=== PATIENT | female | born 1940 | race Caucasian/White ===

== ENCOUNTER 2016-06-27 19:37 | Inpatient (IN) | payer MEDICARE, MEDICAID ==
[~2016-06-27] VITALS: Ht 152.4 cm; Wt 39.6 kg
[~2016-06-27 19:37] MED LIST: ARIP5TAB20 PO; ASCO500T20 PO; ASPI-892 PO; BETH25TA PO; BSC10SU PR; CHOL100011 PO; DCS100C PO; FLUO10CA19 PO; FOLI1TAB24 PO; FURO40TA4 PO; HYDR-757 PO; IPRA3AMP11 INH; IRON150C13 PO; MAGN-47 PO; MELA1TAB11 PO; MEMA5TAB2 PO; MIRT15TA6 PO; MULT-974 PO; NF-TYLARTH PO; POLY17PO23 PO; TRAM50TA2 PO; WARF2.5T PO; [UNRECOGNIZED DRUG - CODE] PO
[2016-06-27] MEDS ORDERED: NS IV 1000 ML 1,000 ML IV ONE (19:44)
--- NOTE | 2016-06-27 20:53 | Diagnostic Imaging Report ---
INDICATION: Fever, poor appetite. COMPARISON: 10/28/2014. FINDINGS: Right basilar heterogeneous consolidations are new since prior examination. No pleural effusion or pneumothorax. Normal heart size. Normal pulmonary vasculature. IMPRESSION: 1. Right basilar pneumonia. Dictated by: Dictated on workstation # [id number]
[2016-06-27 20:54] LABS: INR 1.3 (0.8-1.4); PROTHROMBIN TIME PATIENT 15.4 SEC (12.2-14.7)
--- NOTE | 2016-06-27 20:58 | ED General ---
General Chief Complaint: Fever-Adult/Adol Stated Complaint: FEVER Nursing Triage Note: EMS activated for c/o poor eating. Pt report on scene included sats in 78% range for over an hr. 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 91% Rm air after EMS offload. Pt is non-verbal, hx Alzheimers. Nursing Sepsis Screen: Possible Sepsis Risk Source of Information: EMS, [facility] Records (ALL PMH IS FROM [facility] NOTES) History of Present Illness Time Seen by Provider: 19:40 Initial Comments PT ARRIVES VIA EMS FROM [facility] EMS WAS CALLED FOR PT WITH "DECREASED APPETITE" ON EMS ARRIVAL AT SCENE, PT WAS NOTED TO HAVE O2 SATS IN 70'S, AND HAD BEEN THAT WAY FOR AN HOUR ACCORDING TO [facility] STAFF O2 SATS IN LOW 90'S ON O2 BY EMS PT HAD TEMP OF 102.9, SO [facility] STAFF GAVE PT ONE TYLENOL AND ONE HYDROCODONE PT IS NON-VERBAL, LETHARGIC, AND DOES NOT FOLLOW ANY COMMANDS PT IS DNR NO OTHER INFORMATION IS OBTAINABLE PCP: DR. MOORE Allergies and Home Medications Allergies Coded Allergies: No Known Drug Allergies (Unverified , 10/20/14) Home Medications Acetaminophen 650 Mg Cplt, 650 MG PO Q4H PRN for PAIN, (Reported) Albuterol/Ipratropium 3 Ml Nebu, 3 ML INH Q6H PRN for SHORTNESS OF BREATH, ( Reported) Aripiprazole 5 Mg Tablet, 5 MG PO DAILY, (Reported) Ascorbic Acid 500 Mg Tablet, 500 MG PO DAILY, (Reported) Aspirin 81 Mg Tabec, 81 MG PO DAILY, (Reported) Bethanechol Chloride 25 Mg Tablet, 25 MG PO QID, (Reported) Bisacodyl 10 Mg Supp, 10 MG [place] DAILY PRN for CONSTIPATION, (Reported) Cholecalciferol 1,000 Unit Capsule, 2,000 UNIT PO DAILY, (Reported) TAKES 2 (1000UNIT) CAPSULES Docusate Sodium 100 Mg Cap, 100 MG PO BID, (Reported) Fluoxetine Hcl 10 Mg Capsule, 10 MG PO DAILY, (Reported) Folic Acid 1 Mg Tablet, 1 MG PO DAILY, (Reported) Furosemide 40 Mg Tablet, 40 MG PO DAILY, (Reported) Hydrocodone Bit/Acetaminophen 1 Tab Tablet, 1-2 PO Q4H, #60 (Reported) Magnesium Hydroxide 400 Mg/5 Ml Oral.susp, 30 ML PO DAILY PRN for NO BM FOR 3 DAYS, (Reported) Megestrol Acetate 8 Oz Susp, 200 MG PO BID, (Reported) Memantine Hcl 5 Mg Tablet, 10 MG PO BID, (Reported) TAKES 2 (5MG) TABLETS Mirtazapine 15 Mg Tablet, 7.5 MG PO HS, (Reported) TAKES 1/2 (7.5MG) TABLET Mirtazapine 15 Mg Tablet, 7.5 MG PO WITH EVENING MEAL, (Reported) TAKES 1/2 (15MG) TABLET Multivitamin 1 Each Tablet, 1 TAB PO DAILY, (Reported) Polyethylene Glycol 17 Gm Pack, 17 GM PO DAILY PRN for CONSTIPATION, (Reported) Polysaccharide Iron Complex 150 Mg Cap, 1 EACH PO BID, #60 (Reported) Pyridoxine/Melatonin 1 Tab Tablet, 6 MG PO HS, (Reported) TAKES 2 (3MG) TABLETS Tramadol Hcl 50 Mg Tablet, 50 MG PO TID PRN for PAIN, (Reported) Warfarin Sodium 2.5 Mg Tablet, 2.5 MG PO HS, #21 (Reported) Constitutional: see HPI, fever, other (UNABLE TO OBTAIN ANY INFORMATION FROM PT ) Past Itzovjj-Vrdodw-Qbksck Hx Patient Social History Smoking Status: Unknown if Ever Smoked 2nd Hand Smoke Exposure: No Recent Foreign Travel: No Contact w/Someone Who Travel: No Recent Infectious Disease Expo: No Recent Hopitalizations: No Immunizations Up To Date Tetanus Booster (TDap): Unknown Date of Influenza Vaccine: Sep 21, 2014 Seasonal Allergies Seasonal Allergies: No Surgeries HX Surgeries: Yes (RIGHT HIP FX / REPLACEMENT, SCAR TO RIGHT FLANK--? RENAL SURG ? ; SCAR IN RLQ--? APPY? ; SURGICAL SCAR TO LEFT ANKLE) Surgeries: Appendectomy, CABG, Orthopedic Respiratory Hx Respiratory Disorders: Yes Respiratory Disorders: COPD Cardiovascular Hx Cardiac Disorders: Yes Cardiac Disorders: Coronary Artery Disease, Hypertension Neurological Hx Neurological Disorders: Yes (ALZHEIMER'S ; ESSENTALLY NON-VERBAL) Neurological Disorders: Dementia Reproductive System Hx Reproductive Disorders: No Genitourinary Hx Genitourinary Disorders: Yes (RETENTION) Genitourinary Disorders: Neurogenic Bladder Gastrointestinal Hx Gastrointestinal Disorders: Yes (Hx Dysphagia) Gastrointestinal Disorders: Chronic Constipation Musculoskeletal Hx Musculoskeletal Disorders: Yes (RIGHT HIP FX) Musculoskeletal Disorders: Fractures Endocrine Hx Endocrine Disorders: No HEENT HX ENT Disorders: Yes (DYSPHAGIA) Cancer Hx Cancer: No Psychosocial Hx Psychiatric Problems: Yes (INSOMNIA) Behavioral Health Disorders: Sleep Difficulties, Bipolar, Depression Integumentary HX Skin/Integumentary Disorder: No Blood Transfusions Hx Blood Disorders: No Physical Exam Vital Signs Vital Sign - Last 12Hours 06/27/16 19:38 Temp 99.9 Pulse 102 Resp 20 B/P (MAP) 119/57 Pulse Ox 95 O2 Delivery Simple Mask Capillary Refill : Less Than 3 Seconds General Appearance: Thin, Other (PT LETHARGIC, LAYING IN POSITION ON LEFT SIDE. DOES OPEN EYES TO VOICE, BUT OTHERWISE DOES NOT FOLLOW ANY OTHER COMMANDS AND IS NOT TALKING ON ARRIVAL) HEENT: PERRL/EOMI, Other (DRY ORAL MUCOSA) Respiratory: Rales (IN BASES) Cardiovascular: Regular Rate, Rhythm, No Edema, No JVD, Normal Peripheral Pulses, Systolic Murmur (1-2/6) Gastrointestinal: Normal Bowel Sounds, No Organomegaly, No Pulsatile Mass, Non Tender, Soft Back: No CVA Tenderness Extremity: Normal Capillary Refill, Non Tender, No Pedal Edema Neurologic/Psychiatric: No Motor/Sensory Deficits (MOVES ALL EXTREMITIES), Other (MENTATION ABOVE. PT IS NOT TALKING OR FOLLOWING ANY COMMANDS OTHER THAN EYE OPENING TO VOICE. ) Skin: Normal Color, Warm/Dry, Other (DRESSING TO LEFT LOWER LEG IS CLEAN/ DRY / INTACT) Focused Exam Lactic Acid Level Progress/Results/Core Measures Results/Orders Lab Results Laboratory Tests Test 06/27/16 20:28 06/27/16 21:00 06/27/16 23:09 Range/Units White Blood Count 14.6 H 4.3-11.0 10^3/uL Red Blood Count 4.58 4.35-5.85 10^6/uL Hemoglobin 12.5 11.5-16.0 G/DL Hematocrit 40 35-52 % Mean Corpuscular Volume 87 80-99 FL Mean Corpuscular Hemoglobin 27 25-34 PG Mean Corpuscular Hemoglobin Concent 31 L 32-36 G/DL Red Cell Distribution Width 15.2 H 10.0-14.5 % Platelet Count 306 130-400 10^3/uL Mean Platelet Volume 10.0 7.4-10.4 FL Neutrophils (%) (Auto) 87 H 42-75 % Lymphocytes (%) (Auto) 6 L 12-44 % Monocytes (%) (Auto) 7 0-12 % Eosinophils (%) (Auto) 0 0-10 % Basophils (%) (Auto) 0 0-10 % Neutrophils # (Auto) 12.7 H 1.8-7.8 X 10^3 Lymphocytes # (Auto) 0.8 L 1.0-4.0 X 10^3 Monocytes # (Auto) 1.0 0.0-1.0 X 10^3 Eosinophils # (Auto) 0.0 0.0-0.3 10^3/uL Basophils # (Auto) 0.0 0.0-0.1 10^3/uL Neutrophils % (Manual) 72 % Lymphocytes % (Manual) 10 % Monocytes % (Manual) 5 % Eosinophils % (Manual) 0 % Basophils % (Manual) 0 % Band Neutrophils 13 % Blood Morphology Comment NORMAL Prothrombin Time 15.4 H 12.2-14.7 SEC INR Comment 1.3 0.8-1.4 Activated Partial Thromboplast Time 40 H 24-35 SEC Sodium Level 144 135-145 MMOL/L Potassium Level 4.0 3.6-5.0 MMOL/L Chloride Level 106 98-107 MMOL/L Carbon Dioxide Level 25 21-32 MMOL/L Anion Gap 13 5-14 MMOL/L Blood Urea Nitrogen 37 H 7-18 MG/DL Creatinine 0.99 0.60-1.30 MG/DL Estimat Glomerular Filtration Rate 54 BUN/Creatinine Ratio 37 Glucose Level 132 H 70-105 MG/DL Lactic Acid Level 0.90 0.50-2.00 MMOL/L Calcium Level 9.8 8.5-10.1 MG/DL Magnesium Level 2.1 1.8-2.4 MG/DL Total Bilirubin 0.3 0.1-1.0 MG/DL Aspartate Amino Transf (AST/SGOT) 30 5-34 U/L Alanine Aminotransferase (ALT/SGPT) 21 0-55 U/L Alkaline Phosphatase 101 40-136 U/L Total Creatine Kinase 24 L 29-168 U/L Creatine Kinase MB 0.9 <6.6 NG/ML Troponin I < 0.30 <0.30 NG/ML B-Type Natriuretic Peptide 48.2 <100.0 PG/ML Total Protein 8.0 6.4-8.2 G/DL Albumin 3.4 3.2-4.5 G/DL Blood Gas Puncture Site RIGHT RADIAL Blood Gas Patient Temperature 99.9 Arterial Blood pH 7.33 *L 7.37-7.43 Arterial Blood Partial Pressure CO2 56 H 35-45 MMHG Arterial Blood Partial Pressure O2 51 L 79-93 MMHG Arterial Blood HCO3 28 H 23-27 MMOL/L Arterial Blood Total CO2 29.6 21.0-31.0 MMOL/L Arterial Blood Oxygen Saturation 81 L 94-100 % Arterial Blood Base Excess 2.6 H -2.5-2.5 MMOL/L Ken Test POSITIVE Blood Gas Ventilator Setting NO Blood Gas Inspired Oxygen 6L Urine Color YELLOW Urine Clarity VERY CLOUDY H Urine pH 5 5-9 Urine Specific [place] 1.015 L 1.016-1.022 Urine Protein 3+ H NEGATIVE Urine Glucose (UA) NEGATIVE NEGATIVE Urine Ketones NEGATIVE NEGATIVE Urine Nitrite NEGATIVE NEGATIVE Urine Bilirubin NEGATIVE NEGATIVE Urine Urobilinogen NORMAL NORMAL MG/DL Urine Leukocyte Esterase 3+ H NEGATIVE Urine RBC (Auto) 5+ H NEGATIVE Urine RBC >100 H /HPF Urine WBC 10-25 H /HPF Urine Squamous Epithelial Cells 2-5 /HPF Urine Crystals NONE /LPF Urine Bacteria FEW H /HPF Urine Casts NONE /LPF Urine Mucus NEGATIVE /LPF Urine Culture Indicated YES Micro Results Microbiology 06/27/16 Influenza Types A,B Antigen (SUKUMAR) - Final, Complete My Orders Orders - AMTEUSZ BREWER DO Saline Lock/Iv-Start (06/27/16 19:44) Ekg Tracing (06/27/16 19:44) O2 (06/27/16 19:44) Monitor-Rhythm Ecg Trace Only (06/27/16 19:44) Arterial Blood Gas (06/27/16 19:44) BNP (06/27/16 19:44) Cbc With Automated Diff (06/27/16 19:44) Comprehensive Metabolic Panel (06/27/16 19:44) Creatine Kinase (06/27/16 19:44) Creatine Kinase Mb (06/27/16 19:44) Lactic Acid Analyzer (06/27/16 19:44) Magnesium (06/27/16 19:44) Protime With Inr (06/27/16 19:44) Partial Thromboplastin Time (06/27/16 19:44) Troponin I (06/27/16 19:44) Blood Culture (06/27/16 19:44) Influenza A And B Antigens (06/27/16 19:44) Chest 1 View, Ap/Pa Only (06/27/16 19:44) Saline Lock/Iv-Start (06/27/16 19:44) Ns Iv 1000 Ml (Sodium Chloride 0.9%) (06/27/16 19:44) Manual Differential (06/27/16 20:28) Ceftriaxone Injection (Rocephin Injectio (06/27/16 21:15) Medications Given in ED Current Medications Medications Dose Ordered Sig/Yonny Route Start Time Stop Time Status Last Admin Dose Admin Sodium Chloride 1,000 ml @ 0 mls/hr Q0M ONCE IV 06/27/16 19:44 06/27/16 19:46 DC 06/27/16 20:38 999 MLS/HR Vital Signs/I&O Vital Sign - Last 12Hours 06/27/16 06/27/16 06/27/16 06/27/16 19:38 21:30 21:30 21:38 Temp 99.9 98.4 98.4 Pulse 102 89 89 Resp 20 18 18 B/P (MAP) 119/57 132/62 132/62 Pulse Ox 95 100 100 91 O2 Delivery Simple Mask Simple Mask Simple Mask O2 Flow Rate 4.00 4.00 4.00 06/27/16 06/27/16 06/27/16 06/27/16 22:00 22:10 22:10 22:35 Temp 98.4 97.6 Pulse 89 89 Resp 18 18 B/P (MAP) 148/69 Pulse Ox 99 99 99 98 O2 Delivery Simple Mask Simple Mask O2 Flow Rate 4.00 4.00 4.00 2.00 06/28/16 06/28/16 06/28/16 06/28/16 00:10 01:03 02:04 04:03 Temp 97.8 96.8 96.8 Pulse 91 85 93 87 Resp 20 16 16 B/P (MAP) 156/74 143/57 159/63 Pulse Ox 95 96 97 O2 Delivery Nasal Cannula Nasal Cannula Nasal Cannula O2 Flow Rate 2.00 2.00 2.00 06/28/16 04:50 Temp 96.0 Pulse 90 Resp 16 B/P (MAP) 146/87 Pulse Ox 92 O2 Delivery Nasal Cannula O2 Flow Rate 2.00 Blood Pressure Mean: 77 Progress Note : Progress Note O2 SATS REMAINED 95-96 % ON 6L / SIMPLE MASK PT MUCH MORE ALERT AT TIME OF ADMIT AND NODS HEAD WHEN I TOLD HER SHE HAD PNEUMONIA AND WOULD BE STAYING IN HOSPITAL, AND SAYS "YES" WHEN I ASKED HER IF SHE HAD BEEN COUGHING. NO OTHER VERBAL RESPONSE FROM PT ECG Initial ECG Impression Time: 20:05 Initial ECG Rate: 98 Initial ECG Rhythm: Normal Sinus Initial ECG Comparisson: No Previous ECG Available Diagnostic Imaging Comments CXR--RIGHT BASILAR PNEUMONIA--PER RADIOLOGIST REPORT @ 2056 Reviewed: Reviewed by Me Departure Communication Progress Notes 2024--SPOKE WITH DR. MOORE--WILL CALL HIM BACK WITH ALL TEST RESULTS. 2107--SPOKE WITH DR. MOORE--ACCEPTS PT FOR ADMIT Impression Impression: Primary Impression: RLL pneumonia Additional Impressions: Hypoxia Sepsis Dementia Acute respiratory failure Dehydration Disposition: ADMITTED INPATIENT Condition: Improved Decision to Admit Reason: Admit from ER (General) Decision to Admit/Date: Jun 27, 2016 Time/Decision to Admit Time: 21:00 Departure-Patient Inst. Referrals: LO MOORE DO (PCP/Family) Primary Care Physician MATEUSZ BREWER DO Jun 27, 2016 20:58
[2016-06-27 20:59] LABS: BASOPHILS % (AUTO) 0 % (0-10); EOSINOPHILS % (AUTO) 0 % (0-10); LYMPHOCYTES # (AUTO) 0.8 X 10^3 (1.0-4.0); LYMPHOCYTES % (AUTO) 6 % (12-44); MEAN CORPUSCULAR HEMOGLOBIN 27 PG (25-34); MEAN CORPUSCULAR HGB CONC 31 G/DL (32-36); MEAN CORPUSCULAR VOLUME 87 FL (80-99); MONOCYTES % (AUTO) 7 % (0-12); NEUTROPHILS # (AUTO) 12.7 X 10^3 (1.8-7.8); NEUTROPHILS % (AUTO) 87 % (42-75); PLATELET COUNT 306 10^3/uL (130-400); RED BLOOD COUNT 4.58 10^6/uL (4.35-5.85); RED CELL DISTRIBUTION WIDTH 15.2 % (10.0-14.5); WHITE BLOOD COUNT 14.6 10^3/uL (4.3-11.0)
[2016-06-27 21:05] LABS: ABG BASE EXCESS 2.6 MMOL/L (-2.5-2.5); ABG HCO3 28 MMOL/L (23-27); ABG OXYGEN SATURATION 81 % (94-100); ABG PCO2 56 MMHG (35-45); ABG PO2 51 MMHG (79-93); ABG TCO2 29.6 MMOL/L (21.0-31.0)
[2016-06-27 21:06] LABS: ABG PH 7.33 (7.37-7.43); ALLENS TEST POSITIVE
[2016-06-27 21:07] LABS: PATIENT TEMP 99.9
[2016-06-27 21:07] LABS: ALANINE AMINOTRANSFERASE 21 U/L (0-55); ALBUMIN 3.4 G/DL (3.2-4.5); ANION GAP 13 MMOL/L (5-14); ASPARTATE AMINO TRANSFERASE 30 U/L (5-34); BILIRUBIN,TOTAL 0.3 MG/DL (0.1-1.0); BLOOD UREA NITROGEN 37 MG/DL (7-18); BUN/CREATININE RATIO 37; CALCIUM 9.8 MG/DL (8.5-10.1); CARBON DIOXIDE 25 MMOL/L (21-32); CHLORIDE 106 MMOL/L (98-107); CREATINE KINASE 24 U/L (29-168); CREATININE SERUM 0.99 MG/DL (0.60-1.30); GFR ESTIMATED 54; GLUCOSE 132 MG/DL (70-105); MAGNESIUM 2.1 MG/DL (1.8-2.4); SODIUM 144 MMOL/L (135-145)
[2016-06-27 21:13] LABS: TROPONIN I < 0.30 NG/ML (<0.30)
[2016-06-27 21:15] LABS: BAND NEUTROPHILS 13 %; BASOPHILS % (MANUAL) 0 %; EOSINOPHILS % (MANUAL) 0 %; LYMPHOCYTES % (MANUAL) 10 %; NEUTROPHILS % (MANUAL) 72 %
[2016-06-27] MEDS ORDERED: cefTRIAXone INJECTION 1,000 MG in NS (IVPB) 50 ML IV ONE (21:15)
[2016-06-27 21:30] VITALS: BP 132/62
[2016-06-27 22:10] VITALS: BP 148/69
[2016-06-27] MEDS ORDERED: AZITHROMYCIN 500 MG/NS 250 ML IVPB (1 X DOSE) IV SCH ×2 (22:32)
[2016-06-27] MEDS ORDERED: RT-ALBUTEROL SULF 2.5 MG/3 ML PRE-MIX VIAL IH PRN (22:45)
[2016-06-27] MEDS ORDERED: ACETAMINOPHEN 650 MG SUPP (TYLENOL) PR PRN (22:45)
[2016-06-27 23:14] LABS: BILIRUBIN,URINE NEGATIVE (NEGATIVE); KETONES,URINE NEGATIVE (NEGATIVE); LEUKOCYTE ESTERASE ,URINE 3+ (NEGATIVE); NITRITE,URINE NEGATIVE (NEGATIVE); PH,URINE 5 (5-9); PROTEIN,URINE 3+ (NEGATIVE); UROBILINOGEN,URINE NORMAL (NORMAL)
[2016-06-27] MEDS: D5 1/2 NS 1000 ML IV SOLUTION 1,000 ML IV SCH (23:18)
[2016-06-28] VITALS (11 sets, daily range): BP systolic 103–166; BP diastolic 57–87
[2016-06-28 06:11] LABS: BASOPHILS % (AUTO) 0 % (0-10); EOSINOPHILS % (AUTO) 0 % (0-10); LYMPHOCYTES # (AUTO) 0.9 X 10^3 (1.0-4.0); LYMPHOCYTES % (AUTO) 6 % (12-44); MEAN CORPUSCULAR HEMOGLOBIN 27 PG (25-34); MEAN CORPUSCULAR HGB CONC 30 G/DL (32-36); MEAN CORPUSCULAR VOLUME 89 FL (80-99); MONOCYTES % (AUTO) 7 % (0-12); NEUTROPHILS % (AUTO) 87 % (42-75); PLATELET COUNT 270 10^3/uL (130-400); RED BLOOD COUNT 3.83 10^6/uL (4.35-5.85); RED CELL DISTRIBUTION WIDTH 14.9 % (10.0-14.5); WHITE BLOOD COUNT 13.8 10^3/uL (4.3-11.0)
[2016-06-28 06:28] LABS: ALANINE AMINOTRANSFERASE 18 U/L (0-55); ALBUMIN 2.8 G/DL (3.2-4.5); ANION GAP 8 MMOL/L (5-14); ASPARTATE AMINO TRANSFERASE 22 U/L (5-34); BILIRUBIN,TOTAL 0.2 MG/DL (0.1-1.0); BLOOD UREA NITROGEN 26 MG/DL (7-18); BUN/CREATININE RATIO 34; CALCIUM 8.8 MG/DL (8.5-10.1); CARBON DIOXIDE 26 MMOL/L (21-32); CHLORIDE 111 MMOL/L (98-107); CREATININE SERUM 0.76 MG/DL (0.60-1.30); GFR ESTIMATED > 60; GLUCOSE 141 MG/DL (70-105); POTASSIUM 3.9 MMOL/L (3.6-5.0); SODIUM 145 MMOL/L (135-145); TOTAL PROTEIN 6.6 G/DL (6.4-8.2)
[2016-06-28] MEDS ORDERED: CATHETER FLUSH 10 ML SYR IV PRN (07:00)
[2016-06-28] MEDS ORDERED: PHARMACY TO DOSE IV SCH (07:30)
[2016-06-28] MEDS ORDERED: PIPERACILLIN SODIUM/TAZOBACTAM 4.5 GM in NS (IVPB) 100 ML IV SCH (07:30)
--- NOTE | 2016-06-28 07:30 | Pulmonary Consultation ---
History of Present Illness History of Present Illness Date of Consultation 06/28/16 07:25 Date of Admission History of Present Illness 75yo pt from [place] [facility] presented secondary to decreased appetite. Upon EMS arrival Sp02 was 70's. Pt was also found to have a fever of 102.9. CXR shows RLL pneumonia. I am consulted for pulmonary. Allergies and Home Medications Allergies Coded Allergies: No Known Drug Allergies (Unverified , 10/20/14) Home Medications Acetaminophen 650 Mg Cplt, 650 MG PO Q4H PRN for PAIN, (Reported) Albuterol/Ipratropium 3 Ml Nebu, 3 ML INH Q6H PRN for SHORTNESS OF BREATH, ( Reported) Aripiprazole 5 Mg Tablet, 5 MG PO DAILY, (Reported) Ascorbic Acid 500 Mg Tablet, 500 MG PO DAILY, (Reported) Aspirin 81 Mg Tabec, 81 MG PO DAILY, (Reported) Bethanechol Chloride 25 Mg Tablet, 25 MG PO QID, (Reported) Bisacodyl 10 Mg Supp, 10 MG [place] DAILY PRN for CONSTIPATION, (Reported) Cholecalciferol 1,000 Unit Capsule, 2,000 UNIT PO DAILY, (Reported) TAKES 2 (1000UNIT) CAPSULES Docusate Sodium 100 Mg Cap, 100 MG PO BID, (Reported) Fluoxetine Hcl 10 Mg Capsule, 10 MG PO DAILY, (Reported) Folic Acid 1 Mg Tablet, 1 MG PO DAILY, (Reported) Furosemide 40 Mg Tablet, 40 MG PO DAILY, (Reported) Hydrocodone Bit/Acetaminophen 1 Tab Tablet, 1-2 PO Q4H, #60 (Reported) Magnesium Hydroxide 400 Mg/5 Ml Oral.susp, 30 ML PO DAILY PRN for NO BM FOR 3 DAYS, (Reported) Megestrol Acetate 8 Oz Susp, 200 MG PO BID, (Reported) Memantine Hcl 5 Mg Tablet, 10 MG PO BID, (Reported) TAKES 2 (5MG) TABLETS Mirtazapine 15 Mg Tablet, 7.5 MG PO HS, (Reported) TAKES 1/2 (7.5MG) TABLET Mirtazapine 15 Mg Tablet, 7.5 MG PO WITH EVENING MEAL, (Reported) TAKES 1/2 (15MG) TABLET Multivitamin 1 Each Tablet, 1 TAB PO DAILY, (Reported) Polyethylene Glycol 17 Gm Pack, 17 GM PO DAILY PRN for CONSTIPATION, (Reported) Polysaccharide Iron Complex 150 Mg Cap, 1 EACH PO BID, #60 (Reported) Pyridoxine/Melatonin 1 Tab Tablet, 6 MG PO HS, (Reported) TAKES 2 (3MG) TABLETS Tramadol Hcl 50 Mg Tablet, 50 MG PO TID PRN for PAIN, (Reported) Warfarin Sodium 2.5 Mg Tablet, 2.5 MG PO HS, #21 (Reported) Past Fbfodpj-Qzmfns-Jubjkt Hx Patient Social History Smoking Status: Unknown if Ever Smoked 2nd Hand Smoke Exposure: No Recent Foreign Travel: No Contact w/Someone Who Travel: No Recent Infectious Disease Expo: No Recent Hopitalizations: No Physical Abuse Screen: No Sexual Abuse: No Immunizations Up To Date Tetanus Booster (TDap): Unknown Date of Pneumonia Vaccine: Oct 24, 2014 Date of Influenza Vaccine: Jan 17, 2016 Seasonal Allergies Seasonal Allergies: No Surgeries HX Surgeries: Yes (RIGHT HIP FX / REPLACEMENT, SCAR TO RIGHT FLANK--? RENAL SURG ? ; SCAR IN RLQ--? APPY? ; SURGICAL SCAR TO LEFT ANKLE) Surgeries: Appendectomy, CABG, Orthopedic Respiratory Hx Respiratory Disorders: Yes Respiratory Disorders: COPD Cardiovascular Hx Cardiac Disorders: Yes Cardiac Disorders: Coronary Artery Disease, Hypertension Neurological Hx Neurological Disorders: Yes (ALZHEIMER'S ; ESSENTALLY NON-VERBAL) Neurological Disorders: Dementia Reproductive System Hx Reproductive Disorders: No Genitourinary Hx Genitourinary Disorders: Yes (RETENTION) Genitourinary Disorders: Neurogenic Bladder Gastrointestinal Hx Gastrointestinal Disorders: Yes (Hx Dysphagia) Gastrointestinal Disorders: Chronic Constipation Musculoskeletal Hx Musculoskeletal Disorders: Yes (RIGHT HIP FX) Musculoskeletal Disorders: Fractures Endocrine Hx Endocrine Disorders: No HEENT HX ENT Disorders: Yes (DYSPHAGIA) Cancer Hx Cancer: No Psychosocial Hx Psychiatric Problems: Yes (INSOMNIA) Behavioral Health Disorders: Sleep Difficulties, Bipolar, Depression Integumentary HX Skin/Integumentary Disorder: No Blood Transfusions Hx Blood Disorders: No Family Medical History Family Medial History: Patient reports no known family medical history. Exam Exam Vital Signs Date Time Temp Pulse Resp B/P (MAP) Pulse Ox O2 Delivery O2 Flow Rate FiO2 06/28/16 07:00 89 2.00 06/28/16 06:10 98.4 103 18 138/57 91 Nasal Cannula 2.00 06/28/16 04:50 96.0 90 16 146/87 92 Nasal Cannula 2.00 06/28/16 04:03 96.8 87 16 159/63 97 Nasal Cannula 2.00 06/28/16 02:04 96.8 93 16 143/57 96 Nasal Cannula 2.00 06/28/16 01:03 85 06/28/16 00:10 97.8 91 20 156/74 95 Nasal Cannula 2.00 06/27/16 22:35 98 2.00 06/27/16 22:10 97.6 89 18 148/69 99 Simple Mask 4.00 06/27/16 22:10 99 Simple Mask 4.00 06/27/16 22:00 98.4 89 18 99 4.00 06/27/16 21:38 91 Simple Mask 4.00 06/27/16 21:30 98.4 89 18 132/62 100 Simple Mask 4.00 06/27/16 21:30 98.4 89 18 132/62 100 4.00 06/27/16 19:38 99.9 102 20 119/57 95 Simple Mask I & O 06/28/16 07:00 Intake Total 1300 ml Output Total 100 ml Balance 1200 ml General Appearance: Thin, Other (PT LETHARGIC, LAYING IN POSITION ON LEFT SIDE. DOES OPEN EYES TO VOICE, BUT OTHERWISE DOES NOT FOLLOW ANY OTHER COMMANDS AND IS NOT TALKING ON ARRIVAL) HEENT: PERRL/EOMI, Other (DRY ORAL MUCOSA) Respiratory: Rales (IN BASES) Cardiovascular: Regular Rate, Rhythm, No Edema, No JVD, Normal Peripheral Pulses, Systolic Murmur (1-2/6) Capillary Refill: Less Than 3 Seconds Extremity: Normal Capillary Refill, Non Tender, No Pedal Edema Neurologic/Psychiatric: No Motor/Sensory Deficits (MOVES ALL EXTREMITIES), Other (MENTATION ABOVE. PT IS NOT TALKING OR FOLLOWING ANY COMMANDS OTHER THAN EYE OPENING TO VOICE. ) Skin: Normal Color, Warm/Dry, Other (DRESSING TO LEFT LOWER LEG IS CLEAN/ DRY / INTACT) Results Lab Laboratory Tests 06/27/16 20:28 06/28/16 06:00 Assessment/Plan Assessment/Plan HCAP with hypoxia and sepsis -Change Abx to vanco zosyn -await wright cultures Dementia Dehydration -IVF Clinical Quality Measures DVT/VTE Risk/Contraindication: Risk Factor Score Per Nursin RFS Level Per Nursing on Admit: 4+=Very High HANSA CAR DO Jun 28, 2016 07:30
--- NOTE | 2016-06-28 07:47 | History & Physicial ---
History of Present Illness History of Present Illness Reason for visit/HPI patient has Alzheimer's and unable to give a history area Patient states she 15 years old. Patient does not know where she is at now. Patient resident of a halfway. According to them patient running an elevated temperature of over 102. Pulse ox went down to the 70s. Patient weak. Patient transferred to emergency room showing a right lower lobe pneumonia infection. Patient admitted Date of Admission Jun 27, 2016 at 21:00 I consulted on this patient on 06/28/16 07:44 Attending Physician Balaji Moore DO Admitting Physician Balaji Moore DO Consult Allergies and Home Medications Allergies Coded Allergies: No Known Drug Allergies (Unverified , 10/20/14) Home Medications Acetaminophen 650 Mg Cplt, 650 MG PO Q4H PRN for PAIN, (Reported) Albuterol/Ipratropium 3 Ml Nebu, 3 ML INH Q6H PRN for SHORTNESS OF BREATH, ( Reported) Aripiprazole 5 Mg Tablet, 5 MG PO DAILY, (Reported) Ascorbic Acid 500 Mg Tablet, 500 MG PO DAILY, (Reported) Aspirin 81 Mg Tabec, 81 MG PO DAILY, (Reported) Bethanechol Chloride 25 Mg Tablet, 25 MG PO QID, (Reported) Bisacodyl 10 Mg Supp, 10 MG [place] DAILY PRN for CONSTIPATION, (Reported) Cholecalciferol 1,000 Unit Capsule, 2,000 UNIT PO DAILY, (Reported) TAKES 2 (1000UNIT) CAPSULES Docusate Sodium 100 Mg Cap, 100 MG PO BID, (Reported) Fluoxetine Hcl 10 Mg Capsule, 10 MG PO DAILY, (Reported) Folic Acid 1 Mg Tablet, 1 MG PO DAILY, (Reported) Furosemide 40 Mg Tablet, 40 MG PO DAILY, (Reported) Hydrocodone Bit/Acetaminophen 1 Tab Tablet, 1-2 PO Q4H, #60 (Reported) Magnesium Hydroxide 400 Mg/5 Ml Oral.susp, 30 ML PO DAILY PRN for NO BM FOR 3 DAYS, (Reported) Megestrol Acetate 8 Oz Susp, 200 MG PO BID, (Reported) Memantine Hcl 5 Mg Tablet, 10 MG PO BID, (Reported) TAKES 2 (5MG) TABLETS Mirtazapine 15 Mg Tablet, 7.5 MG PO HS, (Reported) TAKES 1/2 (7.5MG) TABLET Mirtazapine 15 Mg Tablet, 7.5 MG PO WITH EVENING MEAL, (Reported) TAKES 1/2 (15MG) TABLET Multivitamin 1 Each Tablet, 1 TAB PO DAILY, (Reported) Polyethylene Glycol 17 Gm Pack, 17 GM PO DAILY PRN for CONSTIPATION, (Reported) Polysaccharide Iron Complex 150 Mg Cap, 1 EACH PO BID, #60 (Reported) Pyridoxine/Melatonin 1 Tab Tablet, 6 MG PO HS, (Reported) TAKES 2 (3MG) TABLETS Tramadol Hcl 50 Mg Tablet, 50 MG PO TID PRN for PAIN, (Reported) Warfarin Sodium 2.5 Mg Tablet, 2.5 MG PO HS, #21 (Reported) Past Gbyfodw-Cmwcxe-Rhjegb Hx Patient Social History Smoking Status: Unknown if Ever Smoked 2nd Hand Smoke Exposure: No Physical Abuse Screen: No Sexual Abuse: No Recent Foreign Travel: No Contact w/other who traveled: No Recent Hopitalizations: No Recent Infectious Disease Expo: No Immunizations Up To Date Tetanus Booster (TDap): Unknown Date of Pneumonia Vaccine: Oct 24, 2014 Date of Influenza Vaccine: Jan 17, 2016 Seasonal Allergies Seasonal Allergies: No Surgeries HX Surgeries: Yes (RIGHT HIP FX / REPLACEMENT, SCAR TO RIGHT FLANK--? RENAL SURG ? ; SCAR IN RLQ--? APPY? ; SURGICAL SCAR TO LEFT ANKLE) Surgeries: Appendectomy, CABG, Orthopedic Respiratory Hx Respiratory Disorders: Yes Cardiovascular Hx Cardiovascular Disorders: Yes Cardiac Disorders: Coronary Artery Disease, Hypertension Neurological Hx Neurological Disorders: Yes (ALZHEIMER'S ; ESSENTALLY NON-VERBAL) Neurological Disorders: Dementia Reproductive System Hx Reproductive Disorders: No Genitourinary Hx Genitourinary Disorders: Yes (RETENTION) Genitourinary Disorders: Neurogenic Bladder Gastrointestinal Hx Gastrointestinal Disorders: Yes (Hx Dysphagia) Gastrointestinal Disorders: Chronic Constipation Musculoskeletal Hx Musculoskeletal Disorders: Yes (RIGHT HIP FX) Musculoskeletal Disorders: Fractures Endocrine Hx Endocrine Disorders: No HEENT HX ENT Disorders: Yes (DYSPHAGIA) Cancer Hx Cancer: No Psychosocial Hx Psychiatric Problems: Yes (INSOMNIA) Behavioral Health Disorders: Sleep Difficulties, Bipolar, Depression Integumentary HX Skin/Integumentary Disorder: No Blood Transfusions Hx Blood Disorders: No Family Medical History Family Hx: Patient reports no known family medical history. Constitutional: fever, weakness EENTM: no symptoms reported Respiratory: short of breath Cardiovascular: no symptoms reported Gastrointestinal: no symptoms reported Genitourinary: no symptoms reported Physical Exam Vital Signs Vital Sign - Last 12Hours 06/27/16 19:38 Temp 99.9 Pulse 102 Resp 20 B/P (MAP) 119/57 Pulse Ox 95 O2 Delivery Simple Mask Capillary Refill : Less Than 3 Seconds General Appearance: No Apparent Distress, Thin Eyes: Bilateral Eye Normal Inspection HEENT: Normal ENT Inspection Neck: Full Range of Motion, Normal Inspection, Non Tender Respiratory: Chest Non Tender, Normal Breath Sounds, No Accessory Muscle Use, No Respiratory Distress Cardiovascular: Regular Rate, Rhythm, No Murmur Gastrointestinal: Non Tender, Soft Assessment/Plan Assessment and Plan right lower lobe pneumonia. Hypoxia. Sepsis. Dementia Problems: Clinical Quality Measures DVT/VTE Risk/Contraindication: Risk Factor Score Per Nursin RFS Level Per Nursing on Admit: 4+=Very High Contraindications-Pharm: Other *list below* BALAJI MOORE DO Jun 28, 2016 07:47
[2016-06-28 07:53] LABS: INR 1.3 (0.8-1.4); PROTHROMBIN TIME PATIENT 15.4 SEC (12.2-14.7)
[2016-06-28] MEDS ORDERED: PIPERACILLIN/TAZOBACTAM 4.5 GM/NS100 ML IVPB IV NR ×2 (08:00)
[2016-06-28] MEDS ORDERED: VANCOMYCIN 750 MG/NS 250 ML IVPB IV NR ×2 (08:00)
[2016-06-28] MEDS ORDERED: MULT-166 PO (08:24)
[2016-06-28] MEDS ORDERED: ACET325T38 PO (08:24)
[2016-06-28] MEDS ORDERED: FLUO10TA PO (08:24)
--- NOTE | 2016-06-28 09:15 | Diagnostic Imaging Report ---
INDICATION: Right lower lobe pneumonia. Hypoxia and acute respiratory failure. EXAMINATION: Chest on 06/28/2016. COMPARISON: 06/27/2016. FINDINGS: There is an infiltrate at the right lung base. This has increased from previous imaging. Mild pulmonary vascular prominence is stable. The heart is unchanged. No pneumothorax is noted. There are no pleural effusions. IMPRESSION: Infiltrate noted at the right lung base which has increased from previous imaging. The remaining chest is stable. Followup is recommended. Dictated by: Dictated on workstation # [id number]
[2016-06-28] MEDS: VANCOMYCIN 500 MG/NS 100 ML IVPB IV SCH ×2 (10:13)
[2016-06-28] MEDS: D5 1/2 NS 1000 ML IV SOLUTION 1,000 ML IV SCH ×3 (11:11→23:49)
--- NOTE | 2016-06-28 11:25 | Physician Query ---
PQ-Uncertain Diagnosis Admission/Discharge Admission Date: Jun 27, 2016 at 21:00 Discharge Date: The medical record reflects the following clinical scenario: History/Risk Factors: Pneumonia with sepsis. Clinical Findings: Blood gas PH 7.33, ABG pC02 56, ABG p02 51, Sats 81% Resp 20. Treatment: 02 6 liters Simple Mask. Question: 1. Is Acute Respiratory Failure with hypoxia a clinically valid diagnosis? yes Acute Respiratory Failure and hypoxia were documented in the ED record/Dr. Ramon with no further documentation in the medical record. 2. If Acute Respiratory Failure with hypoxia was it due to sepsis, other etiology, unspecified or unable to be determined?pneumonia Please document a response below. number 1 yes number 2 pneumonia Please remember a lack of response to the above will prompt a phone page by [facility]/ coding staff. In responding to this query, please exercise your independent professional judgment. The purpose of this communication is to more accurately reflect the complexity of your patients condition. The fact that a question is asked does not imply that any particular answer is desired or expected. Thank you for your timely response to this clarification. Requestors name: Edita Contreras [facility] Phone # ext [phone] or [phone] THIS PHYSICIAN QUERY FORM IS A PERMANENT PART OF THE MEDICAL RECORD EDITA CONTRERAS Jun 28, 2016 11:25 LO MOORE DO Jun 29, 2016 08:53
[2016-06-28] MEDS ORDERED: MILK OF MAGNESIA 400 MG/5 ML 30 ML UDC PO PRN (17:00)
[2016-06-28] MEDS ORDERED: POLYETHYLENE GLYCOL 17 GM (MIRALAX) PACK PO PRN (17:00)
[2016-06-28] MEDS: ACETAMINOPHEN 325 MG TABLET/CAPLET (TYLENOL) PO PRN (17:10)
[2016-06-28] MEDS: PIPERACILLIN/TAZOBACTAM 4.5 GM/NS 100 ML IVPB IV SCH ×2 (20:26)
[2016-06-28] MEDS: DOCUSATE SODIUM 100 MG (COLACE) CAP PO SCH (20:27)
[2016-06-28] MEDS: MELATONIN 3 MG TABLET PO SCH (20:27)
[2016-06-28] MEDS: BETHANECHOL 25 MG (URECHOLINE) TAB PO SCH (20:27)
[2016-06-28] MEDS ORDERED: cefTRIAXone 1 GM/NS 50 ML IVPB IV SCH ×2 (21:00)
[2016-06-28] MEDS ORDERED: ENOXAPARIN 40 MG/0.4 ML (LOVENOX) SYR SC SCH (21:00)
[2016-06-28] MEDS ORDERED: AZITHROMYCIN 250 MG TAB (ZITHROMAX) PO SCH (21:00)
[2016-06-29] VITALS: BP 144/63
[2016-06-29 04:00] VITALS: BP 148/65
[2016-06-29 06:10] LABS: BASOPHILS % (AUTO) 0 % (0-10); EOSINOPHILS % (AUTO) 0 % (0-10); LYMPHOCYTES % (AUTO) 9 % (12-44); MEAN CORPUSCULAR HEMOGLOBIN 27 PG (25-34); MEAN CORPUSCULAR HGB CONC 31 G/DL (32-36); MEAN CORPUSCULAR VOLUME 88 FL (80-99); MEAN PLATELET VOLUME 9.7 FL (7.4-10.4); MONOCYTES # (AUTO) 0.9 X 10^3 (0.0-1.0); MONOCYTES % (AUTO) 8 % (0-12); NEUTROPHILS # (AUTO) 9.5 X 10^3 (1.8-7.8); NEUTROPHILS % (AUTO) 83 % (42-75); PLATELET COUNT 265 10^3/uL (130-400); RED BLOOD COUNT 3.57 10^6/uL (4.35-5.85); RED CELL DISTRIBUTION WIDTH 14.8 % (10.0-14.5); WHITE BLOOD COUNT 11.5 10^3/uL (4.3-11.0)
[2016-06-29] MEDS: BETHANECHOL 25 MG (URECHOLINE) TAB PO SCH ×4 (06:10→20:19)
[2016-06-29] MEDS: MULTIVIT W/MINERALS TAB (THERAGRAN M) PO SCH (06:10)
[2016-06-29 06:23] LABS: INR 1.3 (0.8-1.4); PROTHROMBIN TIME PATIENT 15.6 SEC (12.2-14.7)
[2016-06-29 06:43] LABS: ALANINE AMINOTRANSFERASE 21 U/L (0-55); ALBUMIN 2.5 G/DL (3.2-4.5); ANION GAP 7 MMOL/L (5-14); ASPARTATE AMINO TRANSFERASE 30 U/L (5-34); BILIRUBIN,TOTAL 0.4 MG/DL (0.1-1.0); BLOOD UREA NITROGEN 11 MG/DL (7-18); BUN/CREATININE RATIO 17; CALCIUM 8.5 MG/DL (8.5-10.1); CARBON DIOXIDE 25 MMOL/L (21-32); CHLORIDE 109 MMOL/L (98-107); CREATININE SERUM 0.65 MG/DL (0.60-1.30); GFR ESTIMATED > 60; GLUCOSE 119 MG/DL (70-105); POTASSIUM 3.6 MMOL/L (3.6-5.0); SODIUM 141 MMOL/L (135-145)
--- NOTE | 2016-06-29 07:53 | Pulmonary Progress Note ---
Subjective Subjective/Events-last exam NO complications noted. Exam Exam Vital Signs Date Time Temp Pulse Resp B/P (MAP) Pulse Ox O2 Delivery O2 Flow Rate FiO2 06/29/16 06:45 2.00 06/29/16 04:00 97.8 98 24 148/65 95 Nasal Cannula 2.00 06/29/16 01:16 77 06/29/16 00:00 99.0 100 22 144/63 92 Nasal Cannula 2.00 06/28/16 21:39 97 3.00 06/28/16 20:30 Nasal Cannula 3.00 06/28/16 20:10 98.1 86 20 148/73 97 Nasal Cannula 2.00 06/28/16 19:00 78 06/28/16 18:00 100.3 06/28/16 17:10 101.5 06/28/16 16:45 101.4 100 20 166/74 91 Nasal Cannula 3.00 06/28/16 13:00 91 06/28/16 12:00 99.9 93 20 164/69 93 Nasal Cannula 3.00 06/28/16 10:00 99.5 90 16 152/61 96 Nasal Cannula 3.00 06/28/16 08:00 98.6 98 20 152/61 91 Nasal Cannula 3.00 06/28/16 08:00 93 Nasal Cannula 3.00 I & O 06/29/16 07:00 Intake Total 2110 ml Output Total 120 ml Balance 1990 ml General Appearance: No Apparent Distress, Thin HEENT: Normal ENT Inspection Neck: Full Range of Motion, Normal Inspection, Non Tender Respiratory: Chest Non Tender, Normal Breath Sounds, No Accessory Muscle Use, No Respiratory Distress Cardiovascular: Regular Rate, Rhythm, No Murmur Capillary Refill: Less Than 3 Seconds Extremity: Normal Capillary Refill, Non Tender, No Pedal Edema Neurologic/Psychiatric: No Motor/Sensory Deficits (MOVES ALL EXTREMITIES), Other (MENTATION ABOVE. PT IS NOT TALKING OR FOLLOWING ANY COMMANDS OTHER THAN EYE OPENING TO VOICE. ) Skin: Normal Color, Warm/Dry, Other (DRESSING TO LEFT LOWER LEG IS CLEAN/ DRY / INTACT) Results Lab Laboratory Tests 06/27/16 20:28 06/28/16 06:00 06/29/16 05:58 Assessment/Plan Assessment/Plan HCAP with hypoxia and sepsis -Continue vanco zosyn -CXR looks worse today Abx just changed 06/28./ BNP is normal -await wright cultures Dementia Dehydration -IVF Clinical Quality Measures DVT/VTE Risk/Contraindication: Risk Factor Score Per Nursin RFS Level Per Nursing on Admit: 4+=Very High Contraindications-Pharm: Other *list below* HANSA CAR DO Jun 29, 2016 07:53
[2016-06-29 08:00] VITALS: BP 159/73
--- NOTE | 2016-06-29 08:02 | Progress Note (SOAP) ---
Subjective Subjective/Events-last exam Right lower lobe pneumonia. Hypoxia. Sepsis. Dementia Patient appears weak this morning. Chest x-ray yesterday looks worse in the right lower lobe pneumonia. Patient weak Objective Exam Vital Signs Date Time Temp Pulse Resp B/P (MAP) Pulse Ox O2 Delivery O2 Flow Rate FiO2 06/29/16 06:45 2.00 06/29/16 04:00 97.8 98 24 148/65 95 Nasal Cannula 2.00 06/29/16 01:16 77 06/29/16 00:00 99.0 100 22 144/63 92 Nasal Cannula 2.00 06/28/16 21:39 97 3.00 06/28/16 20:30 Nasal Cannula 3.00 06/28/16 20:10 98.1 86 20 148/73 97 Nasal Cannula 2.00 06/28/16 19:00 78 06/28/16 18:00 100.3 06/28/16 17:10 101.5 06/28/16 16:45 101.4 100 20 166/74 91 Nasal Cannula 3.00 06/28/16 13:00 91 06/28/16 12:00 99.9 93 20 164/69 93 Nasal Cannula 3.00 06/28/16 10:00 99.5 90 16 152/61 96 Nasal Cannula 3.00 06/28/16 08:00 98.6 98 20 152/61 91 Nasal Cannula 3.00 06/28/16 08:00 93 Nasal Cannula 3.00 I & O 06/29/16 07:00 Intake Total 2110 ml Output Total 120 ml Balance 1990 ml Capillary Refill : Less Than 3 Seconds General Appearance: Thin, Other (Dementia) HEENT: Normal ENT Inspection Respiratory: Chest Non Tender, No Respiratory Distress, Decreased Breath Sounds Cardiovascular: Regular Rate, Rhythm, No Murmur Gastrointestinal: non tender, soft Results Lab Laboratory Tests 06/29/16 05:58 Laboratory Tests 06/29/16 05:58: White Blood Count 11.5H, Red Blood Count 3.57L, Hemoglobin 9.7L, Hematocrit 31L , Mean Corpuscular Volume 88, Mean Corpuscular Hemoglobin 27, Mean Corpuscular Hemoglobin Concent 31L, Red Cell Distribution Width 14.8H, Platelet Count 265, Mean Platelet Volume 9.7, Neutrophils (%) (Auto) 83H, Lymphocytes (%) (Auto) 9L , Monocytes (%) (Auto) 8, Eosinophils (%) (Auto) 0, Basophils (%) (Auto) 0, Neutrophils # (Auto) 9.5H, Lymphocytes # (Auto) 1.0, Monocytes # (Auto) 0.9, Eosinophils # (Auto) 0.0, Basophils # (Auto) 0.0, Prothrombin Time 15.6H, INR Comment 1.3, Sodium Level 141, Potassium Level 3.6, Chloride Level 109H, Carbon Dioxide Level 25, Anion Gap 7, Blood Urea Nitrogen 11, Creatinine 0.65, Estimat Glomerular Filtration Rate > 60, BUN/Creatinine Ratio 17, Glucose Level 119H, Calcium Level 8.5, Total Bilirubin 0.4, Aspartate Amino Transf (AST/SGOT) 30, Alanine Aminotransferase (ALT/SGPT) 21, Alkaline Phosphatase 81, Total Protein 6.0L, Albumin 2.5L Microbiology 06/27/16 Blood Culture - Preliminary, Resulted No growth 06/27/16 Influenza Types A,B Antigen (SUKUMAR) - Final, Complete 06/27/16 Urine Culture - Preliminary, Resulted Assessment/Plan Assessment/Plan Assess & Plan/Chief Complaint Right lower lobe pneumonia chest x-ray yesterday showed increase in pneumonia. Hypoxia. Sepsis. Dementia. Patient weak this morning. Patient still a work in progress Clinical Quality Measures DVT/VTE Risk/Contraindication: Risk Factor Score Per Nursin RFS Level Per Nursing on Admit: 4+=Very High Contraindications-Pharm: Other *list below* LO MOORE DO Jun 29, 2016 08:02
[2016-06-29] MEDS: DOCUSATE SODIUM 100 MG (COLACE) CAP PO SCH ×2 (08:27→20:18)
[2016-06-29] MEDS: VANCOMYCIN 500 MG/NS 100 ML IVPB IV SCH ×2 (08:53)
[2016-06-29] MEDS: VITAMIN D3 1,000 UNITS (CHOLECALCIFEROL) TABLET PO SCH (08:55)
[2016-06-29] MEDS: FUROSEMIDE 40 MG (LASIX) TAB PO SCH (08:55)
[2016-06-29] MEDS: lisINopril 10 MG (PRINIVIL) TAB PO SCH (08:55)
[2016-06-29] MEDS: ASCORBIC ACID (VIT C) 500 MG TABLET PO SCH (08:55)
[2016-06-29] MEDS: FOLIC ACID 1 MG TAB PO SCH (08:55)
--- NOTE | 2016-06-29 08:57 | Diagnostic Imaging Report ---
EXAMINATION: Semiupright portable radiograph of the chest. COMPARISON: 06/28/2016. INDICATION: Pneumonia. FINDINGS: The right infrahilar and basilar large infiltrate is again seen and appears slightly worse compared to the previous study. There is minimal left perihilar infiltrate. The heart size is normal. There is no significant effusion. No pneumothorax. IMPRESSION: Slight worsening in the right infrahilar and basilar infiltrate. Minimal left perihilar infiltrate. Dictated by: Dictated on workstation # [id number]
[2016-06-29] MEDS ORDERED: FLUOXETINE HCL 10 MG PO SCH (09:00)
[2016-06-29] MEDS: PIPERACILLIN/TAZOBACTAM 4.5 GM/NS 100 ML IVPB IV SCH ×4 (10:56→20:17)
[2016-06-29] MEDS: FLUoxetine HCL 10 MG (PROzac) CAPSULE/TABLET PO SCH (10:57)
[2016-06-29 12:00] VITALS: BP 186/83
[2016-06-29 17:10] VITALS: BP 158/67
[2016-06-29] MEDS: ACETAMINOPHEN 325 MG TABLET/CAPLET (TYLENOL) PO PRN (18:56)
[2016-06-29] MEDS: D5 1/2 NS 1000 ML IV SOLUTION 1,000 ML IV SCH (19:13)
[2016-06-29 19:15] VITALS: BP 166/76
[2016-06-29] MEDS: ENOXAPARIN 30 MG/0.3 ML (LOVENOX) SYR SC SCH (20:19)
[2016-06-29] MEDS: MELATONIN 3 MG TABLET PO SCH (20:19)
[2016-06-30] VITALS: BP 153/65
[2016-06-30 04:00] VITALS: BP 107/55
[2016-06-30] MEDS: MULTIVIT W/MINERALS TAB (THERAGRAN M) PO SCH (06:45)
[2016-06-30] MEDS: BETHANECHOL 25 MG (URECHOLINE) TAB PO SCH ×4 (06:46→20:22)
[2016-06-30 06:47] LABS: BASOPHILS % (AUTO) 0 % (0-10); EOSINOPHILS # (AUTO) 0.2 10^3/uL (0.0-0.3); EOSINOPHILS % (AUTO) 2 % (0-10); LYMPHOCYTES % (AUTO) 10 % (12-44); MEAN CORPUSCULAR HEMOGLOBIN 27 PG (25-34); MEAN CORPUSCULAR HGB CONC 32 G/DL (32-36); MEAN CORPUSCULAR VOLUME 87 FL (80-99); MEAN PLATELET VOLUME 9.7 FL (7.4-10.4); MONOCYTES # (AUTO) 0.7 X 10^3 (0.0-1.0); MONOCYTES % (AUTO) 7 % (0-12); NEUTROPHILS % (AUTO) 81 % (42-75); PLATELET COUNT 299 10^3/uL (130-400); RED BLOOD COUNT 4.25 10^6/uL (4.35-5.85); RED CELL DISTRIBUTION WIDTH 14.7 % (10.0-14.5); WHITE BLOOD COUNT 9.8 10^3/uL (4.3-11.0)
[2016-06-30 06:54] LABS: ANION GAP 10 MMOL/L (5-14); BLOOD UREA NITROGEN 7 MG/DL (7-18); BUN/CREATININE RATIO 10; CALCIUM 9.3 MG/DL (8.5-10.1); CARBON DIOXIDE 24 MMOL/L (21-32); CHLORIDE 105 MMOL/L (98-107); CREATININE SERUM 0.69 MG/DL (0.60-1.30); GFR ESTIMATED > 60; GLUCOSE 100 MG/DL (70-105); POTASSIUM 3.2 MMOL/L (3.6-5.0); SODIUM 139 MMOL/L (135-145)
[2016-06-30] MEDS ORDERED: TROUGH ORDER-PHARMACY XX NR (07:00)
[2016-06-30] MEDS ORDERED: KCL 20 MEQ TAB (K-DUR) PO NR (07:30)
[2016-06-30] MEDS ORDERED: KCL 10 MEQ TAB (MICRO K) PO NR (07:30)
--- NOTE | 2016-06-30 07:39 | Progress Note (SOAP) ---
Subjective Subjective/Events-last exam pneumonia. Patient still congested. Hypokalemia. Potassium 3.2 replace. Alzheimer's disease. patient work in progress. Objective Exam Vital Signs Date Time Temp Pulse Resp B/P (MAP) Pulse Ox O2 Delivery O2 Flow Rate FiO2 06/30/16 06:19 95 4.00 06/30/16 04:00 95.7 75 20 107/55 93 Nasal Cannula 4.00 06/30/16 00:00 96.3 84 20 153/65 94 Nasal Cannula 4.00 06/29/16 21:15 97.2 06/29/16 20:20 Nasal Cannula 4.00 06/29/16 19:46 2.00 06/29/16 19:15 101.0 111 28 166/76 89 Nasal Cannula 4.00 06/29/16 17:10 101.7 105 24 158/67 85 Nasal Cannula 2.00 06/29/16 12:00 100.6 115 24 186/83 91 Nasal Cannula 2.00 06/29/16 08:00 91 Nasal Cannula 2.00 06/29/16 08:00 98.9 93 24 159/73 95 Nasal Cannula 2.00 I & O 06/30/16 07:00 Intake Total 1130 ml Balance 1130 ml Capillary Refill : Less Than 3 Seconds General Appearance: No Apparent Distress, Thin HEENT: Normal ENT Inspection Neck: Normal Inspection Respiratory: No Accessory Muscle Use, No Respiratory Distress, Other ( congestion with coughing) Cardiovascular: Regular Rate, Rhythm, No Murmur Results Lab Laboratory Tests 06/30/16 06:25 Laboratory Tests 06/29/16 22:14: Glucometer 117H 06/30/16 06:25: White Blood Count 9.8, Red Blood Count 4.25L, Hemoglobin 11.6, Hematocrit 37, Mean Corpuscular Volume 87, Mean Corpuscular Hemoglobin 27, Mean Corpuscular Hemoglobin Concent 32, Red Cell Distribution Width 14.7H, Platelet Count 299, Mean Platelet Volume 9.7, Neutrophils (%) (Auto) 81H, Lymphocytes (%) (Auto) 10L , Monocytes (%) (Auto) 7, Eosinophils (%) (Auto) 2, Basophils (%) (Auto) 0, Neutrophils # (Auto) 8.0H, Lymphocytes # (Auto) 1.0, Monocytes # (Auto) 0.7, Eosinophils # (Auto) 0.2, Basophils # (Auto) 0.0, Sodium Level 139, Potassium Level 3.2L, Chloride Level 105, Carbon Dioxide Level 24, Anion Gap 10, Blood Urea Nitrogen 7, Creatinine 0.69, Estimat Glomerular Filtration Rate > 60, BUN/ Creatinine Ratio 10, Glucose Level 100, Calcium Level 9.3, Vancomycin Level Trough 7.7L Microbiology 06/27/16 Blood Culture - Preliminary, Resulted No growth 06/27/16 Influenza Types A,B Antigen (SUKUMAR) - Final, Complete 06/27/16 Urine Culture - Final, Complete Assessment/Plan Assessment/Plan Assess & Plan/Chief Complaint Right lower lobe pneumonia chest x-ray yesterday showed increase in pneumonia. Hypoxia. Sepsis. Dementia. Patient weak this morning. Patient still a work in progress. . 06/30/16. Pneumonia. Hypoxia. Sepsis. Patient still has congestion. Clinical Quality Measures DVT/VTE Risk/Contraindication: Risk Factor Score Per Nursin RFS Level Per Nursing on Admit: 4+=Very High Contraindications-Pharm: Other *list below* LO MOORE DO Jun 30, 2016 07:39
[2016-06-30] MEDS ORDERED: VANCOMYCIN 1 GM/NS 250 ML IVPB IV SCH ×2 (08:00)
[2016-06-30 08:30] VITALS: BP 122/59
[2016-06-30] MEDS: RT-ALBUTEROL SULF 2.5 MG/3 ML PRE-MIX VIAL IH SCH ×4 (09:16→22:32)
--- NOTE | 2016-06-30 09:19 | Diagnostic Imaging Report ---
INDICATION: Pneumonia. Comparison study: Chest from 06/29/2016. FINDINGS: A frontal view of the chest demonstrates resolution of the mild infiltrate in the left midlung. Infiltrates in the right lower lung have slightly improved. There is minimal infiltrate in the left base. Heart size and vascularity are normal. No pleural effusions are present. IMPRESSION: There are improving pulmonary infiltrates. Dictated by: Dictated on workstation # [id number]
[2016-06-30] MEDS: FUROSEMIDE 40 MG (LASIX) TAB PO SCH (09:51)
[2016-06-30] MEDS: lisINopril 10 MG (PRINIVIL) TAB PO SCH (09:51)
[2016-06-30] MEDS: DOCUSATE SODIUM 100 MG (COLACE) CAP PO SCH ×2 (09:51→20:21)
[2016-06-30] MEDS: FOLIC ACID 1 MG TAB PO SCH (09:51)
[2016-06-30] MEDS: VITAMIN D3 1,000 UNITS (CHOLECALCIFEROL) TABLET PO SCH (09:51)
[2016-06-30] MEDS: FLUoxetine HCL 10 MG (PROzac) CAPSULE/TABLET PO SCH (09:52)
[2016-06-30] MEDS: ASCORBIC ACID (VIT C) 500 MG TABLET PO SCH (09:52)
[2016-06-30] MEDS: PIPERACILLIN/TAZOBACTAM 4.5 GM/NS 100 ML IVPB IV SCH ×4 (09:52→20:19)
[2016-06-30] MEDS: ACETAMINOPHEN 325 MG TABLET/CAPLET (TYLENOL) PO PRN (09:55)
[2016-06-30] MEDS ORDERED: RT-ALBUTEROL SULF 2.5 MG/3 ML PRE-MIX VIAL IH PRN (10:00)
[2016-06-30] MEDS: D5 1/2 NS 1000 ML IV SOLUTION 1,000 ML IV SCH (10:14)
[2016-06-30 12:00] VITALS: BP 117/59
[2016-06-30 16:25] VITALS: BP 130/63
[2016-06-30 20:15] VITALS: BP 127/60
[2016-06-30] MEDS: MELATONIN 3 MG TABLET PO SCH (20:19)
[2016-06-30] MEDS: ENOXAPARIN 30 MG/0.3 ML (LOVENOX) SYR SC SCH (20:19)
[2016-07-01 00:45] VITALS: BP 133/63
[2016-07-01] MEDS: RT-ALBUTEROL SULF 2.5 MG/3 ML PRE-MIX VIAL IH SCH ×4 (02:37→11:01)
[2016-07-01 04:45] VITALS: BP 135/60
[2016-07-01] MEDS: BETHANECHOL 25 MG (URECHOLINE) TAB PO SCH ×2 (05:21→10:29)
[2016-07-01] MEDS: D5 1/2 NS 1000 ML IV SOLUTION 1,000 ML IV SCH (05:21)
[2016-07-01] MEDS: MULTIVIT W/MINERALS TAB (THERAGRAN M) PO SCH (05:21)
[2016-07-01 06:16] LABS: BASOPHILS % (AUTO) 0 % (0-10); EOSINOPHILS # (AUTO) 0.1 10^3/uL (0.0-0.3); EOSINOPHILS % (AUTO) 1 % (0-10); LYMPHOCYTES % (AUTO) 11 % (12-44); MEAN CORPUSCULAR HEMOGLOBIN 27 PG (25-34); MEAN CORPUSCULAR HGB CONC 31 G/DL (32-36); MEAN CORPUSCULAR VOLUME 86 FL (80-99); MEAN PLATELET VOLUME 9.7 FL (7.4-10.4); MONOCYTES # (AUTO) 0.6 X 10^3 (0.0-1.0); MONOCYTES % (AUTO) 7 % (0-12); NEUTROPHILS % (AUTO) 81 % (42-75); PLATELET COUNT 296 10^3/uL (130-400); RED BLOOD COUNT 3.42 10^6/uL (4.35-5.85); RED CELL DISTRIBUTION WIDTH 14.5 % (10.0-14.5); WHITE BLOOD COUNT 8.7 10^3/uL (4.3-11.0)
[2016-07-01 06:53] LABS: ANION GAP 9 MMOL/L (5-14); BLOOD UREA NITROGEN 6 MG/DL (7-18); BUN/CREATININE RATIO 9; CALCIUM 8.5 MG/DL (8.5-10.1); CARBON DIOXIDE 26 MMOL/L (21-32); CHLORIDE 105 MMOL/L (98-107); CREATININE SERUM 0.69 MG/DL (0.60-1.30); GFR ESTIMATED > 60; GLUCOSE 125 MG/DL (70-105); POTASSIUM 3.2 MMOL/L (3.6-5.0); SODIUM 140 MMOL/L (135-145)
[2016-07-01] MEDS: lisINopril 10 MG (PRINIVIL) TAB PO SCH (07:35)
[2016-07-01] MEDS: PIPERACILLIN/TAZOBACTAM 4.5 GM/NS 100 ML IVPB IV SCH ×2 (07:35)
[2016-07-01] MEDS: ASCORBIC ACID (VIT C) 500 MG TABLET PO SCH (07:35)
[2016-07-01] MEDS: ACETAMINOPHEN 325 MG TABLET/CAPLET (TYLENOL) PO PRN (07:35)
[2016-07-01] MEDS: FUROSEMIDE 40 MG (LASIX) TAB PO SCH (07:36)
[2016-07-01] MEDS: DOCUSATE SODIUM 100 MG (COLACE) CAP PO SCH (07:36)
[2016-07-01] MEDS: FOLIC ACID 1 MG TAB PO SCH (07:36)
[2016-07-01] MEDS: FLUoxetine HCL 10 MG (PROzac) CAPSULE/TABLET PO SCH (07:36)
[2016-07-01] MEDS: VITAMIN D3 1,000 UNITS (CHOLECALCIFEROL) TABLET PO SCH (07:36)
--- NOTE | 2016-07-01 07:43 | Diagnostic Imaging Report ---
Portable upright radiograph of the chest. INDICATION: Right lower lobe infiltrate. FINDINGS: There is a right lower lobe infiltrate similar to 06/30/2016. The left lung demonstrate mild basilar infiltrates or atelectasis. There is a tiny left pleural effusion. The heart size is normal. No pneumothorax. The mediastinum and surendra appear unremarkable. IMPRESSION: Stable right lower lobe infiltrate. Dictated by: Dictated on workstation # [id number]
[2016-07-01 08:00] VITALS: BP 114/62
--- NOTE | 2016-07-01 08:13 | Progress Note (SOAP) ---
Subjective Subjective/Events-last exam pneumonia. Hypoxia. Patient looks better this morning. Chest x-ray stable. During the evening patient had a be put up to 5 L of nasal oxygen. The put in a PICC line. Consult swing bed Objective Exam Vital Signs Date Time Temp Pulse Resp B/P (MAP) Pulse Ox O2 Delivery O2 Flow Rate FiO2 07/01/16 06:52 93 5.00 07/01/16 04:45 98.3 89 18 135/60 93 Nasal Cannula 5.00 07/01/16 02:37 92 5.00 07/01/16 00:45 99.7 98 18 133/63 92 Nasal Cannula 5.00 06/30/16 22:32 83 4.00 06/30/16 20:20 Nasal Cannula 4.00 06/30/16 20:15 99.2 91 24 127/60 94 Nasal Cannula 5.00 06/30/16 18:45 91 4.00 06/30/16 16:25 98.6 87 20 130/63 96 Nasal Cannula 4.00 06/30/16 13:24 97 6.00 06/30/16 12:00 97.0 89 18 117/59 92 Nasal Cannula 5.00 06/30/16 09:16 85 4.00 06/30/16 08:30 96.8 81 18 122/59 91 Nasal Cannula 4.00 I & O 07/01/16 07:00 Intake Total 1940 ml Balance 1940 ml Capillary Refill : Less Than 3 Seconds General Appearance: No Apparent Distress, Thin Neck: Full Range of Motion, Non Tender Respiratory: Chest Non Tender, No Accessory Muscle Use, No Respiratory Distress Cardiovascular: Regular Rate, Rhythm, No Murmur Gastrointestinal: non tender, soft Results Lab Laboratory Tests 07/01/16 05:30 Laboratory Tests 07/01/16 05:30: White Blood Count 8.7, Red Blood Count 3.42L, Hemoglobin 9.2#L, Hematocrit 29L, Mean Corpuscular Volume 86, Mean Corpuscular Hemoglobin 27, Mean Corpuscular Hemoglobin Concent 31L, Red Cell Distribution Width 14.5, Platelet Count 296, Mean Platelet Volume 9.7, Neutrophils (%) (Auto) 81H, Lymphocytes (%) (Auto) 11L , Monocytes (%) (Auto) 7, Eosinophils (%) (Auto) 1, Basophils (%) (Auto) 0, Neutrophils # (Auto) 7.0, Lymphocytes # (Auto) 1.0, Monocytes # (Auto) 0.6, Eosinophils # (Auto) 0.1, Basophils # (Auto) 0.0, Sodium Level 140, Potassium Level 3.2L, Chloride Level 105, Carbon Dioxide Level 26, Anion Gap 9, Blood Urea Nitrogen 6L, Creatinine 0.69, Estimat Glomerular Filtration Rate > 60, BUN/ Creatinine Ratio 9, Glucose Level 125H, Calcium Level 8.5 Microbiology 06/27/16 Blood Culture - Preliminary, Resulted No growth 06/27/16 Influenza Types A,B Antigen (SUKUMAR) - Final, Complete 06/27/16 Urine Culture - Final, Complete Assessment/Plan Assessment/Plan Assess & Plan/Chief Complaint Right lower lobe pneumonia chest x-ray yesterday showed increase in pneumonia. Hypoxia. Sepsis. Dementia. Patient weak this morning. Patient still a work in progress. . 06/30/16. Pneumonia. Hypoxia. Sepsis. Patient still has congestion.. . 06/3116. Pneumonia. Dementia. Hypoxia. Patient looks better this morning. Nasal oxygen and had go up to 5 L last night. Chest x-ray stable. Swing bed evaluation Clinical Quality Measures DVT/VTE Risk/Contraindication: Risk Factor Score Per Nursin RFS Level Per Nursing on Admit: 4+=Very High Contraindications-Pharm: Other *list below* LO MOORE DO Jul 01, 2016 08:13
[2016-07-01] MEDS ORDERED: KCL 20 MEQ TAB (K-DUR) PO NR (08:20)
--- NOTE | 2016-07-01 08:28 | Pulmonary Progress Note ---
Exam Exam Vital Signs Date Time Temp Pulse Resp B/P (MAP) Pulse Ox O2 Delivery O2 Flow Rate FiO2 07/01/16 06:52 93 5.00 07/01/16 04:45 98.3 89 18 135/60 93 Nasal Cannula 5.00 07/01/16 02:37 92 5.00 07/01/16 00:45 99.7 98 18 133/63 92 Nasal Cannula 5.00 06/30/16 22:32 83 4.00 06/30/16 20:20 Nasal Cannula 4.00 06/30/16 20:15 99.2 91 24 127/60 94 Nasal Cannula 5.00 06/30/16 18:45 91 4.00 06/30/16 16:25 98.6 87 20 130/63 96 Nasal Cannula 4.00 06/30/16 13:24 97 6.00 06/30/16 12:00 97.0 89 18 117/59 92 Nasal Cannula 5.00 06/30/16 09:16 85 4.00 06/30/16 08:30 96.8 81 18 122/59 91 Nasal Cannula 4.00 I & O 07/01/16 07:00 Intake Total 1940 ml Balance 1940 ml General Appearance: No Apparent Distress, Thin HEENT: Normal ENT Inspection Neck: Full Range of Motion, Non Tender Respiratory: Chest Non Tender, No Accessory Muscle Use, No Respiratory Distress Cardiovascular: Regular Rate, Rhythm, No Murmur Capillary Refill: Less Than 3 Seconds Gastrointestinal: non tender, soft Extremity: Normal Capillary Refill, Non Tender, No Pedal Edema Neurologic/Psychiatric: No Motor/Sensory Deficits (MOVES ALL EXTREMITIES), Other (MENTATION ABOVE. PT IS NOT TALKING OR FOLLOWING ANY COMMANDS OTHER THAN EYE OPENING TO VOICE. ) Skin: Normal Color, Warm/Dry, Other (DRESSING TO LEFT LOWER LEG IS CLEAN/ DRY / INTACT) Results Lab Laboratory Tests 06/30/16 06:25 07/01/16 05:30 Assessment/Plan Assessment/Plan HCAP with hypoxia and sepsis -Continue zosyn -CXR looks stable -await wright cultures Dementia Dehydration -IVF Clinical Quality Measures DVT/VTE Risk/Contraindication: Risk Factor Score Per Nursin RFS Level Per Nursing on Admit: 4+=Very High Contraindications-Pharm: Other *list below* HANSA CAR DO Jul 01, 2016 08:28
--- NOTE | 2016-07-05 08:32 | Discharge Summary ---
Diagnosis/Chief Complaint Date of Admission Jun 27, 2016 at 21:00 Date of Discharge Jul 01, 2016 at 13:10 Admission Diagnosis Admission Diagnosis right lower lobe pneumonia. Hypoxia. Sepsis. Dementia Discharge Diagnosis acute respiratory failure with hypoxia. Pneumonia. Alzheimer's disease. Coronary artery disease. Bipolar disorder. Dehydration. DO NOT RESUSCITATE. Dementia. Hypokalemia. Reason Hospital Visit patient has Alzheimer's and unable to give a history area Patient states she 15 years old. Patient does not know where she is at now. Patient resident of a group home. According to them patient running an elevated temperature of over 102. Pulse ox went down to the 70s. Patient weak. Patient transferred to emergency room showing a right lower lobe pneumonia infection. Patient admitted Discharge Summary Consultations consulted by pulmonology Discharge Physical Examination Allergies: Coded Allergies: No Known Drug Allergies (Unverified , 10/20/14) Vitals & I&Os Vital Signs Date Time Temp Pulse Resp B/P (MAP) Pulse Ox O2 Delivery O2 Flow Rate FiO2 07/01/16 11:02 95 5.00 07/01/16 08:00 Nasal Cannula 07/01/16 08:00 97.5 87 22 114/62 Hospital Course Labs (last 24 hrs) Laboratory Tests 06/27/16 20:28: White Blood Count 14.6H, Red Blood Count 4.58, Hemoglobin 12.5, Hematocrit 40, Mean Corpuscular Volume 87, Mean Corpuscular Hemoglobin 27, Mean Corpuscular Hemoglobin Concent 31L, Red Cell Distribution Width 15.2H, Platelet Count 306, Mean Platelet Volume 10.0, Neutrophils (%) (Auto) 87H, Lymphocytes (%) (Auto) 6L , Monocytes (%) (Auto) 7, Eosinophils (%) (Auto) 0, Basophils (%) (Auto) 0, Neutrophils # (Auto) 12.7H, Lymphocytes # (Auto) 0.8L, Monocytes # (Auto) 1.0, Eosinophils # (Auto) 0.0, Basophils # (Auto) 0.0, Neutrophils % (Manual) 72, Lymphocytes % (Manual) 10, Monocytes % (Manual) 5, Eosinophils % (Manual) 0, Basophils % (Manual) 0, Band Neutrophils 13, Blood Morphology Comment NORMAL, Prothrombin Time 15.4H, INR Comment 1.3, Activated Partial Thromboplast Time 40H , Sodium Level 144, Potassium Level 4.0, Chloride Level 106, Carbon Dioxide Level 25, Anion Gap 13, Blood Urea Nitrogen 37H, Creatinine 0.99, Estimat Glomerular Filtration Rate 54, BUN/Creatinine Ratio 37, Glucose Level 132H, Lactic Acid Level 0.90, Calcium Level 9.8, Magnesium Level 2.1, Total Bilirubin 0.3, Aspartate Amino Transf (AST/SGOT) 30, Alanine Aminotransferase (ALT/SGPT) 21, Alkaline Phosphatase 101, Total Creatine Kinase 24L, Creatine Kinase MB 0.9 , Troponin I < 0.30, B-Type Natriuretic Peptide 48.2, Total Protein 8.0, Albumin 3.4 06/27/16 21:00: Blood Gas Puncture Site RIGHT RADIAL, Blood Gas Patient Temperature 99.9, Arterial Blood pH 7.33*L, Arterial Blood Partial Pressure CO2 56H, Arterial Blood Partial Pressure O2 51L, Arterial Blood HCO3 28H, Arterial Blood Total CO2 29.6, Arterial Blood Oxygen Saturation 81L, Arterial Blood Base Excess 2.6H , Ken Test POSITIVE, Blood Gas Ventilator Setting NO, Blood Gas Inspired Oxygen 6L 06/27/16 23:09: Urine Color YELLOW, Urine Clarity VERY CLOUDYH, Urine pH 5, Urine Specific Tillson 1.015L, Urine Protein 3+H, Urine Glucose (UA) NEGATIVE, Urine Ketones NEGATIVE, Urine Nitrite NEGATIVE, Urine Bilirubin NEGATIVE, Urine Urobilinogen NORMAL, Urine Leukocyte Esterase 3+H, Urine RBC (Auto) 5+H, Urine RBC >100H, Urine WBC 10-25H, Urine Squamous Epithelial Cells 2-5, Urine Crystals NONE, Urine Bacteria FEWH, Urine Casts NONE, Urine Mucus NEGATIVE, Urine Culture Indicated YES 06/28/16 06:00: White Blood Count 13.8H, Red Blood Count 3.83L, Hemoglobin 10.3L, Hematocrit 34L , Mean Corpuscular Volume 89, Mean Corpuscular Hemoglobin 27, Mean Corpuscular Hemoglobin Concent 30L, Red Cell Distribution Width 14.9H, Platelet Count 270, Mean Platelet Volume 10.0, Neutrophils (%) (Auto) 87H, Lymphocytes (%) (Auto) 6L , Monocytes (%) (Auto) 7, Eosinophils (%) (Auto) 0, Basophils (%) (Auto) 0, Neutrophils # (Auto) 12.0H, Lymphocytes # (Auto) 0.9L, Monocytes # (Auto) 1.0, Eosinophils # (Auto) 0.0, Basophils # (Auto) 0.0, Prothrombin Time 15.4H, INR Comment 1.3, Sodium Level 145, Potassium Level 3.9, Chloride Level 111H, Carbon Dioxide Level 26, Anion Gap 8, Blood Urea Nitrogen 26H, Creatinine 0.76, Estimat Glomerular Filtration Rate > 60, BUN/Creatinine Ratio 34, Glucose Level 141H, Calcium Level 8.8, Total Bilirubin 0.2, Aspartate Amino Transf (AST/SGOT) 22, Alanine Aminotransferase (ALT/SGPT) 18, Alkaline Phosphatase 83, Total Protein 6.6, Albumin 2.8L 06/29/16 05:58: White Blood Count 11.5H, Red Blood Count 3.57L, Hemoglobin 9.7L, Hematocrit 31L , Mean Corpuscular Volume 88, Mean Corpuscular Hemoglobin 27, Mean Corpuscular Hemoglobin Concent 31L, Red Cell Distribution Width 14.8H, Platelet Count 265, Mean Platelet Volume 9.7, Neutrophils (%) (Auto) 83H, Lymphocytes (%) (Auto) 9L , Monocytes (%) (Auto) 8, Eosinophils (%) (Auto) 0, Basophils (%) (Auto) 0, Neutrophils # (Auto) 9.5H, Lymphocytes # (Auto) 1.0, Monocytes # (Auto) 0.9, Eosinophils # (Auto) 0.0, Basophils # (Auto) 0.0, Prothrombin Time 15.6H, INR Comment 1.3, Sodium Level 141, Potassium Level 3.6, Chloride Level 109H, Carbon Dioxide Level 25, Anion Gap 7, Blood Urea Nitrogen 11, Creatinine 0.65, Estimat Glomerular Filtration Rate > 60, BUN/Creatinine Ratio 17, Glucose Level 119H, Calcium Level 8.5, Total Bilirubin 0.4, Aspartate Amino Transf (AST/SGOT) 30, Alanine Aminotransferase (ALT/SGPT) 21, Alkaline Phosphatase 81, Total Protein 6.0L, Albumin 2.5L 06/29/16 22:14: Glucometer 117H 06/30/16 06:25: White Blood Count 9.8, Red Blood Count 4.25L, Hemoglobin 11.6, Hematocrit 37, Mean Corpuscular Volume 87, Mean Corpuscular Hemoglobin 27, Mean Corpuscular Hemoglobin Concent 32, Red Cell Distribution Width 14.7H, Platelet Count 299, Mean Platelet Volume 9.7, Neutrophils (%) (Auto) 81H, Lymphocytes (%) (Auto) 10L , Monocytes (%) (Auto) 7, Eosinophils (%) (Auto) 2, Basophils (%) (Auto) 0, Neutrophils # (Auto) 8.0H, Lymphocytes # (Auto) 1.0, Monocytes # (Auto) 0.7, Eosinophils # (Auto) 0.2, Basophils # (Auto) 0.0, Sodium Level 139, Potassium Level 3.2L, Chloride Level 105, Carbon Dioxide Level 24, Anion Gap 10, Blood Urea Nitrogen 7, Creatinine 0.69, Estimat Glomerular Filtration Rate > 60, BUN/ Creatinine Ratio 10, Glucose Level 100, Calcium Level 9.3, Vancomycin Level Trough 7.7L 07/01/16 05:30: White Blood Count 8.7, Red Blood Count 3.42L, Hemoglobin 9.2#L, Hematocrit 29L, Mean Corpuscular Volume 86, Mean Corpuscular Hemoglobin 27, Mean Corpuscular Hemoglobin Concent 31L, Red Cell Distribution Width 14.5, Platelet Count 296, Mean Platelet Volume 9.7, Neutrophils (%) (Auto) 81H, Lymphocytes (%) (Auto) 11L , Monocytes (%) (Auto) 7, Eosinophils (%) (Auto) 1, Basophils (%) (Auto) 0, Neutrophils # (Auto) 7.0, Lymphocytes # (Auto) 1.0, Monocytes # (Auto) 0.6, Eosinophils # (Auto) 0.1, Basophils # (Auto) 0.0, Sodium Level 140, Potassium Level 3.2L, Chloride Level 105, Carbon Dioxide Level 26, Anion Gap 9, Blood Urea Nitrogen 6L, Creatinine 0.69, Estimat Glomerular Filtration Rate > 60, BUN/ Creatinine Ratio 9, Glucose Level 125H, Calcium Level 8.5 Microbiology 06/27/16 Blood Culture - Final, Complete No growth 06/30/16 C. difficile GDH Antigen & Toxins - Final, Complete 06/27/16 Influenza Types A,B Antigen (SUKUMAR) - Final, Complete 06/27/16 Urine Culture - Final, Complete Laboratory Tests 06/27/16 20:28 06/28/16 06:00 06/29/16 05:58 06/30/16 06:25 07/01/16 05:30 Pending Labs Microbiology Date/Time Source Procedure Growth Status 06/27/16 20:37 Peripheral Rt Ac Blood Culture - Final No growth Complete 06/27/16 20:28 Peripheral Left Forearm Blood Culture - Preliminary Gram Positive Dale Resulted 06/30/16 20:00 Stool C. difficile GDH Antigen & Toxins - Final Complete 06/27/16 20:11 Nasopharynx Influenza Types A,B Antigen (SUKUMAR) - Final Complete 06/27/16 23:09 Urine Clean Catch Urine Culture - Final Complete Laboratory Tests 06/27/16 20:28: White Blood Count 14.6, Red Blood Count 4.58, Hemoglobin 12.5, Hematocrit 40, Mean Corpuscular Volume 87, Mean Corpuscular Hemoglobin 27, Mean Corpuscular Hemoglobin Concent 31, Red Cell Distribution Width 15.2, Platelet Count 306, Mean Platelet Volume 10.0, Neutrophils (%) (Auto) 87, Lymphocytes (%) (Auto) 6, Monocytes (%) (Auto) 7, Eosinophils (%) (Auto) 0, Basophils (%) (Auto) 0, Neutrophils # (Auto) 12.7, Lymphocytes # (Auto) 0.8, Monocytes # (Auto) 1.0, Eosinophils # (Auto) 0.0, Basophils # (Auto) 0.0, Neutrophils % (Manual) 72, Lymphocytes % (Manual) 10, Monocytes % (Manual) 5, Eosinophils % (Manual) 0, Basophils % (Manual) 0, Band Neutrophils 13, Blood Morphology Comment NORMAL, Prothrombin Time 15.4, INR Comment 1.3, Activated Partial Thromboplast Time 40, Sodium Level 144, Potassium Level 4.0, Chloride Level 106, Carbon Dioxide Level 25, Anion Gap 13, Blood Urea Nitrogen 37, Creatinine 0.99, Estimat Glomerular Filtration Rate 54, BUN/Creatinine Ratio 37, Glucose Level 132, Lactic Acid Level 0.90, Calcium Level 9.8, Magnesium Level 2.1, Total Bilirubin 0.3, Aspartate Amino Transf (AST/SGOT) 30, Alanine Aminotransferase (ALT/SGPT) 21, Alkaline Phosphatase 101, Total Creatine Kinase 24, Creatine Kinase MB 0.9, Troponin I < 0.30, B-Type Natriuretic Peptide 48.2, Total Protein 8.0, Albumin 3.4 06/27/16 21:00: Blood Gas Puncture Site RIGHT RADIAL, Blood Gas Patient Temperature 99.9, Arterial Blood pH 7.33, Arterial Blood Partial Pressure CO2 56, Arterial Blood Partial Pressure O2 51, Arterial Blood HCO3 28, Arterial Blood Total CO2 29.6, Arterial Blood Oxygen Saturation 81, Arterial Blood Base Excess 2.6, Ken Test POSITIVE, Blood Gas Ventilator Setting NO, Blood Gas Inspired Oxygen 6L 06/27/16 23:09: Urine Color YELLOW, Urine Clarity VERY CLOUDY, Urine pH 5, Urine Specific Tillson 1.015, Urine Protein 3+, Urine Glucose (UA) NEGATIVE, Urine Ketones NEGATIVE, Urine Nitrite NEGATIVE, Urine Bilirubin NEGATIVE, Urine Urobilinogen NORMAL, Urine Leukocyte Esterase 3+, Urine RBC (Auto) 5+, Urine RBC >100, Urine WBC 10-25, Urine Squamous Epithelial Cells 2-5, Urine Crystals NONE, Urine Bacteria FEW, Urine Casts NONE, Urine Mucus NEGATIVE, Urine Culture Indicated YES 06/28/16 06:00: White Blood Count 13.8, Red Blood Count 3.83, Hemoglobin 10.3, Hematocrit 34, Mean Corpuscular Volume 89, Mean Corpuscular Hemoglobin 27, Mean Corpuscular Hemoglobin Concent 30, Red Cell Distribution Width 14.9, Platelet Count 270, Mean Platelet Volume 10.0, Neutrophils (%) (Auto) 87, Lymphocytes (%) (Auto) 6, Monocytes (%) (Auto) 7, Eosinophils (%) (Auto) 0, Basophils (%) (Auto) 0, Neutrophils # (Auto) 12.0, Lymphocytes # (Auto) 0.9, Monocytes # (Auto) 1.0, Eosinophils # (Auto) 0.0, Basophils # (Auto) 0.0, Prothrombin Time 15.4, INR Comment 1.3, Sodium Level 145, Potassium Level 3.9, Chloride Level 111, Carbon Dioxide Level 26, Anion Gap 8, Blood Urea Nitrogen 26, Creatinine 0.76, Estimat Glomerular Filtration Rate > 60, BUN/Creatinine Ratio 34, Glucose Level 141, Calcium Level 8.8, Total Bilirubin 0.2, Aspartate Amino Transf (AST/SGOT) 22, Alanine Aminotransferase (ALT/SGPT) 18, Alkaline Phosphatase 83, Total Protein 6.6, Albumin 2.8 06/29/16 05:58: White Blood Count 11.5, Red Blood Count 3.57, Hemoglobin 9.7, Hematocrit 31, Mean Corpuscular Volume 88, Mean Corpuscular Hemoglobin 27, Mean Corpuscular Hemoglobin Concent 31, Red Cell Distribution Width 14.8, Platelet Count 265, Mean Platelet Volume 9.7, Neutrophils (%) (Auto) 83, Lymphocytes (%) (Auto) 9, Monocytes (%) (Auto) 8, Eosinophils (%) (Auto) 0, Basophils (%) (Auto) 0, Neutrophils # (Auto) 9.5, Lymphocytes # (Auto) 1.0, Monocytes # (Auto) 0.9, Eosinophils # (Auto) 0.0, Basophils # (Auto) 0.0, Prothrombin Time 15.6, INR Comment 1.3, Sodium Level 141, Potassium Level 3.6, Chloride Level 109, Carbon Dioxide Level 25, Anion Gap 7, Blood Urea Nitrogen 11, Creatinine 0.65, Estimat Glomerular Filtration Rate > 60, BUN/Creatinine Ratio 17, Glucose Level 119, Calcium Level 8.5, Total Bilirubin 0.4, Aspartate Amino Transf (AST/SGOT) 30, Alanine Aminotransferase (ALT/SGPT) 21, Alkaline Phosphatase 81, Total Protein 6.0, Albumin 2.5 06/29/16 22:14: Glucometer 117 06/30/16 06:25: White Blood Count 9.8, Red Blood Count 4.25, Hemoglobin 11.6, Hematocrit 37, Mean Corpuscular Volume 87, Mean Corpuscular Hemoglobin 27, Mean Corpuscular Hemoglobin Concent 32, Red Cell Distribution Width 14.7, Platelet Count 299, Mean Platelet Volume 9.7, Neutrophils (%) (Auto) 81, Lymphocytes (%) (Auto) 10, Monocytes (%) (Auto) 7, Eosinophils (%) (Auto) 2, Basophils (%) (Auto) 0, Neutrophils # (Auto) 8.0, Lymphocytes # (Auto) 1.0, Monocytes # (Auto) 0.7, Eosinophils # (Auto) 0.2, Basophils # (Auto) 0.0, Sodium Level 139, Potassium Level 3.2, Chloride Level 105, Carbon Dioxide Level 24, Anion Gap 10, Blood Urea Nitrogen 7, Creatinine 0.69, Estimat Glomerular Filtration Rate > 60, BUN/ Creatinine Ratio 10, Glucose Level 100, Calcium Level 9.3, Vancomycin Level Trough 7.7 07/01/16 05:30: White Blood Count 8.7, Red Blood Count 3.42, Hemoglobin 9.2, Hematocrit 29, Mean Corpuscular Volume 86, Mean Corpuscular Hemoglobin 27, Mean Corpuscular Hemoglobin Concent 31, Red Cell Distribution Width 14.5, Platelet Count 296, Mean Platelet Volume 9.7, Neutrophils (%) (Auto) 81, Lymphocytes (%) (Auto) 11, Monocytes (%) (Auto) 7, Eosinophils (%) (Auto) 1, Basophils (%) (Auto) 0, Neutrophils # (Auto) 7.0, Lymphocytes # (Auto) 1.0, Monocytes # (Auto) 0.6, Eosinophils # (Auto) 0.1, Basophils # (Auto) 0.0, Sodium Level 140, Potassium Level 3.2, Chloride Level 105, Carbon Dioxide Level 26, Anion Gap 9, Blood Urea Nitrogen 6, Creatinine 0.69, Estimat Glomerular Filtration Rate > 60, BUN/ Creatinine Ratio 9, Glucose Level 125, Calcium Level 8.5 Radiology Reviewed chest x-ray on admission shows right lower lobe pneumonia. Chest x-ray later may show in the left lung also. Discussion & Recommendations patient traveled to swing bed more IV antibiotics Discharge Home Medications: Active Scripts Active Reported Tylenol (Acetaminophen) 325 Mg Tablet 650 Mg PO Q4H PRN TAKES 2 (325MG) TABLETS Multivitamins with Minerals (Multivitamin with Minerals) 1 Each Tablet 1 Tab PO DAILY Fluoxetine HCl 10 Mg Tablet 10 Mg PO DAILY Nebo 5/325 Tablet (Hydrocodone Bit/Acetaminophen) 1 Tab Tablet 1 Tab PO BID Vitamin C 500 Mg (Ascorbic Acid) 500 Mg Tablet 500 Mg PO DAILY Bethanechol Chloride 25 Mg Tablet 25 Mg PO ACHS Mirtazapine 15 Mg (Mirtazapine) 15 Mg Tablet 15 Mg PO HS Miralax 17 Gm Packet (Polyethylene Glycol) 17 Gm Pack 17 Gm PO DAILY PRN Milk Of Magnesia (Magnesium Hydroxide) 400 Mg/5 Ml Oral.susp 30 Ml PO DAILY PRN Melatonin 3 Mg Tablet (Pyridoxine/Melatonin) 1 Tab Tablet 6 Mg PO HS TAKES 2 (3MG) TABLETS Furosemide 40 Mg Tablet 40 Mg PO DAILY Folic Acid 1 Mg Tablet 1 Mg PO DAILY Colace (Docusate Sodium) 100 Mg Cap 100 Mg PO BID Vitamin D3 (Cholecalciferol) 1,000 Unit Capsule 2,000 Unit PO DAILY TAKES 2 (1000UNIT) CAPSULES Instructions to patient/family Please see electonic discharge instructions given to patient. Clinical Quality Measures DVT/VTE Risk/Contraindication: Risk Factor Score Per Nursin RFS Level Per Nursing on Admit: 4+=Very High Contraindications-Pharm: Other *list below* LO MOORE DO Jul 05, 2016 08:32
--- OUTSIDE RECORDS SUMMARY | 2016-07-12 19:14 | XMS REPORT ---
Author Author [facility] Medical Staff Organization 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 Encounters No authorized problems tracked for encounter diagnoses are available for this visit. Medications Home Medications Medication Directions Started Status Source Aspirin Childrens 81 mg chewable tablet 1 tablet oral -Daily Current Patient medication list Exelon Patch 9.5 mg/24 hr transdermal 1 patch TD -Daily Current Patient medication list folic acid 1 mg tablet 1 tablet oral -Daily Current Patient medication list Lasix 40 mg tablet 1 tablet oral -Daily Current Patient medication list Miralax 17 gram oral powder packet 17 gm oral Every morning Current Patient medication list Vitamin C 100 mg chewable tablet 1 tablet oral -Daily Current Patient medication list Vitamin D3 2,000 unit tablet 1 tablet oral -Daily Current Patient medication list Depakote Sprinkles 125 mg capsule 2 tablet oral 2 times per day Current Patient medication list docusate sodium 100 mg capsule 1 tablet oral 2 times per day Current Patient medication list multivitamin tablet 1 tablet oral Every morning Current Patient medication list Namenda XR 7 mg capsule sprinkle,ER 24hr 1 tablet oral Every morning Current Patient medication list QUEtiapine 25 mg tablet 1 tablet oral At bed time Current Patient medication list traZODone 50 mg tablet 1 tablet oral At bed time Current Patient medication list Milk of Magnesia 400 mg/5 mL oral suspension 30 ml oral As needed Current Patient medication list traZODone 50 mg tablet 1 tablet oral As Needed At Bedtime Current Patient medication list Tylenol 325 mg tablet 2 tablet oral As Needed Every 4 Hours Current Patient medication list Ultram 50 mg tablet 1 tablet oral As Needed Every 8 Hours Current Patient medication list albuterol sulfate 2.5 mg/3 mL (0.083 %) solution for nebulization 1 applicator inhl Every 4 hours Current Patient medication list DuoNeb 0.5 mg-3 mg(2.5 mg base)/3 mL solution for nebulization 1 applicator inhl Every 4 hours Current Patient medication list Depakote Sprinkles 125 mg capsule 1 tablet oral As Needed Every 6 Hours Current Patient medication list Dulcolax (bisacodyl) 10 mg rectal suppository 1 SUPP rect As needed Current Patient medication list Allergies, adverse reactions, alerts Allergen Category Ingredient Status Reaction Severity Onset No known drug allergies No known drug allergies No known drug allergies Active Immunizations No immunizations recorded for this patient visit Relevant diagnostic tests and/or laboratory data RESULTS CBC [id number]:00 Result Normal Range Units WBC 7.85 4.60-10.20 x 103/uL RBC 4.54 4.04-6.13 x 106/uL Hemoglobin L 11.6 12.2-18.1 g/dl Hematocrit 38.0 37.7-53.7 % MCV 83.7 80.0-97.0 FL MCH L 25.6 27.0-31.2 pg MCHC L 30.5 31.8-35.4 g/dl RDW H 16.9 11.6-14.8 % Platelets 360 142-424 x 103/uL MPV 9.5 9.4-12.4 FL Neutrophil % 70.4 37-80 % Neutrophils 5.53 2.0-6.9 x 103/uL Lymphocyte % 19.9 10-50 % Lymphocytes 1.56 0.6-3.4 x 103/uL Monocyte % 6.0 0-12 % Monocytes 0.47 0.0-1.0 x 103/uL Eosinophil % 3.1 0-7 % Eosinophils 0.24 0-0.7 x 103/uL Basophil % 0.6 0-2 % Basophils 0.05 0.0-0.1 x 103/uL Manual Diff Not Indicated :34:00 Result Normal Range Units WBC 8.08 4.60-10.20 x 103/uL RBC 4.41 4.04-6.13 x 106/uL Hemoglobin L 11.5 12.2-18.1 g/dl Hematocrit L 37.4 37.7-53.7 % MCV 84.8 80.0-97.0 FL MCH L 26.1 27.0-31.2 pg MCHC L 30.7 31.8-35.4 g/dl RDW H 17.5 11.6-14.8 % Platelets H 464 142-424 x 103/uL MPV 9.6 9.4-12.4 FL Manual Diff Not Indicated Neutrophil % 75.3 37-80 % Neutrophils 6.08 2.0-6.9 x 103/uL Lymphocyte % 14.1 10-50 % Lymphocytes 1.14 0.6-3.4 x 103/uL Monocyte % 7.7 0-12 % Monocytes 0.62 0.0-1.0 x 103/uL Eosinophil % 2.2 0-7 % Eosinophils 0.18 0-0.7 x 103/uL Basophil % 0.7 0-2 % Basophils 0.06 0.0-0.1 x 103/uL Urinalysis :43:00 Result Normal Range Units Site Voided Urine Color Yellow Yellow Urine Appearance Clear Clear Urine Glucose Negative Negative Urine Bilirubin Negative Negative Urine Ketones Negative Negative Urine Specific [place] 1.020 1.010-1.020 Urine PH 6.0 5.5-7.5 Urine Protein Negative Negative Urine Urobilinogen 0.2 0.2-1.0 Urine Nitrites Negative Negative Urine Blood Negative Negative Urine Leukocytes AB Trace Negative Urine WBC's 6-10 Urine RBC's 0-2 Squamous Epi's Trace Chemistry Group :55:00 Result Normal Range Units Glucose H 115 65-110 mg/dl BUN 15 7-21 mg/dl Creatinine 0.9 0.7-1.5 mg/dl Sodium 140 137-145 mmol/L Potassium 4.3 3.6-5.0 mmol/L Chloride 101 98-107 mmol/L CO2 H 31 22-30 mmol/L BUN/Creatinine Ratio 16.6 7-25 Ratio Calcium 9.1 8.4-10.2 mg/dl Osmolality 272 261-280 mOsm/kg Anion GAP 7.7 mmol/L :34:00 Result Normal Range Units Glucose 98 65-110 mg/dl BUN H 22 7-21 mg/dl Creatinine 0.9 0.7-1.5 mg/dl Sodium 145 137-145 mmol/L Potassium 4.7 3.6-5.0 mmol/L Chloride 100 98-107 mmol/L CO2 H 31 22-30 mmol/L BUN/Creatinine Ratio 23.0 7-25 Ratio Calcium 9.2 8.4-10.2 mg/dl Protein Total 8.0 6.3-8.2 g/dl Albumin 3.8 3.5-5.0 g/dl A/G Ratio L 0.9 1.2-2.2 Ratio AST 18 15-46 U/L ALT 18 7-56 U/L ALP 98 38-126 U/L Bilirubin Total 0.4 0.2-1.3 mg/dl Osmolality H 283 261-280 mOsm/kg Globulin H 4.2 2.4-3.5 g/dL Valproic Acid L 46.12 50-100 ug/ml Free T4 1.21 0.70-1.48 ng/dl TSH 2.11 0.35-4.94 uIU/mL Reference Lab Group [id number]:00 EKG See Manual Report Urinalysis [id number] Result Normal Range Units Site Voided Urine Color Yellow Yellow Urine Appearance Clear Clear Urine Glucose Negative Negative Urine Bilirubin Negative Negative Urine Ketones Negative Negative Urine Specific [place] 1.020 1.010-1.020 Urine PH 6.0 5.5-7.5 Urine Protein Negative Negative Urine Urobilinogen 0.2 0.2-1.0 Urine Nitrites Negative Negative Urine Blood Negative Negative Urine Leukocytes AB Trace Negative Urine WBC's 6-10 Urine RBC's 0-2 Squamous Epi's Trace Special Chemistry [id number]:00 Result Normal Range Units Vitamin B12 214 763-9752 pg/ml Folate >40 Test Folate with result of>40 was originally reported as 40.0 and was changed on 07/31/2014 17:20 by [facility] History of procedures No procedures recorded for this patient visit. Functional status Functional Status Finding Observation Time Dexterity Right-handed : Weight Bearing Statu Full [id number] Transferring/Ambulat Needs Assistance :00 Bathing Needs Assistance [id number] Dressing Needs Assistance [id number] Eating Independent :00 Drinking Independent :00 Toileting Needs Assistance : Able to Turn Self in Independent :00 Stairs Not Done : Cognitive Status Finding Observation Time Level of Consciousne Alert :15 Oriented to Person Yes :[address] No :15 Oriented to Time No :15 Combative Other (specify) Comment: no combative beahvior noted at this time. [id number] Eyes - JADE Yes :15 Vital signs Type Value Date Respirations 18 :00 Pulse 90 :00 O2 Saturation 96% :00 Systolic Blood Press 132mm/HG :00 Diastolic Blood Pres 68mm/HG :00 Temperature (Fahr) 97.8Degrees :00 Height 60in [id number]:30 Weight 95LB [id number] Social history Type Value Smoking Status NEVER SMOKER Treatment Plan Treatment Plan at [facility] F/U with blanca Kevin August 18 at 1030 Hospital discharge instructions Diagnosis agitation and aggression Diet regular diet Activity Level as tolerated Personal Items Retur Yes Flu Vaccine Given Comment: 01/[address] Kevin Appointment Date and August 18 At 1030
--- OUTSIDE RECORDS SUMMARY | 2016-07-12 19:16 | XMS REPORT ---
Author Author [facility] Medical Staff Organization [facility] Address [address] [place], [place] [id number] Phone [phone] Care Team Providers Care Longwall Machine Operator Helper Name Role Phone JOYCE SALCEDO MD PP [phone] Summary purpose CCDA Sent to [facility] Chief Complaint and Reason for Visit No authorized Reason for Visit (Admitting Diagnosis) is available for this visit. Problem list No authorized problems tracked for continuity of care are available for this visit. Encounters No authorized problems tracked for encounter diagnoses are available for this visit. Medications No home medications recorded for this patient visit Allergies, adverse reactions, alerts Allergen Category Ingredient Status Reaction Severity Onset No known drug allergies No known drug allergies No known drug allergies Active Immunizations No immunizations recorded for this patient visit Relevant diagnostic tests and/or laboratory data No authorized results are available for this patient visit History of procedures Procedure Code Code Type Description Date Performed Performing Physician [id number] CPT-4 ELECTROCARDIOGRAM REPORT 07-31-2014 DANIELA [place] Functional status No functional or cognitive status observations are available for this visit. Vital signs No authorized vital signs are available for this visit. Social history No Social History or smoking status observations were recorded for this visit. ( Unknown if ever smoked.) Treatment Plan No treatment plan text is available for this visit. Hospital discharge instructions No discharge instruction text is available for this visit.
--- OUTSIDE RECORDS SUMMARY | 2016-07-12 19:16 | XMS REPORT | Continuity of Care Document ---
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 07/31/2014 DANIELA MONTANA MD 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 07/31/2014 DANIELA MONTANA MD 307.9 SPECIAL SYMPTOM NEC/NOS 07/31/2014 DANIELA MONTANA MD 312.9 CONDUCT DISTURBANCE NOS 07/31/2014 DANIELA MONTANA MD 401.9 HYPERTENSION NOS 07/31/2014 DANIELA MONTANA MD 564.00 CONSTIPATION NOS 07/31/2014 DANIELA MONTANA MD 799.23 IMPULSIVENESS 07/31/2014 DANIELA MONTANA MD V58.69 FDC MEDICATION USE 08/15/2014 IVAN MEDRANO MD 294.11 DEMENTIA W/ BEHAV DISTUR 08/15/2014 IVAN MEDRANO MD 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 08/15/2014 IVAN MEDRANO MD 307.9 SPECIAL SYMPTOM NEC/NOS 08/15/2014 IVAN MEDRANO MD 312.30 IMPULSE CONTROL DIS NOS 08/15/2014 IVAN MEDRANO MD 331.0 ALZHEIMER'S DISEASE 08/15/2014 IVAN MEDRANO MD 368.9 VISUAL DISTURBANCE NOS 08/15/2014 IVAN MEDRANO MD 401.9 HYPERTENSION NOS 08/15/2014 IVAN MEDRANO MD 564.00 CONSTIPATION NOS 08/15/2014 MITCHELL LIVINGSTON, IVAN Lovell V11.8 HX-MENTAL DISORDER NEC 08/15/2014 MITCHELL LIVINGSTON, IVAN Lovell V15.51 HX TRAUMATIC FX 08/15/2014 MITCHELL LIVINGSTON, IVAN Lovell V60.6 PERSON IN RESIDENT INST 08/15/2014 MITCHELL LIVINGTSON, IVAN Lovell V62.89 PSYCHOLOGICAL STRESS NEC 10/22/2014 GELLENDER DO, LO A Ot 296.80 10/22/2014 GELLENDER DO, LO A Ot 331.0 10/22/2014 GELLENDER DO, LO A Ot 596.54 10/22/2014 GELLENDER DO, LO A Ot 780.52 10/22/2014 GELLENDER DO, LO A Ot 788.20 10/22/2014 GELLENDER DO, LO A Ot 820.09 10/22/2014 GELLENDER DO, LO A Ot E000.8 10/22/2014 GELLENDER DO, LO A Ot E849.7 10/22/2014 GELLENDER DO, LO A Ot E888.9 10/23/2014 GELLENDER DO, LO A Ot 296.80 10/23/2014 GELLENDER DO, LO A Ot 331.0 10/23/2014 GELLENDER DO, LO A Ot 596.54 10/23/2014 GELLENDER DO, LO A Ot 780.52 10/23/2014 GELLENDER DO, LO A Ot 788.20 10/23/2014 GELLENDER DO, LO A Ot 820.09 10/23/2014 GELLENDER DO, LO A Ot E000.8 10/23/2014 GELLENDER DO, LO A Ot E849.7 10/23/2014 GELLENDER DO, LO A Ot E888.9 10/24/2014 GELLENDER DO, LO A Ot 285.1 10/24/2014 GELLENDER DO, LO A Ot 296.80 10/24/2014 GELLENDER DO, LO A Ot 331.0 10/24/2014 GELLENDER DO, LO A Ot 596.54 10/24/2014 GELLENDER DO, LO A Ot 599.0 10/24/2014 GELLENDER DO, LO A Ot 780.52 10/24/2014 GELLENDER DO, LO A Ot 788.20 10/24/2014 GELLENDER DO, LO Flowers Ot 790.92 10/24/2014 GELLENDER DO, LO Flowers Ot 820.09 10/24/2014 GELLENDER DO, LO Flowers Ot E000.8 10/24/2014 GELLENDER DO, LO Flowers Ot E849.7 10/24/2014 GELLENDER DO, LO Flowers Ot E888.9 10/28/2014 ANDREIA LIVINGSTON, ANTOINETTE T Ot 723.0 10/28/2014 ANDREIA LIVINGSTON, ANTOINETTE T Ot 959.09 10/28/2014 ANDREIA LIVINGSTON, ANTOINETTE T Ot E000.8 10/28/2014 ANDREIA LIVINGSTON, ANTOINETTE T Ot E849.7 10/28/2014 ANDREIA LIVINGSTON, ANTOINETTE T Ot E884.4 12/04/2014 OSMAN HDZ MATEUSZ Wally Ot 285.9 ANEMIA NOS 12/04/2014 OSMAN HDZ MATEUSZ Wally Ot 792.1 ABN FIND-STOOL CONTENTS 12/04/2014 OSMAN HDZ MATEUSZ Lo Ot V58.69 OT MED,LT,CURRENT USE 01/06/2016 GELLENDER DO, LO Flowers Ot S69.92XA UNSP INJURY OF LEFT WRIST, HAND AND FING 01/06/2016 GELLENDER DO, LO Flowers Ot X58.XXXA EXPOSURE TO OTHER SPECIFIED FACTORS , INI 01/06/2016 GELLENDER DO, LO Flowers Ot Y99.8 OTHER EXTERNAL CAUSE STATUS 01/27/2016 GELLENDER DO, LO Flowers Ot S69.92XA UNSP INJURY OF LEFT WRIST, HAND AND FING 01/27/2016 GELLENDER DO, LO Flowers Ot X58.XXXA EXPOSURE TO OTHER SPECIFIED FACTORS , INI 01/27/2016 GELLENDER DO, LO Flowers Ot Y99.8 OTHER EXTERNAL CAUSE STATUS 02/04/2016 GELLENDER DO, LO Flowers Ot S69.92XA UNSP INJURY OF LEFT WRIST, HAND AND FING 02/04/2016 GELLENDER DO, LO Flowers Ot X58.XXXA EXPOSURE TO OTHER SPECIFIED FACTORS , INI 02/04/2016 GELLENDER DO, LO Flowers Ot Y99.8 OTHER EXTERNAL CAUSE STATUS 06/29/2016 GELLENDER DO, LO Flowers Ot A41.9 SEPSIS, UNSPECIFIED ORGANISM 06/29/2016 GELLENDER DO, LO Flowers Ot E86.0 DEHYDRATION 06/29/2016 GELLENDER DO, LO Flowers Ot F02.80 DEMENTIA IN OTH DISEASES CLASSD ELSWHR W 06/29/2016 GELLENDER DO, LO Flowers Ot F31.9 BIPOLAR DISORDER, UNSPECIFIED 06/29/2016 GELLENDER DO, LO Flowers Ot G30.9 ALZHEIMER'S DISEASE, UNSPECIFIED 06/29/2016 GELLENDER DO, LO Flowers Ot G47.00 INSOMNIA, UNSPECIFIED 06/29/2016 GELLENDER DO, LO Flowers Ot I10 ESSENTIAL (PRIMARY) HYPERTENSION 06/29/2016 GELLENDER DO, LO Flowers Ot I25.10 ATHSCL HEART DISEASE OF [place] CORONARY 06/29/2016 GELLENDER DO, LO Flowers Ot J18.9 PNEUMONIA, UNSPECIFIED ORGANISM 06/29/2016 GELLENDER DO, LO Flowers Ot J44.0 CHRONIC OBSTRUCTIVE PULMON DISEASE W ACU 06/29/2016 GELLENDER DO, LO Flowers Ot J96.01 ACUTE RESPIRATORY FAILURE WITH HYPOXIA 06/29/2016 GELLENDER DO, LO Flowers Ot K59.09 OTHER CONSTIPATION 06/29/2016 GELLENDER DO, LO Flowers Ot N31.9 NEUROMUSCULAR DYSFUNCTION OF [place], UN 06/29/2016 GELLENDER DO, LO Flowers Ot R13.10 DYSPHAGIA, UNSPECIFIED 06/29/2016 GELLENDER DO, LO Flowers Ot Z66 DO NOT RESUSCITATE 06/29/2016 GELLENDER DO, LO Flowers Ot Z95.1 PRESENCE OF AORTOCORONARY BYPASS GRAFT 06/29/2016 GELLENDER DO, LO Flowers Ot Z96.641 PRESENCE OF RIGHT ARTIFICIAL HIP JOINT 07/01/2016 GELLENDER DO, LO Flowers Ot A41.9 SEPSIS, UNSPECIFIED ORGANISM 07/01/2016 GELLENDER DO, LO Flowers Ot E86.0 DEHYDRATION 07/01/2016 GELLENDER DO, LO Flowers Ot E87.6 HYPOKALEMIA 07/01/2016 GELLENDER DO, LO Flowers Ot F02.80 DEMENTIA IN OTH DISEASES CLASSD ELSWHR W 07/01/2016 GELLENDER DO, LO Flowers Ot F31.9 BIPOLAR DISORDER, UNSPECIFIED 07/01/2016 GELLENDER DO, LO Flowers Ot G30.9 ALZHEIMER'S DISEASE, UNSPECIFIED 07/01/2016 GELLENDER DO, LO Flowers Ot G47.00 INSOMNIA, UNSPECIFIED 07/01/2016 GELLENDER DO, LO Flowers Ot I10 ESSENTIAL (PRIMARY) HYPERTENSION 07/01/2016 GELLENDER DO, LO Flowers Ot I25.10 ATHSCL HEART DISEASE OF [place] CORONARY 07/01/2016 GELLENDER DO, LO Flowers Ot J18.9 PNEUMONIA, UNSPECIFIED ORGANISM 07/01/2016 GELLENDER DO, LO Flowers Ot J44.0 CHRONIC OBSTRUCTIVE PULMON DISEASE W ACU 07/01/2016 GELLENDER DO, LO Flowers Ot J96.01 ACUTE RESPIRATORY FAILURE WITH HYPOXIA 07/01/2016 GELLENDER DO, LO Flowers Ot K59.09 OTHER CONSTIPATION 07/01/2016 GELLENDER DO, LO Flowers Ot N31.9 NEUROMUSCULAR DYSFUNCTION OF [place], UN 07/01/2016 GELLENDER DO, LO Flowers Ot R13.10 DYSPHAGIA, UNSPECIFIED 07/01/2016 GELLENDER DO, LO Flowers Ot Z66 DO NOT RESUSCITATE 07/01/2016 GELLENDER DO, LO Flowers Ot Z95.1 PRESENCE OF AORTOCORONARY BYPASS GRAFT 07/01/2016 GELLENDER DO, LO Flowers Ot Z96.641 PRESENCE OF RIGHT ARTIFICIAL HIP JOINT 07/01/2016 GELLENDER DO, LO Flowers Ot A41.9 SEPSIS, UNSPECIFIED ORGANISM 07/01/2016 GELLENDER DO, LO Flowers Ot E86.0 DEHYDRATION 07/01/2016 GELLENDER DO, LO Flowers Ot E87.6 HYPOKALEMIA 07/01/2016 GELLENDER DO, LO Flowers Ot F02.80 DEMENTIA IN OTH DISEASES CLASSD ELSWHR W 07/01/2016 GELLENDER DO, LO Flowers Ot F31.9 BIPOLAR DISORDER, UNSPECIFIED 07/01/2016 GELLENDER DO, LO Flowers Ot G30.9 ALZHEIMER'S DISEASE, UNSPECIFIED 07/01/2016 GELLENDER DO, LO Flowers Ot G47.00 INSOMNIA, UNSPECIFIED 07/01/2016 GELLENDER DO, LO Flowers Ot I10 ESSENTIAL (PRIMARY) HYPERTENSION 07/01/2016 GELLENDER DO, LO Flowers Ot I25.10 ATHSCL HEART DISEASE OF [place] CORONARY 07/01/2016 GELLENDER DO, LO Flowers Ot J18.9 PNEUMONIA, UNSPECIFIED ORGANISM 07/01/2016 GELLENDER DO, LO Flowers Ot J44.0 CHRONIC OBSTRUCTIVE PULMON DISEASE W ACU 07/01/2016 GELLENDER DO, LO Flowers Ot J96.01 ACUTE RESPIRATORY FAILURE WITH HYPOXIA 07/01/2016 GELLENDER DO, LO Flowers Ot K59.09 OTHER CONSTIPATION 07/01/2016 GELLENDER DO, LO Flowers Ot N31.9 NEUROMUSCULAR DYSFUNCTION OF [place]AD[place], UN 07/01/2016 GELLENDER DO, LO Flowers Ot R13.10 DYSPHAGIA, UNSPECIFIED 07/01/2016 GELLENDER DO, LO Flowers Ot Z66 DO NOT RESUSCITATE 07/01/2016 GELLENDER DO, LO Flowers Ot Z95.1 PRESENCE OF AORTOCORONARY BYPASS GRAFT 07/01/2016 GELLENDER DO, LO Flowers Ot Z96.641 PRESENCE OF RIGHT ARTIFICIAL HIP JOINT 07/05/2016 GELLENDER DO, LO Flowers Ot F02.80 DEMENTIA IN OTH DISEASES CLASSD ELSWHR W 07/05/2016 GELLENDER DO, LO Flowers Ot F31.9 BIPOLAR DISORDER, UNSPECIFIED 07/05/2016 GELLENDER DO, LO Flowers Ot G30.9 ALZHEIMER'S DISEASE, UNSPECIFIED 07/05/2016 GELLENDER DO, LO Flowers Ot G47.00 INSOMNIA, UNSPECIFIED 07/05/2016 GELLENDER DO, LO Flowers Ot I10 ESSENTIAL (PRIMARY) HYPERTENSION 07/05/2016 GELLENDER DO, LO Flowers Ot I25.10 ATHSCL HEART DISEASE OF [place] CORONARY 07/05/2016 GELLENDER DO, LO Flowers Ot J18.9 PNEUMONIA, UNSPECIFIED ORGANISM 07/05/2016 GELLENDER DO, LO Flowers Ot J44.0 CHRONIC OBSTRUCTIVE PULMON DISEASE W ACU 07/05/2016 GELLENDER DO, LO Flowers Ot K59.09 OTHER CONSTIPATION 07/05/2016 GELLENDER DO, LO Flowers Ot N31.9 NEUROMUSCULAR DYSFUNCTION OF [place], UN 07/05/2016 GELLENDER DO, LO Flowers Ot R13.10 DYSPHAGIA, UNSPECIFIED 07/05/2016 GELLENDER DO, LO Flowers Ot Z66 DO NOT RESUSCITATE 07/05/2016 GELLENDER DO, LO Flowers Ot Z95.1 PRESENCE OF AORTOCORONARY BYPASS GRAFT 07/05/2016 GELLENDER DO, LO Flowers Ot Z96.641 PRESENCE OF RIGHT ARTIFICIAL HIP JOINT 07/06/2016 GELLENDER DO, LO Flowers Ot F02.80 DEMENTIA IN OTH DISEASES CLASSD ELSWHR W 07/06/2016 GELLENDER DO, LO Flowers Ot F31.9 BIPOLAR DISORDER, UNSPECIFIED 07/06/2016 GELLENDER DO, LO Flowers Ot G30.9 ALZHEIMER'S DISEASE, UNSPECIFIED 07/06/2016 GELLENDER DO, LO Flowers Ot G47.00 INSOMNIA, UNSPECIFIED 07/06/2016 GELLENDER DO, LO Flowers Ot I10 ESSENTIAL (PRIMARY) HYPERTENSION 07/06/2016 GELLENDER DO, LO Flowers Ot I25.10 ATHSCL HEART DISEASE OF [place] CORONARY 07/06/2016 GELLENDER DO, LO Flowers Ot J18.9 PNEUMONIA, UNSPECIFIED ORGANISM 07/06/2016 GELLENDER DO, LO Flowers Ot J44.0 CHRONIC OBSTRUCTIVE PULMON DISEASE W ACU 07/06/2016 GELLENDER DO, LO Flowers Ot K59.09 OTHER CONSTIPATION 07/06/2016 GELLENDER DO, LO Flowers Ot N31.9 NEUROMUSCULAR DYSFUNCTION OF [place], UN 07/06/2016 GELLENDER DO, LO Flowers Ot R13.10 DYSPHAGIA, UNSPECIFIED 07/06/2016 GELLENDER DO, LO Flowers Ot Z66 DO NOT RESUSCITATE 07/06/2016 GELLENDER DO, LO Flowers Ot Z95.1 PRESENCE OF AORTOCORONARY BYPASS GRAFT 07/06/2016 GELLENDER DO, LO Flowers Ot Z96.641 PRESENCE OF RIGHT ARTIFICIAL HIP JOINT 07/06/2016 GELLENDER DO, LO Flowers Ot E87.6 HYPOKALEMIA 07/06/2016 GELLENDER DO, LO Flowers Ot F02.80 DEMENTIA IN OTH DISEASES CLASSD ELSWHR W 07/06/2016 GELLENDER DO, LO Flowers Ot F31.9 BIPOLAR DISORDER, UNSPECIFIED 07/06/2016 GELLENDER DO, LO Flowers Ot G30.9 ALZHEIMER'S DISEASE, UNSPECIFIED 07/06/2016 GELLENDER DO, LO Flowers Ot G47.00 INSOMNIA, UNSPECIFIED 07/06/2016 GELLENDER DO, LO Flowers Ot I10 ESSENTIAL (PRIMARY) HYPERTENSION 07/06/2016 GELLENDER DO, LO Flowers Ot I25.10 ATHSCL HEART DISEASE OF [place] CORONARY 07/06/2016 GELLENDER DO, LO Flowers Ot J18.9 PNEUMONIA, UNSPECIFIED ORGANISM 07/06/2016 GELLENDER DO, LO Flowers Ot J44.0 CHRONIC OBSTRUCTIVE PULMON DISEASE W ACU 07/06/2016 GELLENDER DO, LO Flowers Ot K59.09 OTHER CONSTIPATION 07/06/2016 GELLENDER LO HDZ Ot N31.9 NEUROMUSCULAR DYSFUNCTION OF [place]AD[place], UN 07/06/2016 JMLENDER LO HDZ Ot R13.10 DYSPHAGIA, UNSPECIFIED 07/06/2016 VERONICADER , LO Flowers Ot Z66 DO NOT RESUSCITATE 07/06/2016 LO MOORE DO Ot Z95.1 PRESENCE OF AORTOCORONARY BYPASS GRAFT 07/06/2016 LO MOORE DO Ot Z96.641 PRESENCE OF RIGHT ARTIFICIAL HIP JOINT Procedures Code Description [place] [id number] ELECTROCARDIOGRAM REPORT NAN LIVINGSTON, DANIELA Yoder 07/31/2014 Results Test Result Range EKG - 08/04/14 03:53 EKG [facility] COMPLETE BLOOD COUNT - 08/08/14 06:18 Platelet 360 10^3u 142-424 MPV 9.5 FL 9.4-12.4 [place] # 0.47 10^3u 0.0-1.0 RBC 4.54 10^6u 4.04-6.13 [place] % 6.0 % 0-12 RDW 16.9 % 11.6-14.8 Neut # 5.53 10^3u 2.0-6.9 Neut % 70.4 % 37-80 WBC 7.85 10^3u 4.60-10.20 MCV 83.7 FL 80.0-97.0 Baso # 0.05 10^3u 0.0-0.1 Baso % 0.6 % 0-2 Eos # 0.24 10^3u 0-0.7 Eos % 3.1 % 0-7 Lymph % 19.9 % 10-50 MCHC 30.5 G/DL 31.8-35.4 MCH 25.6 PG 27.0-31.2 Lymph # 1.56 10^3u 0.6-3.4 HGB 11.6 G/DL 12.2-18.1 HCT 38.0 % 37.7-53.7 BMP - 08/08/14 06:18 Osmo Calculated 272 MOSM 261-280 Sodium 140 MMOLL 137-145 Potassium 4.3 MMOLL 3.6-5.0 Calcium 9.1 MG/DL 8.4-10.2 BUN 15 MG/DL 7-21 Chloride 101 MMOLL 98-107 Anion GAP 7.7 Bun/Creat 16.6 RATIO 7-25 CO2 31 MMOLL 22-30 Glucose 115 MG/DL 65-110 Creatinine 0.9 MG/DL 0.7-1.5 Influenza virus A and B antigen detection - 06/27/16 20:11 FLU RESULT NEGATIVE FOR INFLUENZA A AND B ANTIGENS BY [facility] PT panel in platelet poor plasma by coagulation assay - 06/27/16 20:28 Prothrombin time (PT) in platelet poor plasma by coagulation assay 15.4 s 12.2-14.7 INR in platelet poor plasma or blood by coagulation assay 1.3 0.8-1.4 Activated partial thromboplastin time (aPTT) in platelet poor plasma bycoagulation assay - 06/27/16 20:28 Activated partial thromboplastin time (aPTT) in platelet poor plasma bycoagulation assay 40 s 24-35 Complete blood count (CBC) with automated white blood cell (WBC) differential - 06/27/16 20:28 Blood leukocytes automated count (number/volume) 14.6 10*3/ uL 4.3-11.0 Blood erythrocytes automated count (number/volume) 4.58 10*6 /uL 4.35-5.85 Venous blood hemoglobin measurement (mass/volume) 12.5 g/dL 11.5-16.0 Blood hematocrit (volume fraction) 40 % 35-52 Automated erythrocyte mean corpuscular volume 87 [foz_us] 80-99 Automated erythrocyte mean corpuscular hemoglobin (mass per erythrocyte) 27 pg 25-34 Automated erythrocyte mean corpuscular hemoglobin concentration measurement ( mass/volume) 31 g/dL 32-36 Automated erythrocyte distribution width ratio 15.2 % 10.0-14.5 Automated blood platelet count (count/volume) 306 10*3/uL 130-400 Automated blood platelet mean volume measurement 10.0 [foz_ us] 7.4-10.4 Automated blood neutrophils/100 leukocytes 87 % 42-75 Automated blood lymphocytes/100 leukocytes 6 % 12-44 Blood monocytes/100 leukocytes 7 % 0-12 Automated blood eosinophils/100 leukocytes 0 % 0-10 Automated blood basophils/100 leukocytes 0 % 0-10 Blood neutrophils automated count (number/volume) 12.7 10*3 1.8-7.8 Blood lymphocytes automated count (number/volume) 0.8 10*3 1.0-4.0 Blood monocytes automated count (number/volume) 1.0 10*3 0.0-1.0 Automated eosinophil count 0.0 10*3/uL 0.0-0.3 Automated blood basophil count (count/volume) 0.0 10*3/uL 0.0-0.1 Blood lactic acid measurement (moles/volume) - 06/27/16 20:28 Blood lactic acid measurement (moles/volume) 0.90 mmol/L 0.50-2.00 Comprehensive metabolic panel - 06/27/16 20:28 Serum or plasma sodium measurement (moles/volume) 144 mmol/ L 135-145 Serum or plasma potassium measurement (moles/volume) 4.0 mmol/L 3.6-5.0 Serum or plasma chloride measurement (moles/volume) 106 mmol /L 98-107 Carbon dioxide 25 mmol/L 21-32 Serum or plasma anion gap determination (moles/volume) 13 mmol/L 5-14 Serum or plasma urea nitrogen measurement (mass/volume) 37 mg/dL 7-18 Serum or plasma creatinine measurement (mass/volume) 0.99 mg /dL 0.60-1.30 Serum or plasma urea nitrogen/creatinine mass ratio 37 NRG Serum or plasma creatinine measurement with calculation of estimated glomerular filtration rate 54 NRG Serum or plasma glucose measurement (mass/volume) 132 mg/dL 70-105 Serum or plasma calcium measurement (mass/volume) 9.8 mg/dL 8.5-10.1 Serum or plasma total bilirubin measurement (mass/volume) 0.3 mg/dL 0.1-1.0 Serum or plasma alkaline phosphatase measurement (enzymatic activity/volume) 101 U/L 40-136 Serum or plasma aspartate aminotransferase measurement (enzymatic activity/ volume) 30 U/L 5-34 Serum or plasma alanine aminotransferase measurement (enzymatic activity/volume ) 21 U/L 0-55 Serum or plasma protein measurement (mass/volume) 8.0 g/dL 6.4-8.2 Serum or plasma albumin measurement (mass/volume) 3.4 g/dL 3.2-4.5 Magnesium - 06/27/16 20:28 Magnesium 2.1 mg/dL 1.8-2.4 Serum or plasma creatine kinase measurement (enzymatic activity/volume) - 06/27 20:28 Serum or plasma creatine kinase measurement (enzymatic activity/volume) 24 U/L 29-168 Serum or plasma creatine kinase MB measurement (enzymatic activity/volume) - 20:28 Serum or plasma creatine kinase MB measurement (enzymatic activity/volume) 0.9 ng/mL <6.6 Serum or plasma troponin i.cardiac measurement (mass/volume) - 06/27/16 20:28 Serum or plasma troponin i.cardiac measurement (mass/volume) < ng/mL <0.30 Blood manual differential performed detection - 06/27/16 20:28 Blood monocytes/100 leukocytes 5 % NRG Manual blood segmented neutrophils/100 leukocytes 72 % NRG Blood band neutrophils/100 leukocytes 13 % NRG Manual blood lymphocytes/100 leukocytes 10 % NRG Manual eosinophils/100 leukocytes in nose 0 % NRG Manual blood basophils/100 leukocytes 0 % NRG Blood erythrocyte morphology finding identification NORMAL NRG Serum or plasma lithium measurement (moles/volume) - 06/27/16 20:28 BNP level 48.2 pg/mL <100.0 Bacterial blood culture - 06/27/16 20:28 FREE TEXT EXTERNAL PROBABLE CORYNEBACTERIUM NRG QUANTITY OF GROWTH Isolated NRG Bacterial blood culture [id number] NRG Bacterial blood culture - 06/27/16 20:37 Bacterial blood culture NG NRG Arterial blood gas measurement - 06/27/16 21:00 Blood pCO2 56 mm[Hg] 35-45 Blood pO2 51 mm[Hg] 79-93 Arterial blood bicarbonate measurement (moles/volume) 28 mmol/L 23-27 Arterial blood base excess by calculation 2.6 mmol/L -2.5-2.5 Arterial blood oxygen saturation measurement 81 % 94-100 * Inhaled oxygen flow rate 6L NRG Arterial blood pH measurement with patient temperature correction 7.33 7.37-7.43 Arterial blood carbon dioxide, total measurement (moles/volume) 29.6 mmol/L 21.0-31.0 Body site RIGHT RADIAL NRG Assessment of wrist artery patency prior to arterial puncture POSITIVE NRG Setting of ventilation mode NO NRG Measurement of body temperature 99.9 NRG Complete urinalysis with reflex to culture - 06/27/16 23:09 Urine color determination YELLOW NRG Urine clarity determination VERY CLOUDY NRG Urine pH measurement by test strip 5 5- 9 Specific gravity of urine by test strip 1.015 1.016-1.022 Urine protein assay by test strip, semi-quantitative 3+ NEGATIVE Urine glucose detection by automated test strip NEGATIVE NEGATIVE Erythrocytes detection in urine sediment by light microscopy 5+ NEGATIVE Urine ketones detection by automated test strip NEGATIVE NEGATIVE Urine nitrite detection by test strip NEGATIVE NEGATIVE Urine total bilirubin detection by test strip NEGATIVE NEGATIVE Urine urobilinogen measurement by automated test strip (mass/volume) NORMAL NORMAL Urine leukocyte esterase detection by dipstick 3+ NEGATIVE Automated urine sediment erythrocyte count by microscopy (number/high power field) > [HPF] NRG Automated urine sediment leukocyte count by microscopy (number/high power field ) [HPF] NRG Bacteria detection in urine sediment by light microscopy FEW NRG Squamous epithelial cells detection in urine sediment by light microscopy 2-5 NRG Crystals detection in urine sediment by light microscopy NONE NRG Casts detection in urine sediment by light microscopy NONE NRG Mucus detection in urine sediment by light microscopy NEGATIVE NRG Complete urinalysis with reflex to culture YES NRG Bacterial urine culture - 06/27/16 23:09 Bacterial urine culture FOOTNOTE NRG Complete blood count (CBC) with automated white blood cell (WBC) differential - 06/28/16 06:00 Blood leukocytes automated count (number/volume) 13.8 10*3/ uL 4.3-11.0 Blood erythrocytes automated count (number/volume) 3.83 10*6 /uL 4.35-5.85 Venous blood hemoglobin measurement (mass/volume) 10.3 g/dL 11.5-16.0 Blood hematocrit (volume fraction) 34 % 35-52 Automated erythrocyte mean corpuscular volume 89 [foz_us] 80-99 Automated erythrocyte mean corpuscular hemoglobin (mass per erythrocyte) 27 pg 25-34 Automated erythrocyte mean corpuscular hemoglobin concentration measurement ( mass/volume) 30 g/dL 32-36 Automated erythrocyte distribution width ratio 14.9 % 10.0-14.5 Automated blood platelet count (count/volume) 270 10*3/uL 130-400 Automated blood platelet mean volume measurement 10.0 [foz_ us] 7.4-10.4 Automated blood neutrophils/100 leukocytes 87 % 42-75 Automated blood lymphocytes/100 leukocytes 6 % 12-44 Blood monocytes/100 leukocytes 7 % 0-12 Automated blood eosinophils/100 leukocytes 0 % 0-10 Automated blood basophils/100 leukocytes 0 % 0-10 Blood neutrophils automated count (number/volume) 12.0 10*3 1.8-7.8 Blood lymphocytes automated count (number/volume) 0.9 10*3 1.0-4.0 Blood monocytes automated count (number/volume) 1.0 10*3 0.0-1.0 Automated eosinophil count 0.0 10*3/uL 0.0-0.3 Automated blood basophil count (count/volume) 0.0 10*3/uL 0.0-0.1 Comprehensive metabolic panel - 06/28/16 06:00 Serum or plasma sodium measurement (moles/volume) 145 mmol/ L 135-145 Serum or plasma potassium measurement (moles/volume) 3.9 mmol/L 3.6-5.0 Serum or plasma chloride measurement (moles/volume) 111 mmol /L 98-107 Carbon dioxide 26 mmol/L 21-32 Serum or plasma anion gap determination (moles/volume) 8 mmol/L 5-14 Serum or plasma urea nitrogen measurement (mass/volume) 26 mg/dL 7-18 Serum or plasma creatinine measurement (mass/volume) 0.76 mg /dL 0.60-1.30 Serum or plasma urea nitrogen/creatinine mass ratio 34 NRG Serum or plasma creatinine measurement with calculation of estimated glomerular filtration rate > NRG Serum or plasma glucose measurement (mass/volume) 141 mg/dL 70-105 Serum or plasma calcium measurement (mass/volume) 8.8 mg/dL 8.5-10.1 Serum or plasma total bilirubin measurement (mass/volume) 0.2 mg/dL 0.1-1.0 Serum or plasma alkaline phosphatase measurement (enzymatic activity/volume) 83 U/L 40-136 Serum or plasma aspartate aminotransferase measurement (enzymatic activity/ volume) 22 U/L 5-34 Serum or plasma alanine aminotransferase measurement (enzymatic activity/volume ) 18 U/L 0-55 Serum or plasma protein measurement (mass/volume) 6.6 g/dL 6.4-8.2 Serum or plasma albumin measurement (mass/volume) 2.8 g/dL 3.2-4.5 PT panel in platelet poor plasma by coagulation assay - 06/28/16 06:00 Prothrombin time (PT) in platelet poor plasma by coagulation assay 15.4 s 12.2-14.7 INR in platelet poor plasma or blood by coagulation assay 1.3 0.8-1.4 Complete blood count (CBC) with automated white blood cell (WBC) differential - 06/29/16 05:58 Blood leukocytes automated count (number/volume) 11.5 10*3/ uL 4.3-11.0 Blood erythrocytes automated count (number/volume) 3.57 10*6 /uL 4.35-5.85 Venous blood hemoglobin measurement (mass/volume) 9.7 g/dL 11.5-16.0 Blood hematocrit (volume fraction) 31 % 35-52 Automated erythrocyte mean corpuscular volume 88 [foz_us] 80-99 Automated erythrocyte mean corpuscular hemoglobin (mass per erythrocyte) 27 pg 25-34 Automated erythrocyte mean corpuscular hemoglobin concentration measurement ( mass/volume) 31 g/dL 32-36 Automated erythrocyte distribution width ratio 14.8 % 10.0-14.5 Automated blood platelet count (count/volume) 265 10*3/uL 130-400 Automated blood platelet mean volume measurement 9.7 [foz_us ] 7.4-10.4 Automated blood neutrophils/100 leukocytes 83 % 42-75 Automated blood lymphocytes/100 leukocytes 9 % 12-44 Blood monocytes/100 leukocytes 8 % 0-12 Automated blood eosinophils/100 leukocytes 0 % 0-10 Automated blood basophils/100 leukocytes 0 % 0-10 Blood neutrophils automated count (number/volume) 9.5 10*3 1.8-7.8 Blood lymphocytes automated count (number/volume) 1.0 10*3 1.0-4.0 Blood monocytes automated count (number/volume) 0.9 10*3 0.0-1.0 Automated eosinophil count 0.0 10*3/uL 0.0-0.3 Automated blood basophil count (count/volume) 0.0 10*3/uL 0.0-0.1 PT panel in platelet poor plasma by coagulation assay - 06/29/16 05:58 Prothrombin time (PT) in platelet poor plasma by coagulation assay 15.6 s 12.2-14.7 INR in platelet poor plasma or blood by coagulation assay 1.3 0.8-1.4 Comprehensive metabolic panel - 06/29/16 05:58 Serum or plasma sodium measurement (moles/volume) 141 mmol/ L 135-145 Serum or plasma potassium measurement (moles/volume) 3.6 mmol/L 3.6-5.0 Serum or plasma chloride measurement (moles/volume) 109 mmol /L 98-107 Carbon dioxide 25 mmol/L 21-32 Serum or plasma anion gap determination (moles/volume) 7 mmol/L 5-14 Serum or plasma urea nitrogen measurement (mass/volume) 11 mg/dL 7-18 Serum or plasma creatinine measurement (mass/volume) 0.65 mg /dL 0.60-1.30 Serum or plasma urea nitrogen/creatinine mass ratio 17 NRG Serum or plasma creatinine measurement with calculation of estimated glomerular filtration rate > NRG Serum or plasma glucose measurement (mass/volume) 119 mg/dL 70-105 Serum or plasma calcium measurement (mass/volume) 8.5 mg/dL 8.5-10.1 Serum or plasma total bilirubin measurement (mass/volume) 0.4 mg/dL 0.1-1.0 Serum or plasma alkaline phosphatase measurement (enzymatic activity/volume) 81 U/L 40-136 Serum or plasma aspartate aminotransferase measurement (enzymatic activity/ volume) 30 U/L 5-34 Serum or plasma alanine aminotransferase measurement (enzymatic activity/volume ) 21 U/L 0-55 Serum or plasma protein measurement (mass/volume) 6.0 g/dL 6.4-8.2 Serum or plasma albumin measurement (mass/volume) 2.5 g/dL 3.2-4.5 Capillary blood glucose measurement by glucometer (mass/volume) - 06/29/16 22: 14 Capillary blood glucose measurement by glucometer (mass/volume) 117 mg/dL 70-110 Complete blood count (CBC) with automated white blood cell (WBC) differential - 06/30/16 06:25 Blood leukocytes automated count (number/volume) 9.8 10*3/ uL 4.3-11.0 Blood erythrocytes automated count (number/volume) 4.25 10*6 /uL 4.35-5.85 Venous blood hemoglobin measurement (mass/volume) 11.6 g/dL 11.5-16.0 Blood hematocrit (volume fraction) 37 % 35-52 Automated erythrocyte mean corpuscular volume 87 [foz_us] 80-99 Automated erythrocyte mean corpuscular hemoglobin (mass per erythrocyte) 27 pg 25-34 Automated erythrocyte mean corpuscular hemoglobin concentration measurement ( mass/volume) 32 g/dL 32-36 Automated erythrocyte distribution width ratio 14.7 % 10.0-14.5 Automated blood platelet count (count/volume) 299 10*3/uL 130-400 Automated blood platelet mean volume measurement 9.7 [foz_us ] 7.4-10.4 Automated blood neutrophils/100 leukocytes 81 % 42-75 Automated blood lymphocytes/100 leukocytes 10 % 12-44 Blood monocytes/100 leukocytes 7 % 0-12 Automated blood eosinophils/100 leukocytes 2 % 0-10 Automated blood basophils/100 leukocytes 0 % 0-10 Blood neutrophils automated count (number/volume) 8.0 10*3 1.8-7.8 Blood lymphocytes automated count (number/volume) 1.0 10*3 1.0-4.0 Blood monocytes automated count (number/volume) 0.7 10*3 0.0-1.0 Automated eosinophil count 0.2 10*3/uL 0.0-0.3 Automated blood basophil count (count/volume) 0.0 10*3/uL 0.0-0.1 Whole blood basic metabolic panel - 06/30/16 06:25 Serum or plasma sodium measurement (moles/volume) 139 mmol/ L 135-145 Serum or plasma potassium measurement (moles/volume) 3.2 mmol/L 3.6-5.0 Serum or plasma chloride measurement (moles/volume) 105 mmol /L 98-107 Carbon dioxide 24 mmol/L 21-32 Serum or plasma anion gap determination (moles/volume) 10 mmol/L 5-14 Serum or plasma urea nitrogen measurement (mass/volume) 7 mg /dL 7-18 Serum or plasma creatinine measurement (mass/volume) 0.69 mg /dL 0.60-1.30 Serum or plasma urea nitrogen/creatinine mass ratio 10 NRG Serum or plasma creatinine measurement with calculation of estimated glomerular filtration rate > NRG Serum or plasma glucose measurement (mass/volume) 100 mg/dL 70-105 Serum or plasma calcium measurement (mass/volume) 9.3 mg/dL 8.5-10.1 Vancomycin trough - 06/30/16 06:25 Vancomycin trough 7.7 ug/mL 10.0-20.0 C DIFFICILE AG + TOXIN A/B. - 06/30/16 20:00 RESULTS NEGATIVE FOR ANTIGEN AND TOXIN A/B NRG Complete blood count (CBC) with automated white blood cell (WBC) differential - 07/01/16 05:30 Blood leukocytes automated count (number/volume) 8.7 10*3/ uL 4.3-11.0 Blood erythrocytes automated count (number/volume) 3.42 10*6 /uL 4.35-5.85 Venous blood hemoglobin measurement (mass/volume) 9.2 g/dL 11.5-16.0 Blood hematocrit (volume fraction) 29 % 35-52 Automated erythrocyte mean corpuscular volume 86 [foz_us] 80-99 Automated erythrocyte mean corpuscular hemoglobin (mass per erythrocyte) 27 pg 25-34 Automated erythrocyte mean corpuscular hemoglobin concentration measurement ( mass/volume) 31 g/dL 32-36 Automated erythrocyte distribution width ratio 14.5 % 10.0-14.5 Automated blood platelet count (count/volume) 296 10*3/uL 130-400 Automated blood platelet mean volume measurement 9.7 [foz_us ] 7.4-10.4 Automated blood neutrophils/100 leukocytes 81 % 42-75 Automated blood lymphocytes/100 leukocytes 11 % 12-44 Blood monocytes/100 leukocytes 7 % 0-12 Automated blood eosinophils/100 leukocytes 1 % 0-10 Automated blood basophils/100 leukocytes 0 % 0-10 Blood neutrophils automated count (number/volume) 7.0 10*3 1.8-7.8 Blood lymphocytes automated count (number/volume) 1.0 10*3 1.0-4.0 Blood monocytes automated count (number/volume) 0.6 10*3 0.0-1.0 Automated eosinophil count 0.1 10*3/uL 0.0-0.3 Automated blood basophil count (count/volume) 0.0 10*3/uL 0.0-0.1 Whole blood basic metabolic panel - 07/01/16 05:30 Serum or plasma sodium measurement (moles/volume) 140 mmol/ L 135-145 Serum or plasma potassium measurement (moles/volume) 3.2 mmol/L 3.6-5.0 Serum or plasma chloride measurement (moles/volume) 105 mmol /L 98-107 Carbon dioxide 26 mmol/L 21-32 Serum or plasma anion gap determination (moles/volume) 9 mmol/L 5-14 Serum or plasma urea nitrogen measurement (mass/volume) 6 mg /dL 7-18 Serum or plasma creatinine measurement (mass/volume) 0.69 mg /dL 0.60-1.30 Serum or plasma urea nitrogen/creatinine mass ratio 9 NRG Serum or plasma creatinine measurement with calculation of estimated glomerular filtration rate > NRG Serum or plasma glucose measurement (mass/volume) 125 mg/dL 70-105 Serum or plasma calcium measurement (mass/volume) 8.5 mg/dL 8.5-10.1 Complete blood count (CBC) with automated white blood cell (WBC) differential - 07/04/16 08:55 Blood leukocytes automated count (number/volume) 10.0 10*3/ uL 4.3-11.0 Blood erythrocytes automated count (number/volume) 4.13 10*6 /uL 4.35-5.85 Venous blood hemoglobin measurement (mass/volume) 11.1 g/dL 11.5-16.0 Blood hematocrit (volume fraction) 36 % 35-52 Automated erythrocyte mean corpuscular volume 87 [foz_us] 80-99 Automated erythrocyte mean corpuscular hemoglobin (mass per erythrocyte) 27 pg 25-34 Automated erythrocyte mean corpuscular hemoglobin concentration measurement ( mass/volume) 31 g/dL 32-36 Automated erythrocyte distribution width ratio 14.5 % 10.0-14.5 Automated blood platelet count (count/volume) 422 10*3/uL 130-400 Automated blood platelet mean volume measurement 9.3 [foz_us ] 7.4-10.4 Automated blood neutrophils/100 leukocytes 79 % 42-75 Automated blood lymphocytes/100 leukocytes 13 % 12-44 Blood monocytes/100 leukocytes 5 % 0-12 Automated blood eosinophils/100 leukocytes 2 % 0-10 Automated blood basophils/100 leukocytes 0 % 0-10 Blood neutrophils automated count (number/volume) 8.0 10*3 1.8-7.8 Blood lymphocytes automated count (number/volume) 1.3 10*3 1.0-4.0 Blood monocytes automated count (number/volume) 0.5 10*3 0.0-1.0 Automated eosinophil count 0.2 10*3/uL 0.0-0.3 Automated blood basophil count (count/volume) 0.0 10*3/uL 0.0-0.1 Whole blood basic metabolic panel - 07/04/16 08:55 Serum or plasma sodium measurement (moles/volume) 146 mmol/ L 135-145 Serum or plasma potassium measurement (moles/volume) 5.4 mmol/L 3.6-5.0 Serum or plasma chloride measurement (moles/volume) 103 mmol /L 98-107 Carbon dioxide 31 mmol/L 21-32 Serum or plasma anion gap determination (moles/volume) 12 mmol/L 5-14 Serum or plasma urea nitrogen measurement (mass/volume) 6 mg /dL 7-18 Serum or plasma creatinine measurement (mass/volume) 0.74 mg /dL 0.60-1.30 Serum or plasma urea nitrogen/creatinine mass ratio 8 NRG Serum or plasma creatinine measurement with calculation of estimated glomerular filtration rate > NRG Serum or plasma glucose measurement (mass/volume) 117 mg/dL 70-105 Serum or plasma calcium measurement (mass/volume) 9.8 mg/dL 8.5-10.1 Serum or plasma lithium measurement (moles/volume) - 07/04/16 08:55 BNP level 65.2 pg/mL <100.0 Complete blood count (CBC) with automated white blood cell (WBC) differential - 07/05/16 08:30 Blood leukocytes automated count (number/volume) 11.2 10*3/ uL 4.3-11.0 Blood erythrocytes automated count (number/volume) 4.02 10*6 /uL 4.35-5.85 Venous blood hemoglobin measurement (mass/volume) 10.8 g/dL 11.5-16.0 Blood hematocrit (volume fraction) 35 % 35-52 Automated erythrocyte mean corpuscular volume 86 [foz_us] 80-99 Automated erythrocyte mean corpuscular hemoglobin (mass per erythrocyte) 27 pg 25-34 Automated erythrocyte mean corpuscular hemoglobin concentration measurement ( mass/volume) 31 g/dL 32-36 Automated erythrocyte distribution width ratio 14.3 % 10.0-14.5 Automated blood platelet count (count/volume) 470 10*3/uL 130-400 Automated blood platelet mean volume measurement 8.9 [foz_us ] 7.4-10.4 Automated blood neutrophils/100 leukocytes 83 % 42-75 Automated blood lymphocytes/100 leukocytes 10 % 12-44 Blood monocytes/100 leukocytes 5 % 0-12 Automated blood eosinophils/100 leukocytes 2 % 0-10 Automated blood basophils/100 leukocytes 0 % 0-10 Blood neutrophils automated count (number/volume) 9.3 10*3 1.8-7.8 Blood lymphocytes automated count (number/volume) 1.2 10*3 1.0-4.0 Blood monocytes automated count (number/volume) 0.5 10*3 0.0-1.0 Automated eosinophil count 0.2 10*3/uL 0.0-0.3 Automated blood basophil count (count/volume) 0.0 10*3/uL 0.0-0.1 Whole blood basic metabolic panel - 07/05/16 08:30 Serum or plasma sodium measurement (moles/volume) 143 mmol/ L 135-145 Serum or plasma potassium measurement (moles/volume) 3.5 mmol/L 3.6-5.0 Serum or plasma chloride measurement (moles/volume) 104 mmol /L 98-107 Carbon dioxide 26 mmol/L 21-32 Serum or plasma anion gap determination (moles/volume) 13 mmol/L 5-14 Serum or plasma urea nitrogen measurement (mass/volume) 8 mg /dL 7-18 Serum or plasma creatinine measurement (mass/volume) 0.66 mg /dL 0.60-1.30 Serum or plasma urea nitrogen/creatinine mass ratio 12 NRG Serum or plasma creatinine measurement with calculation of estimated glomerular filtration rate > NRG Serum or plasma glucose measurement (mass/volume) 110 mg/dL 70-105 Serum or plasma calcium measurement (mass/volume) 9.5 mg/dL 8.5-10.1 Complete blood count (CBC) with automated white blood cell (WBC) differential - 07/06/16 06:30 Blood leukocytes automated count (number/volume) 7.7 10*3/ uL 4.3-11.0 Blood erythrocytes automated count (number/volume) 3.77 10*6 /uL 4.35-5.85 Venous blood hemoglobin measurement (mass/volume) 10.2 g/dL 11.5-16.0 Blood hematocrit (volume fraction) 33 % 35-52 Automated erythrocyte mean corpuscular volume 87 [foz_us] 80-99 Automated erythrocyte mean corpuscular hemoglobin (mass per erythrocyte) 27 pg 25-34 Automated erythrocyte mean corpuscular hemoglobin concentration measurement ( mass/volume) 31 g/dL 32-36 Automated erythrocyte distribution width ratio 14.7 % 10.0-14.5 Automated blood platelet count (count/volume) 434 10*3/uL 130-400 Automated blood platelet mean volume measurement 8.8 [foz_us ] 7.4-10.4 Automated blood neutrophils/100 leukocytes 74 % 42-75 Automated blood lymphocytes/100 leukocytes 17 % 12-44 Blood monocytes/100 leukocytes 6 % 0-12 Automated blood eosinophils/100 leukocytes 3 % 0-10 Automated blood basophils/100 leukocytes 0 % 0-10 Blood neutrophils automated count (number/volume) 5.7 10*3 1.8-7.8 Blood lymphocytes automated count (number/volume) 1.3 10*3 1.0-4.0 Blood monocytes automated count (number/volume) 0.4 10*3 0.0-1.0 Automated eosinophil count 0.2 10*3/uL 0.0-0.3 Automated blood basophil count (count/volume) 0.0 10*3/uL 0.0-0.1 Whole blood basic metabolic panel - 07/06/16 06:30 Serum or plasma sodium measurement (moles/volume) 146 mmol/ L 135-145 Serum or plasma potassium measurement (moles/volume) 3.4 mmol/L 3.6-5.0 Serum or plasma chloride measurement (moles/volume) 105 mmol /L 98-107 Carbon dioxide 31 mmol/L 21-32 Serum or plasma anion gap determination (moles/volume) 10 mmol/L 5-14 Serum or plasma urea nitrogen measurement (mass/volume) 14 mg/dL 7-18 Serum or plasma creatinine measurement (mass/volume) 0.67 mg /dL 0.60-1.30 Serum or plasma urea nitrogen/creatinine mass ratio 21 NRG Serum or plasma creatinine measurement with calculation of estimated glomerular filtration rate > NRG Serum or plasma glucose measurement (mass/volume) 104 mg/dL 70-105 Serum or plasma calcium measurement (mass/volume) 9.1 mg/dL 8.5-10.1 Encounters ACCT No. Visit Date/Time Discharge Status Pt. Type Provider Facility Loc./Unit Complaint [id number] 07/31/2014 14:25:00 08/15/2014 10 :10:00 DIS Inpatient MITCHELL LIVINGSTON, [facility] [id number] 07/31/2014 14:25:00 07/31/2014 14 :25:00 DIS Outpatient NAN LIVINGSTON, [facility] OTHER
--- OUTSIDE RECORDS SUMMARY | 2016-07-12 19:16 | XMS REPORT ---
Author Author Antoine Ogden [facility] Address [address] [place], [place] [id number] Care Team Providers Care Pill Maker Name Role Phone Antoine Ogden PCP Unavailable Allergies and Adverse Reactions Name Reaction Notes NO KNOWN DRUG ALLERGIES Plan of Treatment Planned Activity Comments Planned Date Planned Time Plan/Goal CHEST X-RAY 2VW FRONTAL&LATL 03/05/2013 12:00 AM CHEST X-RAY 2VW FRONTAL&LATL 05/19/2014 12:00 AM METABOLIC PANEL TOTAL CA 05/22/2014 12:00 AM COMPLETE CBC W/AUTO DIFF WBC 05/22/2014 12:00 AM Medications Active Name Start Date Estimated Completion Date SIG Comments trazodone oral tablet 50 mg 1 tablet at HS prn ipratropium-albuterol inhalation solution for nebulization 0.5 mg-3 mg(2.5 mg base)/3 mL inhale 3 milliliters by nebulization route 4 times per day aspirin oral tablet,delayed release (DR/EC) 81 mg take 1 tablet (81 mg) by oral route once daily Ultram oral tablet 50 mg may take 1 tablet tid prn Albuteral with Proventil 2.5mg/ 3cc bid per nebulizer Vitamin B12 oral 1000mcg take 1 tab. daily Depakote oral tablet,delayed release (DR/EC) 125 mg 07/22/2014 08/21/2014 take 2 tablets (250 mg) by oral route 2 times per day for 30 days folic acid oral tablet 1 mg take 1 tablet (1 mg) by oral route once daily quetiapine oral tablet 25 mg 07/22/2014 take 1 tablet in the evening depakote sprinkles oral 125mg cap take 1 cap PO every 6hr pnr Namenda Titration Anand oral tablets,dose pack 5-10 mg 07/24/2014 take as directed Name Start Date Expiration Date SIG Comments Paxil Oral Tablet 10 mg 04/08/2010 06/07/2010 take 1 tablet (10 mg) by oral route once daily for 30 days Ambien Oral tablet 5 mg 12/01/2011 06/28/2012 take 1 tablets by oral route once daily at bedtime Lasix Oral tablet 40 mg 08/08/2012 10/07/2012 take 1 tablet (40 mg) by oral route once daily for 30 days Exelon Transdermal Patch 24 hr 9.5 mg/24 hour 02/08/2013 02/08/2013 apply 1 patch (9.5 mg) by transdermal route once daily Seroquel Oral tablet 50 mg 02/08/2013 03/10/2013 take 1 tablet by oral route once a day (at bedtime) for 30 days melatonin Oral tablet 5 mg 02/08/2013 03/10/2013 take 1 tablet by oral route once a day (at bedtime) for 30 days DuoNeb Inhalation Solution for Nebulization 0.5 mg-3 mg(2.5 mg base)/3 mL 02/0803/10/2013 inhale 3 milliliters by nebulization route 4 times per day for 30 days nicotine Transdermal Patch 24 hr 21 mg/24 hr 02/08/2013 03/01/2013 apply 1 patch (21 mg) by transdermal route once daily and remove at bedtime for 21 days Symbicort inhalation HFA aerosol inhaler 160-4.5 mcg/actuation 03/07/2013 inhale 2 puffs by inhalation route 2 times per day in the morning and evening enalapril maleate Oral tablet 10 mg 04/25/2013 07/24/2013 TAKE 1 TABLET BY MOUTH TWO TIMES A DAY FOR BLOOD PRESSURE *GEN VASOTEC* furosemide Oral tablet 40 mg 04/25/2013 09/22/2013 TAKE 1 TABLET (40 MG) BY ORAL ROUTE ONCE DAILY FOR 30 DAYS metoprolol tartrate Oral tablet 50 mg 04/25/2013 07/24/2013 TAKE 1 TABLET BY MOUTH TWO TIMES A DAY FOR BLOOD PRESSURE *GEN LOPRESSOR* Valium oral tablet 2 mg 09/26/2013 03/25/2014 take 1 tablet (2 mg) by oral route 2 times per day for 30 days prn Exelon transdermal patch 24 hour 9.5 mg/24 hr 06/04/2014 07/04/2014 apply 1 patch (9.5 mg) by transdermal route once daily . Do not apply to same area more than once every 14 days. for 30 days Discontinued Name Start Date Discontinued Date SIG Comments Ambien Oral Tablet 5 mg 12/01/2011 12/01/2011 take 1 tablets by oral route once daily at bedtime deleted potassium chloride Oral Tablet, ER Particles/Crystals 20 mEq 05/01/20122012 TAKE 1 TABLET BY MOUTH EVERY DAY WITH FOOD AND PLENTY OF WATER deleted Exelon Transdermal Patch 24 hr 4.6 mg/24 hour 01/27/2013 02/08/2013 apply 1 patch (4.6 mg) by transdermal route once daily X 3 weeks then increase to 9.6/ 24 potassium chloride oral tablet,ER particles/crystals 20 mEq 04/25/20132014 take 1 tablet (20 meq) by oral route once daily with food Ativan Oral tablet 1 mg 04/25/2013 04/26/2013 take 1 tablet by oral route 3 times a day as needed diazepam oral tablet 2 mg 04/26/2013 04/29/2013 take 1 tablet (2 mg) by oral route 2 times per day as needed folic acid oral tablet 1 mg 07/17/2014 take 1 tablet (1 mg) by oral route once daily Seroquel oral tablet 25 mg 07/22/2014 take 1 tab. at bedtime. Problem List Description Status Onset Dementia, senile Active Essential Hypertension Active Chronic Obstructive Pulmonary Disease Active Vital Signs Date Time BP-Sys(mm[Hg] BP-Geovanna(mm[Hg]) HR(bpm) RR(rpm) Temp WT HT HC BMI BSA BMI Percentile O2 Sat(%) 07/22/2014 10:01:00 AM 122 mmHg 74 mmHg 72 bpm 16 rpm 98.6 F 95 lbs 60 in 18.55 kg/m2 1.35 m2 07/03/2014 11:26:00 AM 96 mmHg 58 mmHg 106 bpm 18 rpm 97.7 F 60 in 92 % 06/04/2014 9:58:00 AM 108 mmHg 64 mmHg 78 bpm 20 rpm 98.9 F 99 lbs 60 in 19.3344 kg/m 1.3788 m 98 % 05/22/2014 9:58:00 AM 148 mmHg 70 mmHg 105 bpm 20 rpm 98.4 F 60 in 95 % 03/05/2013 3:17:00 PM 134 mmHg 68 mmHg 67 bpm 18 rpm 98.4 F 88.5 lbs 88 % 02/11/2013 9:00:00 AM 130 mmHg 80 mmHg 82 bpm 18 rpm 98.4 F 86 lbs 60 in 16.80 kg/m2 1.29 m2 05/01/2012 2:24:00 PM 120 mmHg 60 mmHg 78 bpm 20 rpm 98.5 F 85 lbs 60 in 16.6003 kg/m 1.2776 m 92 % 10/27/2011 11:20:00 AM 142 mmHg 80 mmHg 78 bpm 20 rpm 954.999 lbs 08/09/2010 9:22:00 AM 144 mmHg 84 mmHg 76 bpm 119 lbs Social History Name Description Comments Tobacco Former smoker denies alcohol use History of Procedures Date Ordered Description Order Status 05/01/2012 12:00 AM THER/PROPH/DIAG INJ SC/IM Reviewed 03/05/2013 12:00 AM THER/PROPH/DIAG INJ SC/IM Reviewed 08/09/2010 12:00 AM ROUTINE VENIPUNCTURE Reviewed 08/09/2010 12:00 AM COMPLETE CBC AUTOMATED Reviewed 08/09/2010 12:00 AM COMPREHEN METABOLIC PANEL Reviewed 08/09/2010 12:00 AM LIPID PANEL Reviewed Results Summary Not available. History Of Immunizations Not available. History of Past Illness Name Date of Onset Comments Essential Hypertension Dementia, senile Chronic Obstructive Pulmonary Disease Essential Hypertension Aug 09 2010 9:22AM Dementia Aug 09 2010 9:22AM Edema Aug 09 2010 9:22AM Essential Hypertension Oct 27 2011 11:22AM Senile Dementia With Depressive Features Oct 27 2011 11:22AM Senile Dementia With Depressive Features May 01 2012 2:25PM Chronic Obstructive Pulmonary Disease May 01 2012 2:25PM Weight Loss May 01 2012 2:25PM Dementia Feb 11 2013 9:11AM Dysphagia Feb 11 2013 9:11AM Bronchitis, Acute Mar 05 2013 3:20PM Cough May 19 2014 2:53PM Hyperkalemia May 22 2014 10:04AM Chronic Obstructive Pulmonary Disease Jun 04 2014 10:07AM Dementia Jun 04 2014 10:07AM Chronic Obstructive Pulmonary Disease Jul 03 2014 11:34AM Dementia Jul 03 2014 11:34AM Dementia Jul 22 2014 10:06AM Payers Insurance Name Company Name Plan Name Plan Number Policy Number Policy Group Number Start Date Medicare Part A Medicare Part A [id number] Sunday, 2003 [facility] Comm [id number] Saturday, 2013 Medicare Part B Medicare Of [place] [id number] N/A History of Encounters Visit Date Visit Type Provider 07/22/2014 Office visit Antoine Ogden MD 07/03/2014 Office visit Antoine Ogden MD 06/04/2014 Office visit Antoine Ogden MD 05/22/2014 Office visit Antoine Ogden MD 05/19/2014 Radiology FRACISCO OLIVARES [employer] 02/26/2014 [facility] Oriana Cooper MD 03/05/2013 Office visit Eva Crabtree [employer] 02/11/2013 Office visit Antoine Ogden MD 01/16/2013 [facility] Carmela Stallworth MD 05/01/2012 Office visit JAE RICKS 10/27/2011 Office visit JAE RICKS 08/09/2010 Office visit Jae Ramos PA-C 03/06/2009 Office visit Jae Ramos PA-C 02/16/2009 [facility] Alisha Leigh MD 02/15/2009 [facility] Alisha Leigh MD 02/14/2009 [facility] Alisha Leigh MD 02/13/2009 Laboratory Alisha Leigh MD 02/13/2009 [facility] Alisha Leigh MD 02/12/2009 Laboratory Alisha Leigh MD 02/06/2009 Laboratory Jorgito Palma MD 02/06/2009 Voided Jorgito Palma MD 02/06/2009 Laboratory Jorgito Palma MD 02/05/2009 Laboratory Jorgito Palma MD 12/03/2008 Office visit JAE RICKS
--- OUTSIDE RECORDS SUMMARY | 2016-07-12 19:33 | XMS REPORT | Continuity of Care Document ---
Author Author [facility] Address Unknown Phone Unavailable Allergies Active Description Code Type Severity Reaction Onset Reported/Identified Relationship to Patient Clinical Status Yes No known drug allergies [id number] ND N/A N/A 07/31/2014 Confirmed or Verified Yes No Known Drug Allergies [id number] Drug Allergy Unknown N/ A 10/20/2014 Medications [...] 799.23 IMPULSIVENESS 07/31/2014 DANIELA MONTANA MD V58.69 [facility] MEDICATION USE 08/15/2014 IVAN MEDRANO MD 294.11 [...] V60.6 PERSON IN RESIDENT INST 08/15/2014 MITCHELL LIVINGSTON, IVAN Lovell V62.89 PSYCHOLOGICAL STRESS NEC 10/22/2014 [...] Flowers 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 06/29/2016 GELLENDER DO, LO Flowers [...] Flowers 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 07/01/2016 GELLENDER DO, LO Flowers [...] Flowers 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 07/01/2016 GELLENDER DO, LO Flowers [...] Flowers 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 07/05/2016 GELLENDER DO, LO Flowers [...] Flowers 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 07/06/2016 GELLENDER DO, LO Flowers [...] Flowers 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 07/06/2016 GELLENDER DO, LO Flowers [...] Procedures Code Description [place] [address] ELECTROCARDIOGRAM REPORT NAN LIVINGSTON, DANIELA Yoder 07/31/2014 Results Test Result Range EKG - 08/04/14 03:53 EKG [facility] COMPLETE BLOOD COUNT - 08/08/14 06:18 Platelet 360 10^3u 142-424 MPV 9.5 FL 9.4-12.4 [place] # 0.47 10^3u 0.0-1.0 RBC 4.54 10^6u 4.04-6.13 [place] % 6.0 % 0-12 RDW 16.9 % [...] FOR INFLUENZA A AND B ANTIGENS BY [facility] PT panel in platelet poor plasma [...] OF GROWTH Isolated NRG Bacterial blood culture [id number] NRG Bacterial blood culture - 06/27/16 20:37 [...] Status Pt. Type Provider Facility Loc./Unit Complaint [id number] 07/31/2014 14:25:00 08/15/2014 10 :10:00 DIS Inpatient MITCHELL LIVINGSTON, [facility] [id number] 07/31/2014 14:25:00 07/31/2014 14 :25:00 DIS Outpatient NAN LIVINGSTON, [facility] OTHER
== END 2016-07-01 13:10 | disposition swing bed (61) | DRG 871 ==
LOC: DELPENDDIS → EDUNIT# 19:37 → ER 19:38 → 4TH 21:00
PROVIDERS: ADMIT Family Medicine; ATTEND Family Medicine
DX: A41.9 Sepsis, unspecified organism (principal); J44.0 Chronic obstructive pulmonary disease with (acute) lower respiratory infection; J18.9 Pneumonia, unspecified organism; J96.01 Acute respiratory failure with hypoxia; E86.0 Dehydration; I25.10 Atherosclerotic heart disease of native coronary artery without angina pectoris; I10 Essential (primary) hypertension; Z66 Do not resuscitate; G30.9 Alzheimer's disease, unspecified; F02.80 Dementia in other diseases classified elsewhere, unspecified severity, without behavioral disturbance, psychotic disturbance, mood disturbance, and anxiety; N31.9 Neuromuscular dysfunction of bladder, unspecified; K59.09 Other constipation; R13.10 Dysphagia, unspecified; G47.00 Insomnia, unspecified; F31.9 Bipolar disorder, unspecified; E87.6 Hypokalemia; Z95.1 Presence of aortocoronary bypass graft; Z96.641 Presence of right artificial hip joint
CPT/HCPCS: 36415; 71010; 80048; 80053; 80202; 81000; 82550; 82553; 82805; 82962; 83605; 83735; 83880; 84484; 85007; 85025; 85027; 85610; 85730; 87040; 87088; 87324; 87449; 87804; 93005; 93041; 94640; 94760; 96361; 96365

== ENCOUNTER 2016-07-01 11:54 | Inpatient (IN) | payer MEDICARE, MEDICAID ==
[~2016-07-01] VITALS: Ht 152.4 cm; Wt 39.6 kg
[~2016-07-01 11:54] MED LIST changes: +ACET325T38 PO; +FLUO10TA PO; +MULT-166 PO
[2016-07-01] MEDS ORDERED: POLYETHYLENE GLYCOL 17 GM (MIRALAX) PACK PO PRN (13:15)
[2016-07-01] MEDS ORDERED: MILK OF MAGNESIA 400 MG/5 ML 30 ML UDC PO PRN (13:15)
[2016-07-01] MEDS ORDERED: RT-ALBUTEROL SULF 2.5 MG/3 ML PRE-MIX VIAL IH PRN (13:15)
[2016-07-01] MEDS ORDERED: ACETAMINOPHEN 650 MG SUPP (TYLENOL) PR PRN (13:15)
[2016-07-01] MEDS ORDERED: CATHETER FLUSH 10 ML SYR IV PRN (13:15)
[2016-07-01] MEDS: RT-ALBUTEROL SULF 2.5 MG/3 ML PRE-MIX VIAL IH SCH ×3 (14:56→22:43)
[2016-07-01 18:05] VITALS: BP 132/66
[2016-07-01] MEDS: D5 1/2 NS 1000 ML IV SOLUTION 1,000 ML IV SCH (18:23)
[2016-07-01] MEDS: BETHANECHOL 25 MG (URECHOLINE) TAB PO SCH ×2 (18:24→20:47)
[2016-07-01] MEDS: ENOXAPARIN 30 MG/0.3 ML (LOVENOX) SYR SC SCH (20:46)
[2016-07-01] MEDS: MELATONIN 3 MG TABLET PO SCH (20:46)
[2016-07-01] MEDS: PIPERACILLIN SODIUM/TAZOBACTAM 4.5 GM in NS (IVPB) 100 ML IV SCH (20:47)
[2016-07-01] MEDS: DOCUSATE SODIUM 100 MG (COLACE) CAP PO SCH (20:47)
[2016-07-02] MEDS: D5 1/2 NS 1000 ML IV SOLUTION 1,000 ML IV SCH ×2 (01:26→18:09)
[2016-07-02] MEDS: RT-ALBUTEROL SULF 2.5 MG/3 ML PRE-MIX VIAL IH SCH ×6 (02:20→22:13)
[2016-07-02 05:00] VITALS: BP 157/70
[2016-07-02] MEDS: BETHANECHOL 25 MG (URECHOLINE) TAB PO SCH ×4 (06:05→20:00)
[2016-07-02] MEDS: MULTIVIT W/MINERALS TAB (THERAGRAN M) PO SCH (06:05)
[2016-07-02] MEDS: DOCUSATE SODIUM 100 MG (COLACE) CAP PO SCH ×2 (09:00→19:58)
[2016-07-02] MEDS: VITAMIN D3 1,000 UNITS (CHOLECALCIFEROL) TABLET PO SCH (09:48)
[2016-07-02] MEDS: FOLIC ACID 1 MG TAB PO SCH (09:49)
[2016-07-02] MEDS: PIPERACILLIN SODIUM/TAZOBACTAM 4.5 GM in NS (IVPB) 100 ML IV SCH ×2 (09:49→19:58)
[2016-07-02] MEDS: lisINopril 10 MG (PRINIVIL) TAB PO SCH (09:49)
[2016-07-02] MEDS: ASCORBIC ACID (VIT C) 500 MG TABLET PO SCH (09:49)
[2016-07-02] MEDS: FUROSEMIDE 40 MG (LASIX) TAB PO SCH (09:49)
[2016-07-02] MEDS: FLUoxetine HCL 10 MG (PROzac) CAPSULE/TABLET PO SCH (09:49)
--- NOTE | 2016-07-02 11:22 | Diagnostic Imaging Report ---
INDICATION: Pneumonia. Comparison is made with prior examination from 07/01/16. FINDINGS: There is a right basilar pneumonia. There is cardiomegaly. The left lung is clear. There is no pneumothorax. The mediastinum is unremarkable. IMPRESSION: Cardiomegaly and persistent right basilar pneumonia Dictated by: Dictated on workstation # [id number]
[2016-07-02] MEDS: ACETAMINOPHEN 325 MG TABLET/CAPLET (TYLENOL) PO PRN (16:47)
[2016-07-02 18:25] VITALS: BP 128/55
[2016-07-02] MEDS: MELATONIN 3 MG TABLET PO SCH (20:01)
[2016-07-02] MEDS: ENOXAPARIN 30 MG/0.3 ML (LOVENOX) SYR SC SCH (20:01)
[2016-07-03] MEDS: RT-ALBUTEROL SULF 2.5 MG/3 ML PRE-MIX VIAL IH SCH ×6 (02:21→21:17)
[2016-07-03 05:00] VITALS: BP 119/56
[2016-07-03] MEDS: BETHANECHOL 25 MG (URECHOLINE) TAB PO SCH ×4 (06:27→20:40)
[2016-07-03] MEDS: MULTIVIT W/MINERALS TAB (THERAGRAN M) PO SCH (06:28)
[2016-07-03] MEDS: DOCUSATE SODIUM 100 MG (COLACE) CAP PO SCH ×2 (09:00→20:40)
[2016-07-03] MEDS: PIPERACILLIN SODIUM/TAZOBACTAM 4.5 GM in NS (IVPB) 100 ML IV SCH ×2 (09:23→20:40)
[2016-07-03] MEDS: lisINopril 10 MG (PRINIVIL) TAB PO SCH (09:24)
[2016-07-03] MEDS: FUROSEMIDE 40 MG (LASIX) TAB PO SCH (09:24)
[2016-07-03] MEDS: FLUoxetine HCL 10 MG (PROzac) CAPSULE/TABLET PO SCH (09:24)
[2016-07-03] MEDS: VITAMIN D3 1,000 UNITS (CHOLECALCIFEROL) TABLET PO SCH (09:24)
[2016-07-03] MEDS: FOLIC ACID 1 MG TAB PO SCH (09:24)
[2016-07-03] MEDS: ASCORBIC ACID (VIT C) 500 MG TABLET PO SCH (09:24)
[2016-07-03] MEDS: D5 1/2 NS 1000 ML IV SOLUTION 1,000 ML IV SCH (16:49)
[2016-07-03 17:46] VITALS: BP 132/52
[2016-07-03] MEDS: ENOXAPARIN 30 MG/0.3 ML (LOVENOX) SYR SC SCH (20:40)
[2016-07-03] MEDS: MELATONIN 3 MG TABLET PO SCH (20:40)
[2016-07-04] MEDS: RT-ALBUTEROL SULF 2.5 MG/3 ML PRE-MIX VIAL IH SCH ×6 (02:17→22:37)
[2016-07-04 05:16] VITALS: BP 132/75
[2016-07-04] MEDS: MULTIVIT W/MINERALS TAB (THERAGRAN M) PO SCH (05:25)
[2016-07-04] MEDS: BETHANECHOL 25 MG (URECHOLINE) TAB PO SCH ×4 (05:25→20:15)
--- NOTE | 2016-07-04 07:28 | Progress Note (SOAP) ---
Subjective Subjective/Events-last exam pneumonia. Alzheimer's. Patient more alert and breathing better today. Nasal oxygen at 5 L Objective Exam Vital Signs Date Time Temp Pulse Resp B/P (MAP) Pulse Ox O2 Delivery O2 Flow Rate FiO2 07/04/16 07:04 92 5.00 07/04/16 05:16 97.0 83 24 132/75 97 Nasal Cannula 3.50 07/04/16 02:17 98 4.50 07/03/16 21:17 90 4.00 07/03/16 21:15 92 Nasal Cannula 4.00 07/03/16 19:01 90 3.50 07/03/16 17:46 97.3 90 22 132/52 93 Nasal Cannula 3.50 07/03/16 14:46 92 3.00 07/03/16 10:49 Nasal Cannula 3.50 07/03/16 10:36 92 3.00 I & O 07/04/16 06:59 Intake Total 660 ml Balance 660 ml Capillary Refill : General Appearance: No Apparent Distress, Thin HEENT: Normal ENT Inspection Neck: Full Range of Motion, Normal Inspection Respiratory: Decreased Breath Sounds, Other (wheezing much better) Cardiovascular: Regular Rate, Rhythm Gastrointestinal: non tender, soft Assessment/Plan Assessment/Plan Assess & Plan/Chief Complaint pneumonia. Alzheimer's . To try to reduce nasal oxygen LO MOORE DO Jul 04, 2016 07:28
--- NOTE | 2016-07-04 07:44 | Pulmonary Progress Note ---
Subjective Subjective/Events-last exam no complications noted. Exam Exam Vital Signs Date Time Temp Pulse Resp B/P (MAP) Pulse Ox O2 Delivery O2 Flow Rate FiO2 07/04/16 07:04 92 5.00 07/04/16 05:16 97.0 83 24 132/75 97 Nasal Cannula 3.50 07/04/16 02:17 98 4.50 07/03/16 21:17 90 4.00 07/03/16 21:15 92 Nasal Cannula 4.00 07/03/16 19:01 90 3.50 07/03/16 17:46 97.3 90 22 132/52 93 Nasal Cannula 3.50 07/03/16 14:46 92 3.00 07/03/16 10:49 Nasal Cannula 3.50 07/03/16 10:36 92 3.00 I & O 07/04/16 07:00 Intake Total 660 ml Balance 660 ml General Appearance: No Apparent Distress, Thin HEENT: Normal ENT Inspection Neck: Full Range of Motion, Normal Inspection Respiratory: Decreased Breath Sounds, Other (wheezing much better) Cardiovascular: Regular Rate, Rhythm Gastrointestinal: non tender, soft Assessment/Plan Assessment/Plan resolving HCAP with hypoxia - zosyn -repeat labs with BNP d/c IVF Dementia HANSA CAR DO Jul 04, 2016 07:44
--- NOTE | 2016-07-04 07:55 | Diagnostic Imaging Report ---
INDICATION: Pneumonia. TECHNIQUE: Single view chest 7:38 AM. CORRELATION STUDY: 07/02/2016. FINDINGS: Extensive infiltrate of the right lung base persists. This may be very slightly less dense from prior study. Left lung generally stable. Heart size and mediastinum unchanged. IMPRESSION: 1. Dense consolidating infiltrate at the right lung base is again demonstrated but perhaps of very slightly improved from prior examination. Dictated by: Dictated on workstation # [id number]
[2016-07-04] MEDS: lisINopril 10 MG (PRINIVIL) TAB PO SCH (08:33)
[2016-07-04] MEDS: FUROSEMIDE 40 MG (LASIX) TAB PO SCH (08:33)
[2016-07-04] MEDS: ASCORBIC ACID (VIT C) 500 MG TABLET PO SCH (08:33)
[2016-07-04] MEDS: PIPERACILLIN SODIUM/TAZOBACTAM 4.5 GM in NS (IVPB) 100 ML IV SCH (08:33)
[2016-07-04] MEDS: FLUoxetine HCL 10 MG (PROzac) CAPSULE/TABLET PO SCH (08:33)
[2016-07-04] MEDS: ACETAMINOPHEN 325 MG TABLET/CAPLET (TYLENOL) PO PRN ×2 (08:33→18:38)
[2016-07-04] MEDS: VITAMIN D3 1,000 UNITS (CHOLECALCIFEROL) TABLET PO SCH (08:33)
[2016-07-04] MEDS: FOLIC ACID 1 MG TAB PO SCH (08:33)
[2016-07-04] MEDS: DOCUSATE SODIUM 100 MG (COLACE) CAP PO SCH ×2 (08:35→20:15)
[2016-07-04 09:02] LABS: BASOPHILS % (AUTO) 0 % (0-10); EOSINOPHILS # (AUTO) 0.2 10^3/uL (0.0-0.3); EOSINOPHILS % (AUTO) 2 % (0-10); LYMPHOCYTES # (AUTO) 1.3 X 10^3 (1.0-4.0); LYMPHOCYTES % (AUTO) 13 % (12-44); MEAN CORPUSCULAR HEMOGLOBIN 27 PG (25-34); MEAN CORPUSCULAR HGB CONC 31 G/DL (32-36); MEAN CORPUSCULAR VOLUME 87 FL (80-99); MEAN PLATELET VOLUME 9.3 FL (7.4-10.4); MONOCYTES # (AUTO) 0.5 X 10^3 (0.0-1.0); MONOCYTES % (AUTO) 5 % (0-12); NEUTROPHILS % (AUTO) 79 % (42-75); PLATELET COUNT 422 10^3/uL (130-400); RED BLOOD COUNT 4.13 10^6/uL (4.35-5.85); RED CELL DISTRIBUTION WIDTH 14.5 % (10.0-14.5)
[2016-07-04 09:27] LABS: ANION GAP 12 MMOL/L (5-14); BLOOD UREA NITROGEN 6 MG/DL (7-18); BUN/CREATININE RATIO 8; CALCIUM 9.8 MG/DL (8.5-10.1); CARBON DIOXIDE 31 MMOL/L (21-32); CHLORIDE 103 MMOL/L (98-107); CREATININE SERUM 0.74 MG/DL (0.60-1.30); GFR ESTIMATED > 60; GLUCOSE 117 MG/DL (70-105); POTASSIUM 5.4 MMOL/L (3.6-5.0); SODIUM 146 MMOL/L (135-145)
[2016-07-04] MEDS ORDERED: D5 LR IV SOLUTION 1,000 ML IV SCH (11:00)
[2016-07-04] MEDS ORDERED: D5W 1000 ML IV SOLUTION 1,000 ML IV SCH (11:00)
[2016-07-04 18:25] VITALS: BP 172/79
[2016-07-04] MEDS: MELATONIN 3 MG TABLET PO SCH (20:15)
[2016-07-04] MEDS: ENOXAPARIN 30 MG/0.3 ML (LOVENOX) SYR SC SCH (20:15)
[2016-07-05] MEDS: RT-ALBUTEROL SULF 2.5 MG/3 ML PRE-MIX VIAL IH SCH ×5 (03:02→19:30)
[2016-07-05] MEDS: MULTIVIT W/MINERALS TAB (THERAGRAN M) PO SCH (05:19)
[2016-07-05] MEDS: BETHANECHOL 25 MG (URECHOLINE) TAB PO SCH ×4 (05:19→21:01)
[2016-07-05 06:00] VITALS: BP 137/66
--- NOTE | 2016-07-05 07:24 | Progress Note (SOAP) ---
Subjective Subjective/Events-last exam pneumonia. Alzheimer's disease. Chest x-ray shows minimal improvement with pneumonia. Patient not in any respiratory distress or difficulty. Spoke to pulmonology and to stop antibiotics. Plan to discharge patient today [facility] Objective Exam Vital Signs Date Time Temp Pulse Resp B/P (MAP) Pulse Ox O2 Delivery O2 Flow Rate FiO2 07/05/16 06:40 90 4.00 07/05/16 06:00 97.5 99 20 137/66 92 Nasal Cannula 4.00 07/04/16 22:37 94 4.00 07/04/16 18:55 95 5.00 07/04/16 18:25 96.6 61 24 172/79 89 Nasal Cannula 4.00 07/04/16 14:37 97 5.00 07/04/16 10:25 94 5.00 I & O 07/05/16 07:00 Intake Total 1060 ml Balance 1060 ml Capillary Refill : General Appearance: No Apparent Distress, Thin HEENT: Normal ENT Inspection Neck: Full Range of Motion, Normal Inspection Respiratory: Chest Non Tender, Lungs Clear, Normal Breath Sounds, No Accessory Muscle Use, No Respiratory Distress Cardiovascular: Regular Rate, Rhythm, No Murmur Gastrointestinal: non tender, soft Results Lab Laboratory Tests 07/04/16 08:55 Laboratory Tests 07/04/16 08:55: White Blood Count 10.0, Red Blood Count 4.13L, Hemoglobin 11.1#L, Hematocrit 36 , Mean Corpuscular Volume 87, Mean Corpuscular Hemoglobin 27, Mean Corpuscular Hemoglobin Concent 31L, Red Cell Distribution Width 14.5, Platelet Count 422H, Mean Platelet Volume 9.3, Neutrophils (%) (Auto) 79H, Lymphocytes (%) (Auto) 13 , Monocytes (%) (Auto) 5, Eosinophils (%) (Auto) 2, Basophils (%) (Auto) 0, Neutrophils # (Auto) 8.0H, Lymphocytes # (Auto) 1.3, Monocytes # (Auto) 0.5, Eosinophils # (Auto) 0.2, Basophils # (Auto) 0.0, Sodium Level 146H, Potassium Level 5.4H, Chloride Level 103, Carbon Dioxide Level 31, Anion Gap 12, Blood Urea Nitrogen 6L, Creatinine 0.74, Estimat Glomerular Filtration Rate > 60, BUN/ Creatinine Ratio 8, Glucose Level 117H, Calcium Level 9.8, B-Type Natriuretic Peptide 65.2 Assessment/Plan Assessment/Plan Assess & Plan/Chief Complaint pneumonia. Alzheimer's . To try to reduce nasal oxygen. . 07/05/16. Pneumonia. Alzheimer's. White blood cell count within normal limits. No elevated temperature. Patient breathing better. Chest x-ray shows minimal improvement of pneumonia. Spoke to pulmonology and plan to discharge today. To follow-up in the office in one week LO MOORE DO Jul 05, 2016 07:24
[2016-07-05] MEDS: ASCORBIC ACID (VIT C) 500 MG TABLET PO SCH (07:54)
[2016-07-05] MEDS: FLUoxetine HCL 10 MG (PROzac) CAPSULE/TABLET PO SCH (07:54)
[2016-07-05] MEDS: VITAMIN D3 1,000 UNITS (CHOLECALCIFEROL) TABLET PO SCH (07:54)
[2016-07-05] MEDS: FUROSEMIDE 40 MG (LASIX) TAB PO SCH (07:54)
[2016-07-05] MEDS: lisINopril 10 MG (PRINIVIL) TAB PO SCH (07:54)
[2016-07-05] MEDS: FOLIC ACID 1 MG TAB PO SCH (07:55)
[2016-07-05] MEDS: DOCUSATE SODIUM 100 MG (COLACE) CAP PO SCH ×2 (07:55→19:30)
[2016-07-05 08:38] LABS: BASOPHILS % (AUTO) 0 % (0-10); EOSINOPHILS # (AUTO) 0.2 10^3/uL (0.0-0.3); EOSINOPHILS % (AUTO) 2 % (0-10); LYMPHOCYTES # (AUTO) 1.2 X 10^3 (1.0-4.0); LYMPHOCYTES % (AUTO) 10 % (12-44); MEAN CORPUSCULAR HEMOGLOBIN 27 PG (25-34); MEAN CORPUSCULAR HGB CONC 31 G/DL (32-36); MEAN CORPUSCULAR VOLUME 86 FL (80-99); MEAN PLATELET VOLUME 8.9 FL (7.4-10.4); MONOCYTES # (AUTO) 0.5 X 10^3 (0.0-1.0); MONOCYTES % (AUTO) 5 % (0-12); NEUTROPHILS # (AUTO) 9.3 X 10^3 (1.8-7.8); NEUTROPHILS % (AUTO) 83 % (42-75); PLATELET COUNT 470 10^3/uL (130-400); RED BLOOD COUNT 4.02 10^6/uL (4.35-5.85); RED CELL DISTRIBUTION WIDTH 14.3 % (10.0-14.5); WHITE BLOOD COUNT 11.2 10^3/uL (4.3-11.0)
[2016-07-05 08:59] LABS: ANION GAP 13 MMOL/L (5-14); BLOOD UREA NITROGEN 8 MG/DL (7-18); BUN/CREATININE RATIO 12; CALCIUM 9.5 MG/DL (8.5-10.1); CARBON DIOXIDE 26 MMOL/L (21-32); CHLORIDE 104 MMOL/L (98-107); CREATININE SERUM 0.66 MG/DL (0.60-1.30); GFR ESTIMATED > 60; GLUCOSE 110 MG/DL (70-105); POTASSIUM 3.5 MMOL/L (3.6-5.0); SODIUM 143 MMOL/L (135-145)
[2016-07-05] MEDS ORDERED: KCL 10 MEQ TAB (MICRO K) PO NR (16:00)
[2016-07-05 18:00] VITALS: BP 155/58
[2016-07-05] MEDS: ENOXAPARIN 30 MG/0.3 ML (LOVENOX) SYR SC SCH (21:02)
[2016-07-05] MEDS: ACETAMINOPHEN 325 MG TABLET/CAPLET (TYLENOL) PO PRN (21:02)
[2016-07-05] MEDS: MELATONIN 3 MG TABLET PO SCH (21:02)
[2016-07-06] MEDS: RT-ALBUTEROL SULF 2.5 MG/3 ML PRE-MIX VIAL IH SCH ×4 (00:20→10:00)
[2016-07-06] MEDS: BETHANECHOL 25 MG (URECHOLINE) TAB PO SCH (05:34)
[2016-07-06] MEDS: MULTIVIT W/MINERALS TAB (THERAGRAN M) PO SCH (05:34)
[2016-07-06 06:42] VITALS: BP 159/90
[2016-07-06 06:44] LABS: BASOPHILS % (AUTO) 0 % (0-10); EOSINOPHILS # (AUTO) 0.2 10^3/uL (0.0-0.3); EOSINOPHILS % (AUTO) 3 % (0-10); LYMPHOCYTES # (AUTO) 1.3 X 10^3 (1.0-4.0); LYMPHOCYTES % (AUTO) 17 % (12-44); MEAN CORPUSCULAR HEMOGLOBIN 27 PG (25-34); MEAN CORPUSCULAR HGB CONC 31 G/DL (32-36); MEAN CORPUSCULAR VOLUME 87 FL (80-99); MEAN PLATELET VOLUME 8.8 FL (7.4-10.4); MONOCYTES # (AUTO) 0.4 X 10^3 (0.0-1.0); MONOCYTES % (AUTO) 6 % (0-12); NEUTROPHILS # (AUTO) 5.7 X 10^3 (1.8-7.8); NEUTROPHILS % (AUTO) 74 % (42-75); PLATELET COUNT 434 10^3/uL (130-400); RED BLOOD COUNT 3.77 10^6/uL (4.35-5.85); RED CELL DISTRIBUTION WIDTH 14.7 % (10.0-14.5); WHITE BLOOD COUNT 7.7 10^3/uL (4.3-11.0)
[2016-07-06 06:59] LABS: ANION GAP 10 MMOL/L (5-14); BLOOD UREA NITROGEN 14 MG/DL (7-18); BUN/CREATININE RATIO 21; CALCIUM 9.1 MG/DL (8.5-10.1); CARBON DIOXIDE 31 MMOL/L (21-32); CHLORIDE 105 MMOL/L (98-107); CREATININE SERUM 0.67 MG/DL (0.60-1.30); GFR ESTIMATED > 60; GLUCOSE 104 MG/DL (70-105); POTASSIUM 3.4 MMOL/L (3.6-5.0); SODIUM 146 MMOL/L (135-145)
[2016-07-06] MEDS ORDERED: KCL 10 MEQ TAB (MICRO K) PO NR (07:30)
--- NOTE | 2016-07-06 07:36 | Progress Note (SOAP) ---
Subjective Subjective/Events-last exam pneumonia. Alzheimer's. Patient breathing much better. Patient has no wheezes. To discharge today back [facility] Objective Exam Vital Signs Date Time Temp Pulse Resp B/P (MAP) Pulse Ox O2 Delivery O2 Flow Rate FiO2 07/06/16 06:42 96.9 100 18 159/90 90 Nasal Cannula 4.00 07/06/16 06:38 92 4.00 07/06/16 02:38 90 4.00 07/05/16 19:30 4.00 07/05/16 18:00 98.0 102 19 155/58 91 Nasal Cannula 4.00 07/05/16 14:49 92 4.00 07/05/16 11:30 92 4.00 07/05/16 09:00 90 4.00 I & O 07/06/16 07:00 Intake Total 955 ml Balance 955 ml Capillary Refill : General Appearance: No Apparent Distress, Thin HEENT: Normal ENT Inspection Neck: Normal Inspection Respiratory: Chest Non Tender, Lungs Clear, Normal Breath Sounds, No Accessory Muscle Use, No Respiratory Distress Cardiovascular: Regular Rate, Rhythm, No Murmur Gastrointestinal: soft Results Lab Laboratory Tests 07/05/16 08:30: White Blood Count 11.2H, Red Blood Count 4.02L, Hemoglobin 10.8L, Hematocrit 35 , Mean Corpuscular Volume 86, Mean Corpuscular Hemoglobin 27, Mean Corpuscular Hemoglobin Concent 31L, Red Cell Distribution Width 14.3, Platelet Count 470H, Mean Platelet Volume 8.9, Neutrophils (%) (Auto) 83H, Lymphocytes (%) (Auto) 10L , Monocytes (%) (Auto) 5, Eosinophils (%) (Auto) 2, Basophils (%) (Auto) 0, Neutrophils # (Auto) 9.3H, Lymphocytes # (Auto) 1.2, Monocytes # (Auto) 0.5, Eosinophils # (Auto) 0.2, Basophils # (Auto) 0.0, Sodium Level 143, Potassium Level 3.5L, Chloride Level 104, Carbon Dioxide Level 26, Anion Gap 13, Blood Urea Nitrogen 8, Creatinine 0.66, Estimat Glomerular Filtration Rate > 60, BUN/ Creatinine Ratio 12, Glucose Level 110H, Calcium Level 9.5 07/06/16 06:30: White Blood Count 7.7, Red Blood Count 3.77L, Hemoglobin 10.2L, Hematocrit 33L, Mean Corpuscular Volume 87, Mean Corpuscular Hemoglobin 27, Mean Corpuscular Hemoglobin Concent 31L, Red Cell Distribution Width 14.7H, Platelet Count 434H, Mean Platelet Volume 8.8, Neutrophils (%) (Auto) 74, Lymphocytes (%) (Auto) 17, Monocytes (%) (Auto) 6, Eosinophils (%) (Auto) 3, Basophils (%) (Auto) 0, Neutrophils # (Auto) 5.7, Lymphocytes # (Auto) 1.3, Monocytes # (Auto) 0.4, Eosinophils # (Auto) 0.2, Basophils # (Auto) 0.0, Sodium Level 146H, Potassium Level 3.4L, Chloride Level 105, Carbon Dioxide Level 31, Anion Gap 10, Blood Urea Nitrogen 14, Creatinine 0.67, Estimat Glomerular Filtration Rate > 60, BUN/ Creatinine Ratio 21, Glucose Level 104, Calcium Level 9.1 Assessment/Plan Assessment/Plan Assess & Plan/Chief Complaint pneumonia. Alzheimer's . To try to reduce nasal oxygen. . 07/05/16. Pneumonia. Alzheimer's. White blood cell count within normal limits. No elevated temperature. Patient breathing better. Chest x-ray shows minimal improvement of pneumonia. Spoke to pulmonology and plan to discharge today. To follow-up in the office in one week. . 07/06/16. Pneumonia better patient lungs are clear now. Alzheimer's disease. White blood cell count within normal limits. Potassium 3.4 hypokalemia LO MOORE DO Jul 06, 2016 07:36
[2016-07-06] MEDS: DOCUSATE SODIUM 100 MG (COLACE) CAP PO SCH (07:54)
[2016-07-06] MEDS: FLUoxetine HCL 10 MG (PROzac) CAPSULE/TABLET PO SCH (07:54)
[2016-07-06] MEDS: ASCORBIC ACID (VIT C) 500 MG TABLET PO SCH (07:54)
[2016-07-06] MEDS: FOLIC ACID 1 MG TAB PO SCH (07:54)
[2016-07-06] MEDS: FUROSEMIDE 40 MG (LASIX) TAB PO SCH (07:54)
[2016-07-06] MEDS: lisINopril 10 MG (PRINIVIL) TAB PO SCH (07:54)
[2016-07-06] MEDS: VITAMIN D3 1,000 UNITS (CHOLECALCIFEROL) TABLET PO SCH (07:54)
[2016-07-06] MEDS ORDERED: LISI10TA2 PO (08:47)
[2016-07-06 10:45] VITALS: BP 159/90
--- NOTE | 2016-07-12 07:12 | Discharge Summary ---
Diagnosis/Chief Complaint Date of Admission Jul 01, 2016 at 13:10 Date of Discharge Jul 06, 2016 at 10:45 Discharge Date: Jul 06, 2016 Discharge Diagnosis pneumonia. Coronary heart disease. Bipolar. Chronic obstructive pulmonary disease. Dementia. DO NOT RESUSCITATE. Hypertension. Hypokalemia. 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 Discharge Physical Examination Allergies: Coded Allergies: No Known Drug Allergies (Unverified , 10/20/14) Vitals & I&Os Vital Signs Date Time Temp Pulse Resp B/P (MAP) Pulse Ox O2 Delivery O2 Flow Rate FiO2 07/06/16 10:45 100 18 159/90 93 0.00 07/06/16 09:00 Nasal Cannula 07/06/16 06:42 96.9 Hospital Course Labs (last 24 hrs) Laboratory Tests 07/04/16 08:55: White Blood Count 10.0, Red Blood Count 4.13L, Hemoglobin 11.1#L, Hematocrit 36 , Mean Corpuscular Volume 87, Mean Corpuscular Hemoglobin 27, Mean Corpuscular Hemoglobin Concent 31L, Red Cell Distribution Width 14.5, Platelet Count 422H, Mean Platelet Volume 9.3, Neutrophils (%) (Auto) 79H, Lymphocytes (%) (Auto) 13 , Monocytes (%) (Auto) 5, Eosinophils (%) (Auto) 2, Basophils (%) (Auto) 0, Neutrophils # (Auto) 8.0H, Lymphocytes # (Auto) 1.3, Monocytes # (Auto) 0.5, Eosinophils # (Auto) 0.2, Basophils # (Auto) 0.0, Sodium Level 146H, Potassium Level 5.4H, Chloride Level 103, Carbon Dioxide Level 31, Anion Gap 12, Blood Urea Nitrogen 6L, Creatinine 0.74, Estimat Glomerular Filtration Rate > 60, BUN/ Creatinine Ratio 8, Glucose Level 117H, Calcium Level 9.8, B-Type Natriuretic Peptide 65.2 07/05/16 08:30: White Blood Count 11.2H, Red Blood Count 4.02L, Hemoglobin 10.8L, Hematocrit 35 , Mean Corpuscular Volume 86, Mean Corpuscular Hemoglobin 27, Mean Corpuscular Hemoglobin Concent 31L, Red Cell Distribution Width 14.3, Platelet Count 470H, Mean Platelet Volume 8.9, Neutrophils (%) (Auto) 83H, Lymphocytes (%) (Auto) 10L , Monocytes (%) (Auto) 5, Eosinophils (%) (Auto) 2, Basophils (%) (Auto) 0, Neutrophils # (Auto) 9.3H, Lymphocytes # (Auto) 1.2, Monocytes # (Auto) 0.5, Eosinophils # (Auto) 0.2, Basophils # (Auto) 0.0, Sodium Level 143, Potassium Level 3.5L, Chloride Level 104, Carbon Dioxide Level 26, Anion Gap 13, Blood Urea Nitrogen 8, Creatinine 0.66, Estimat Glomerular Filtration Rate > 60, BUN/ Creatinine Ratio 12, Glucose Level 110H, Calcium Level 9.5 07/06/16 06:30: White Blood Count 7.7, Red Blood Count 3.77L, Hemoglobin 10.2L, Hematocrit 33L, Mean Corpuscular Volume 87, Mean Corpuscular Hemoglobin 27, Mean Corpuscular Hemoglobin Concent 31L, Red Cell Distribution Width 14.7H, Platelet Count 434H, Mean Platelet Volume 8.8, Neutrophils (%) (Auto) 74, Lymphocytes (%) (Auto) 17, Monocytes (%) (Auto) 6, Eosinophils (%) (Auto) 3, Basophils (%) (Auto) 0, Neutrophils # (Auto) 5.7, Lymphocytes # (Auto) 1.3, Monocytes # (Auto) 0.4, Eosinophils # (Auto) 0.2, Basophils # (Auto) 0.0, Sodium Level 146H, Potassium Level 3.4L, Chloride Level 105, Carbon Dioxide Level 31, Anion Gap 10, Blood Urea Nitrogen 14, Creatinine 0.67, Estimat Glomerular Filtration Rate > 60, BUN/ Creatinine Ratio 21, Glucose Level 104, Calcium Level 9.1 Laboratory Tests 07/04/16 08:55 07/05/16 08:30 07/06/16 06:30 Pending Labs Laboratory Tests 07/04/16 08:55: White Blood Count 10.0, Red Blood Count 4.13, Hemoglobin 11.1, Hematocrit 36, Mean Corpuscular Volume 87, Mean Corpuscular Hemoglobin 27, Mean Corpuscular Hemoglobin Concent 31, Red Cell Distribution Width 14.5, Platelet Count 422, Mean Platelet Volume 9.3, Neutrophils (%) (Auto) 79, Lymphocytes (%) (Auto) 13, Monocytes (%) (Auto) 5, Eosinophils (%) (Auto) 2, Basophils (%) (Auto) 0, Neutrophils # (Auto) 8.0, Lymphocytes # (Auto) 1.3, Monocytes # (Auto) 0.5, Eosinophils # (Auto) 0.2, Basophils # (Auto) 0.0, Sodium Level 146, Potassium Level 5.4, Chloride Level 103, Carbon Dioxide Level 31, Anion Gap 12, Blood Urea Nitrogen 6, Creatinine 0.74, Estimat Glomerular Filtration Rate > 60, BUN/ Creatinine Ratio 8, Glucose Level 117, Calcium Level 9.8, B-Type Natriuretic Peptide 65.2 07/05/16 08:30: White Blood Count 11.2, Red Blood Count 4.02, Hemoglobin 10.8, Hematocrit 35, Mean Corpuscular Volume 86, Mean Corpuscular Hemoglobin 27, Mean Corpuscular Hemoglobin Concent 31, Red Cell Distribution Width 14.3, Platelet Count 470, Mean Platelet Volume 8.9, Neutrophils (%) (Auto) 83, Lymphocytes (%) (Auto) 10, Monocytes (%) (Auto) 5, Eosinophils (%) (Auto) 2, Basophils (%) (Auto) 0, Neutrophils # (Auto) 9.3, Lymphocytes # (Auto) 1.2, Monocytes # (Auto) 0.5, Eosinophils # (Auto) 0.2, Basophils # (Auto) 0.0, Sodium Level 143, Potassium Level 3.5, Chloride Level 104, Carbon Dioxide Level 26, Anion Gap 13, Blood Urea Nitrogen 8, Creatinine 0.66, Estimat Glomerular Filtration Rate > 60, BUN/ Creatinine Ratio 12, Glucose Level 110, Calcium Level 9.5 07/06/16 06:30: White Blood Count 7.7, Red Blood Count 3.77, Hemoglobin 10.2, Hematocrit 33, Mean Corpuscular Volume 87, Mean Corpuscular Hemoglobin 27, Mean Corpuscular Hemoglobin Concent 31, Red Cell Distribution Width 14.7, Platelet Count 434, Mean Platelet Volume 8.8, Neutrophils (%) (Auto) 74, Lymphocytes (%) (Auto) 17, Monocytes (%) (Auto) 6, Eosinophils (%) (Auto) 3, Basophils (%) (Auto) 0, Neutrophils # (Auto) 5.7, Lymphocytes # (Auto) 1.3, Monocytes # (Auto) 0.4, Eosinophils # (Auto) 0.2, Basophils # (Auto) 0.0, Sodium Level 146, Potassium Level 3.4, Chloride Level 105, Carbon Dioxide Level 31, Anion Gap 10, Blood Urea Nitrogen 14, Creatinine 0.67, Estimat Glomerular Filtration Rate > 60, BUN/ Creatinine Ratio 21, Glucose Level 104, Calcium Level 9.1 Radiology Reviewed chest x-ray cardiomegaly and persistent right basal pneumonia. Chest x-ray right infiltrate slightly improved Discussion & Recommendations patient in hospital clinically improved. Patient consulted by pulmonology. Patient discharge back to longterm Patient has 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 Home Medications: Active Scripts Active Lisinopril 10 Mg Tablet 10 Mg PO DAILY MDD 10 mg lisinopril 10 mg po daily Reported Tylenol (Acetaminophen) 325 Mg Tablet 650 Mg PO Q4H PRN TAKES 2 (325MG) TABLETS Multivitamins with Minerals (Multivitamin with Minerals) 1 Each Tablet 1 Tab PO DAILY Fluoxetine HCl 10 Mg Tablet 10 Mg PO DAILY Freeman 5/325 Tablet (Hydrocodone Bit/Acetaminophen) 1 Tab Tablet 1 Tab PO BID Vitamin C 500 Mg (Ascorbic Acid) 500 Mg Tablet 500 Mg PO DAILY Bethanechol Chloride 25 Mg Tablet 25 Mg PO ACHS Mirtazapine 15 Mg (Mirtazapine) 15 Mg Tablet 15 Mg PO HS Miralax 17 Gm Packet (Polyethylene Glycol) 17 Gm Pack 17 Gm PO DAILY PRN Milk Of Magnesia (Magnesium Hydroxide) 400 Mg/5 Ml Oral.susp 30 Ml PO DAILY PRN Melatonin 3 Mg Tablet (Pyridoxine/Melatonin) 1 Tab Tablet 6 Mg PO HS TAKES 2 (3MG) TABLETS Furosemide 40 Mg Tablet 40 Mg PO DAILY Folic Acid 1 Mg Tablet 1 Mg PO DAILY Colace (Docusate Sodium) 100 Mg Cap 100 Mg PO BID Vitamin D3 (Cholecalciferol) 1,000 Unit Capsule 2,000 Unit PO DAILY TAKES 2 (1000UNIT) CAPSULES Instructions to patient/family Please see electonic discharge instructions given to patient. LO MOORE DO Jul 12, 2016 07:11
--- OUTSIDE RECORDS SUMMARY | 2016-07-24 08:36 | XMS REPORT | Continuity of Care Document ---
Author Author [facility] Address Unknown Phone Unavailable Allergies Active Description Code Type Severity Reaction Onset Reported/Identified Relationship to Patient Clinical Status Yes No known drug allergies [id number] ND N/A N/A 07/31/2014 Confirmed or Verified Yes No Known Drug Allergies [id number] Drug Allergy Unknown N/ A 10/20/2014 Medications [...] 799.23 IMPULSIVENESS 07/31/2014 DANIELA MONTANA MD V58.69 HALFWAY MEDICATION USE 08/15/2014 IVAN MEDRANO MD 294.11 [...] PSYCHOLOGICAL STRESS NEC 10/22/2014 GELLENDER DO, LO Flowers Ot 296.80 10/22/2014 GELLENDER DO, LO A Ot 331.0 10/22/2014 GELLENDER DO, LO Flowers Ot 596.54 10/22/2014 GELLENDER DO, LO Flowers Ot 780.52 10/22/2014 GELLENDER DO, LO Flowers Ot 788.20 10/22/2014 GELLENDER DO, LO Flowers Ot 820.09 10/22/2014 GELLENDER DO, LO Flowers Ot E000.8 10/22/2014 GELLENDER DO, LO Flowers Ot E849.7 10/22/2014 GELLENDER DO, LO Flowers Ot E888.9 10/23/2014 GELLENDER DO, LO Flowers Ot 296.80 10/23/2014 GELLENDER DO, LO Flowers Ot 331.0 10/23/2014 GELLENDER DO, LO Flowers Ot 596.54 10/23/2014 GELLENDER DO, LO Flowers Ot 780.52 10/23/2014 GELLENDER DO, LO Flwoers Ot 788.20 10/23/2014 GELLENDER DO, LO Flowers Ot 820.09 10/23/2014 GELLENDER DO, LO Flowers Ot E000.8 10/23/2014 GELLENDER DO, LO A Ot E849.7 10/23/2014 GELLENDER DO, LO A Ot E888.9 10/24/2014 GELLENDER DO, LO Flowers Ot 285.1 AC POSTHEMORRHAG ANEMIA 10/24/2014 GELLENDER DO, LO Flowers Ot 296.80 BIPOLAR DISORDER, UNSPECIFIED 10/24/2014 GELLENDER DO, LO Flowers Ot 331.0 ALZHEIMER'S DISEASE 10/24/2014 GELLENDER DO, LO Flowers Ot 596.54 NEUROGENIC BLADDER, NOT OTHERWISE SPECIF 10/24/2014 GELLENDER DO, LO Flowers Ot 599.0 URIN TRACT INFECTION NOS 10/24/2014 LO MOORE DO Ot 780.52 INSOMNIA, UNSPECIFIED 10/24/2014 LO MOORE DO Ot 788.20 RETENTION OF URINE NOS 10/24/2014 LO MOORE DO Ot 790.92 COAGULATION PROFILE, ABNORMAL 10/24/2014 LO MOORE DO Ot 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 10/24/2014 LO MOORE DO Ot E000.8 OTHER EXTERNAL CAUSE STATUS 10/24/2014 LO MOORE DO Ot E849.7 ACCID IN RESIDENT INSTIT 10/24/2014 LO MOORE DO Ot E888.9 FALL NOS 10/28/2014 ANDREIA LIVINGSTON, ANTOINETTE Danielle Ot 723.0 CERVICAL SPINAL STENOSIS 10/28/2014 ANDREIA LIVINGSTON, ANTOINETTE Danielle Ot 959.09 INJURY OF FACE AND NECK 10/28/2014 ANDREIA LIVINGSTON, ANTOINETTE Danielle Ot E000.8 OTHER EXTERNAL CAUSE STATUS 10/28/2014 ANDREIA LIVINGSTON, ANTOINETTE Danielle Ot E849.7 ACCID IN RESIDENT INSTIT 10/28/2014 ANTOINETTE BOSWELL MD Ot E884.4 FALL FROM BED 12/04/2014 OSMAN HDZ MATEUSZ Lo Ot 285.9 ANEMIA NOS 12/04/2014 OSMAN HDZ MATEUSZ Lo Ot 792.1 ABN FIND-STOOL CONTENTS 12/04/2014 OSMAN HDZ MATEUSZ Lo Ot V58.69 OTH MED,LT,CURRENT USE 01/06/2016 OSCAR HDZ LO Flowers Ot S69.92XA UNSP INJURY OF LEFT WRIST, HAND AND FING 01/06/2016 OSCAR HDZ LO Flowers Ot X58.XXXA EXPOSURE TO OTHER SPECIFIED FACTORS , INI 01/06/2016 OSCAR HDZ LO Flowers Ot Y99.8 OTHER EXTERNAL CAUSE STATUS 01/27/2016 LO MOORE DO Ot S69.92XA UNSP INJURY OF LEFT WRIST, HAND AND FING 01/27/2016 OSCAR HDZ LO Flowers Ot X58.XXXA EXPOSURE TO OTHER SPECIFIED FACTORS , INI 01/27/2016 OSCAR HDZ LO Flowers Ot Y99.8 OTHER EXTERNAL CAUSE STATUS 02/04/2016 LO MOORE DO Ot S69.92XA UNSP INJURY OF LEFT WRIST, [...] Flowers Ot I25.10 ATHSCL HEART DISEASE OF [place] CORONARY 06/29/2016 GELLENDER DO, LO Flowers Ot [...] Flowers Ot I25.10 ATHSCL HEART DISEASE OF [place] CORONARY 07/01/2016 GELLENDER DO, LO Flowers Ot [...] Flowers Ot I25.10 ATHSCL HEART DISEASE OF [place] CORONARY 07/01/2016 GELLENDER DO, LO Flowers Ot [...] Flowers Ot I25.10 ATHSCL HEART DISEASE OF [place] CORONARY 07/05/2016 GELLENDER DO, LO Flowers Ot [...] ALZHEIMER'S DISEASE, UNSPECIFIED 07/06/2016 GELLENDER DO, LO Flowres Ot G47.00 INSOMNIA, UNSPECIFIED 07/06/2016 GELLENDER DO, LO Flowers Ot I10 ESSENTIAL (PRIMARY) HYPERTENSION 07/06/2016 GELLENDER DO, LO Flowers Ot I25.10 ATHSCL HEART DISEASE OF [place] CORONARY 07/06/2016 GELLENDER DO, LO Flowers Ot [...] Flowers Ot I10 ESSENTIAL (PRIMARY) HYPERTENSION 07/06/2016 [facility], LO Lionel Ot I25.10 ATHSCL HEART DISEASE OF [place] CORONARY 07/06/2016 [facility], LO Flowers Ot J18.9 PNEUMONIA, UNSPECIFIED ORGANISM 07/06/2016 [facility] LO Ot J44.0 CHRONIC OBSTRUCTIVE PULMON DISEASE W ACU 07/06/2016 [facility] LO Ot K59.09 OTHER CONSTIPATION 07/06/2016 [facility], LO Flowers Ot N31.9 NEUROMUSCULAR DYSFUNCTION OF BLADDER, UN 07/06/[facility] R13.10 DYSPHAGIA, UNSPECIFIED 07/06/2016 [facility] Z66 DO NOT RESUSCITATE 07/06/2016 [facility] Z95.1 PRESENCE OF AORTOCORONARY BYPASS GRAFT 07/06/2016 [facility] Z96.641 PRESENCE OF RIGHT ARTIFICIAL HIP JOINT 07/12/2016 [facility] S69.92XA UNSP INJURY OF LEFT WRIST, HAND AND FING 07/12/2016 [facility] X58.XXXA EXPOSURE TO OTHER SPECIFIED FACTORS , INI [facility]/12[facility] Y[facility] OTHER EXTERNAL CAUSE STATUS Procedures Code Description [place] [address] ELECTROCARDIOGRAM REPORT NAN LIVINGSTON, DANIELA Yoder 07/31/2014 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 10/20/2014 Results Test Result Range EKG - 08/04/14 03:53 EKG [facility] COMPLETE BLOOD COUNT - 08/08/14 06:18 Platelet 360 10^3u 142-424 MPV 9.5 FL 9.4-12.4 [place] # 0.47 10^3u 0.0-1.0 RBC 4.54 10^6u 4.04-6.13 [place] % 6.0 % 0-12 RDW 16.9 % [...] FOR INFLUENZA A AND B ANTIGENS BY [facility] PT panel in platelet poor plasma [...] PROBABLE CORYNEBACTERIUM NRG QUANTITY OF GROWTH Isolated NR Bacterial blood culture [id number] NR Bacterial blood culture - 06/27/16 20:37 Bacterial blood culture NG NR Arterial blood gas measurement - 06/27/16 21:00 [...] Status Pt. Type Provider Facility Loc./Unit Complaint [id number] 07/31/2014 14:25:00 08/15/2014 10 :10:00 DIS Inpatient MITCHELL LIVINGSTON, [facility] [id number] 07/31/2014 14:25:00 07/31/2014 14 :25:00 DIS Outpatient NAN LIVINGSTON, [facility]
== END 2016-07-06 10:45 | DRG 190 ==
LOC: 4TH 13:10
PROVIDERS: ADMIT Family Medicine; ATTEND Family Medicine
DX: J44.0 Chronic obstructive pulmonary disease with (acute) lower respiratory infection (principal); J18.9 Pneumonia, unspecified organism; I25.10 Atherosclerotic heart disease of native coronary artery without angina pectoris; I10 Essential (primary) hypertension; Z66 Do not resuscitate; G30.9 Alzheimer's disease, unspecified; F02.80 Dementia in other diseases classified elsewhere, unspecified severity, without behavioral disturbance, psychotic disturbance, mood disturbance, and anxiety; N31.9 Neuromuscular dysfunction of bladder, unspecified; K59.09 Other constipation; R13.10 Dysphagia, unspecified; G47.00 Insomnia, unspecified; F31.9 Bipolar disorder, unspecified; E87.6 Hypokalemia; Z96.641 Presence of right artificial hip joint; Z95.1 Presence of aortocoronary bypass graft
CPT/HCPCS: 36415; 71010; 80048; 83880; 85025; 94640; 94760